=== PATIENT | female | born 1975 | race Caucasian/White ===

== ENCOUNTER 2023-01-18 21:41 | Outpatient (REF) | payer BC, SELFPAY ==
[2023-01-23 12:08] LABS: Age Gdln ACOG Testing Note (.); HPV Aptima Negative (Negative); IGP, Aptima HPV, rfx 16/18,45 Note (.)
== END 2023-01-18 21:42 | disposition home or self-care (01) ==
LOC: LAB 21:41
PROVIDERS: Visit Provider Physician Assistant
DX: Z01.419 Encounter for gynecological examination (general) (routine) without abnormal findings (principal)
CPT/HCPCS: 87624; G0145

== ENCOUNTER 2024-01-24 20:35 | Outpatient (REF) | payer BC, SELFPAY ==
[2024-01-28 17:10] LABS: Age Gdln ACOG Testing Note (.); HPV Aptima Negative (Negative); IGP, Aptima HPV, rfx 16/18,45 Note (.)
== END 2024-01-24 20:36 | disposition home or self-care (01) ==
LOC: LAB 20:35
PROVIDERS: Visit Provider Obstetrics & Gynecology
DX: Z01.419 Encounter for gynecological examination (general) (routine) without abnormal findings (principal)
CPT/HCPCS: 88175

== ENCOUNTER 2024-03-09 13:49 | Outpatient (OUT) | payer BC, SELFPAY ==
--- NOTE | 2024-03-09 13:58 | XR_ITS ---
The [address] [address] Patient Name: JAZMYNE MESSINA MRN: [id number] date: 1975 Sex: F Assigned Patient Location: [facility] Current Patient Location: Accession/Order Number: [id number] Exam Date: 03/09/2024 14:10 Report Date: 03/10/2024 06:22 At the request of: CHARLES TORRES Procedure: XR cervical spine 5V EXAMINATION: XR cervical spine 5V HISTORY: Cervical Radicular Pain ; left arm pain during extension of cervical spine COMPARISON: No relevant comparison available. FINDINGS: BONES: No significant spondylosis, scoliosis, fracture, or visible bony lesion. DISC SPACES: Mild narrowing C6-C7. PARASPINOUS: Negative. No paraspinous abnormality is seen. OTHER: Negative. XR/XR cervical spine 5V IMPRESSION: 1. Straightening of normal lordotic curvature; positioning versus muscle spasm. 2. C6 on 7 mild disc space narrowing. Otherwise no significant degenerative disc disease and facet arthropathy. Electronically authenticated by: DEBI ADDISON Date: 03/10/2024 06:22
--- OUTSIDE RECORDS SUMMARY | 2024-03-09 14:06 | XMS_ITS | CCD ---
Author Organization [facility] Inform ion Partnership [facility] Care Team Providers Care Webbing Inspector Name Role Phone JUSTUS BAILEY Attending Unavailable FADUMO SEO Referring Unavailable ANTONIA TORRES Referring Unavailable JUSTUS BAILEY Referring Unavailable ANTONIA TORRES Referring Unavailable DELORIS DEWITT ([facility]) Referring UnavailJUSTUS Hearn Attending Unavailable ANTONIA TORRES Referring Unavailable FADUMO SEO Admitting Unavailable FADUMO SEO Attending Unavailable FADUMO SEO Consulting Unavailable FADUMO SEO Attending Unavailable Allergies Allergy Classification Reported Allergen(s) Allergy Type Date of Onset Reaction(s) Facility (1 source) Morphine; Translations: [MORPHINE] Drug Allergy 05-10-2018 [facility] Repository Medications Current Medications Medication Drug Class(es) Dates Sig (Normalized) Sig (Original) estrogens, conjugated (retirement) 0.3 mg oral tablet (2 sources) Estrogen Start: 4 take 1 tablet by mouth once daily Conjugated Estrogens (Premarin) 0.3 mg tablet Active 0.3 MG PO Daily October 01, 2023 12:00am cyclically Methylprednisolone (2 sources) Corticosteroid Start: 4 Methylprednisolone Active 0 PO per package directions October 01, 2023 12:00am PO PER PKG DIR for 6 days triamcinolone acetonide 1 mg/ml topical cream (2 sources) Corticosteroid Start: 4 Triamcinolone Acetonide Active 1 APPLIC TOPICAL Daily October 01, 2023 12:00am Completed/Discontinued Medications Medication Drug Class(es) Dates Sig (Normalized) Sig (Original) baclofen 10 mg oral tablet (2 sources) gamma-Aminobutyric Acid-ergic Agonist Start: 10-01-2023 End: 10-01-2023 take 10 mg by mouth once daily Baclofen Discontinued 10 MG PO Daily October 01, 2023 12:00am October 01, 2023 10:43am fluticasone propionate 0.05 mg/actuat metered dose nasal spray (2 sources) Corticosteroid Start: 10-01-2023 End: 10-01-2023 take 1 spray(s) nasal route once daily Fluticasone Propionate Discontinued 1 SPRAY INTRANASAL Daily October 01, 2023 12:00am October 01, 2023 11:06am [employer] spray in each nostril Nasally Once a day; Note: Source Status: Start; Provider: Janice Muller gabapentin 100 mg oral capsule (2 sources) Anti-epileptic Agent Start: 10-01-2023 End: 10-01-2023 take 1 capsule by mouth twice daily in the morning, then take 2 capsules by mouth in the evening Gabapentin Discontinued 100 MG PO Twice daily October 01, 2023 12:00am October 01, 2023 11:06am FreeTextSig: TAKE 1 CAPSULE BY MOUTH IN THE MORNING AND 2 CAPSULES IN THE EVENING; Note: Source Status: Start; Refills: 3; Qty: 90 Capsule; Provider: Wilner Knight ( ) Problems Problem Classification Problem Date Documented Date Episodic/Chronic Allergic reactions (3 sources) Contact dermatitis; Translations: [Unspecified contact dermatitis, unspecified cause] 10-05-2023 Episodic Coagulation and hemorrhagic disorders (1 source) Thrombocytopenia, unspecified; Translations: [Thrombocytopenia, unspecified] Onset: 05-13-2018 Chronic Immunizations and screening for infectious disease (1 source) Encounter for screening for human papillomavirus (HPV); Translations: [ENC SCREENING HUMAN PAPILLOMAVIRUS] Onset: 03-27-2020 Episodic Other nutritional; endocrine; and metabolic disorders (1 source) Abnormal weight loss; Translations: [Abnormal weight loss] Onset: 05-13-2018 Episodic Other screening for suspected conditions (not mental disorders or infectious disease) (4 sources) Encounter for screening for malignant neoplasm of cervix; Translations: [ENC SCREENING MALIG NEOPLASM CERV] Onset: 03-25-2020 Episodic Residual codes; unclassified (1 source) Acquired absence of both cervix and uterus; Translations: [Acquired absence of both cervix and uterus] Onset: 05-13-2018 Episodic Residual codes; unclassified (1 source) Acquired absence of ovaries, bilateral; Translations: [Acquired absence of ovaries, bilateral] Onset: 05-13-2018 Episodic Residual codes; unclassified (1 source) Acquired absence of other genital organ(s); Translations: [Acquired absence of other genital organ(s)] Onset: 05-13-2018 Episodic Results Test Name Value Interpretation Reference Range Facil ity PAP ACOG PANEL 2: 30 to 65on 04-01-2020 Age Gdln ACOG Testing 30-65 Normal [facility] Comment on above: Performed By: #### [id number] #### [facility] [address] [place] [address] uEsebio Whittaker DIAGNOSIS: Comment Normal [facility] Comment on above: Result Comment: NEGA TIVE FOR INTRAEPITHELIAL LESION OR MALIGNANCY. THIS SPECIMEN WAS RESCREENED PART OF OUR CRANE MAN PROGRAM. Performed at: WB Performed By: #### [id number] #### [facility] [address] [place] [address] Eusebio Whittaker HPV Aptima Negative Normal Negative [facility] Comment on above: Result Comment: This test was developed and its performance characteristics determined by [employer]. It has not been cleared or approved by the Food and Drug Administration. This nucleic acid amplification test detects fourteen high-risk HPV types (16,18,31,33,35,39,45,51,52,56,58,59,66,68) without differentiation. Performed at: =G Performed By: #### [id number] #### [facility] [address] [place] [address] Eusebio Whittaker Methodology: Comment Normal [facility] Comment on above: Result Comment: This liquid based SurePath(R) pap test was screened with the assistance of an image guided system. Performed at: WB Performed By: #### [id number] #### [facility] [address] [place] [address] Eusebio Whittaker Note: Comment Normal [facility] Comment on above: Result Comment: The Pap smear is a screening test designed to aid in the detection of premalignant and malignant conditions of the uterine cervix. It is not a diagnostic procedure and should not be used as the sole means of detecting cervical cancer. Both false-positive and false-negative reports do occur. . Performed at: WB Performed By: #### [id number] #### [facility] [address] [address] Eusebio Whittaker Performed by: Comment Normal [facility] Comment on above: Result Comment: Juan Diego Bhagat, Shuttle Final Inspector (ASCP) Performed at: WB Performed By: #### [id number] #### [facility] [address] [address] Eusebio Whittaker QC reviewed by: Comment Normal [facility] Comment on above: Result Comment: Tiny Rutledge, Supervisory Shuttle Final Inspector (ASCP) Performed at: WB Performed By: #### [id number] #### [facility] [address] [address] Eusebio Whittaker Specimen adequacy: Comment Normal [facility] Comment on above: Result Comment: Sati sfactory for evaluation. No endocervical cells are present. This is consistent with a history of hysterectomy. Performed at: WB Performed By: #### [id number] #### [facility] [address] [address] Eusebio Remedios . . Normal [facility] Comment on above: Result Comment: Perf ormed at: WB Performed By: #### [id number] #### [facility] [address] [place] [address] Eusebio Whittaker CNOVSPon 06-10-2018 CNOVS Visit (SP) Office ([place]) SHANTAL MESSINA ([id number]) 1975 F Date Time Provider Department 06/10/18 10:45 AM JUSTUS BAILEY During your visit today, we recorded the following information about you: Temperature Pulse Respiration Blood pressure 98.5 degrees 84/minute 18/minute 128/78 Weight Height 71 kg 1.735 m Justus Bailey MD 06/10/2018 12:45 PM Signed HPI Shantal Messina is a 42 year old female who presents in follow up. Platelet aggregation panel was just barely abnormal. Her platelet count was 145. She did show me to bruises today on the back side of her left thigh. There are 2 bruises that are linear almost as if she was sitting on something. She denies trauma or sitting on anything abnormal. No other bruises or petechiae purpura that I can see. For now I will recommend observation. She has mild thrombocytopenia but I do not believe that its leading to any bruising or bleeding problem. She denies any type of mucosal bleeding. I do want to recheck her CBC and a von Willebrand panels well (her PTT was ok). She denies any hematuria, hematochezia, mucosal bleeding with brushing her teeth etc. Interestingly, her MCV is elevated. She denies significant alcohol intake, no hx of liver disease and her LFT's look ok. She presented 06/02/18 consultation with easy bruising and some mild thrombocytopenia. She has noticed easy bruising in her lower extremities but denies purpura, petechiae or any evidence of mucosal bleeding. She is on Premarin. Her platelet count was noted to be 117 in April 2018. She has no family history of bleeding or clotting etc. Shantal Messina ([id number]) Female [address] + CBC ? ? (FOR REMOTE [facility] USE) Order: [id number] Status: Final result ??Visible to patient: No (Not Released) Next appt: 01/12/2019 at 03:45 PM in [place] (Justus Bailey MD) Dx: Thrombocytopenia (HCC); Abnormal weig... Ref Range AND Units 2wk ago WBC 3.70 - 11.00 k/uL 3.89 RBC 3.90 - 5.20 m/uL 3.83 Hemoglobin 11.5 - 15.5 g/dL 13.6 Hematocrit 36.0 - 46.0 % 40.4 MCV 80.0 - 100.0 fL 105.5 MCH 26.0 - 34.0 pG 35.5 MCHC 30.5 - 36.0 g/dL 33.7 RDW-CV 11.5 - 15.0 % 13.4 Platelet Count 150 - 400 k/uL 145 MPV 9.0 - 12.7 fL 9.7 Absol Gran Count 1.45 - 7.50 k/uL 2.03 Absolute nRBC <0.01 k/uL <0.01 Resulting Agency CCM Specimen Collected: 05/23/18 10:56 AM Last Resulted: 05/23/18 ?2:56 PM Lab Flowsheet Order Details View Encounter Lab and Collection Details Routing Result History Other Results from 05/23/2018 PROTHROMBIN TIME/PT Order: [id number] Status: Final result ??Visible to patient: No (Not Released) Next appt: 01/12/2019 at 03:45 PM in [place] (Justus Bailey MD) Dx: Thrombocytopenia (HCC); Abnormal weig... Ref Range AND Units 2wk ago PT Sec 9.7 - 13.0 sec 9.3 PT INR 0.9 - 1.3 <0.9 Comment: Vitamin K Antagonist (VKA) Therapeutic Range: INR 2 to 3 (Target INR of 2.5) Note: For patients treated with VKA drugs, such as warfarin, the [place] [employer] 2012 Guideline recommends a therapeutic INR range of 2 to 3 (target INR of 2.5). This recommendation includes high-risk patients ?with antiphospholipid syndrome with previous arterial or venous thromboembolism, current-generation mechanical or bioprosthetic aortic heart valve replacement. Note: Patients with mechanical aortic valve replacement and additional risk factors for thromboembolic events (atrial fibrillation, previous thromboembolism, LV dysfunction, hypercoagulable conditions) or an older generation mechanical AVR (i.e., ball in-Cage) or any mechanical MVR should have a INR therapeutic range of 2.5 to 3.5 (target INR of 3). Chyna LIU, et al. Chest 2012, 141:7S-47S Gilberto RA, et al. [facility] 2017, 70: 252-289 Resulting Agency [facility] Specimen Collected: 05/23/18 10:55 AM Last Resulted: 05/23/18 11:36 AM Lab Flowsheet Order Details View Encounter Lab and Collection Details Routing Result History ACTIVATED PTT Order: [id number] Status: Final result ??Visible to patient: No (Not Released) Next appt: 01/12/2019 at 03:45 PM in [place] (Justus Bailey MD) Dx: Thrombocytopenia (HCC); Abnormal weig... Ref Range AND Units 2wk ago APTT 23.0 - 32.4 sec 26.7 Comment: Unfractionated Heparin Therapeutic Ranges: Standard Heparin Nomogram: 53 to 78 seconds (anti-Xa level of 0.3 to 0.7 U/ml) Low Dose/ACS Nomogram: 49 to 67 seconds (anti-Xa level of 0.2 to 0.5 U/ml) Stroke Treatment Nomogram: 49 to 67 seconds (anti-Xa level of 0.2 to 0.5 U/ml) Note: The APTT therapeutic range has been determined for the current lot of laboratory APTT reagent in use throughout the [facility]. Resulting Agency [facility] Specimen Collected: 05/23/18 10:55 AM Last Resulted: 05/23/18 11:36 AM Lab Flowsheet Order Details View Encounter Lab and Collection Details Routing Result History PLATELET AGGREGATION PANEL Order: [id number] Status: Final result ??Visible to patient: No (Not Released) Next appt: 01/12/2019 at 03:45 PM in [place] (Justus Bailey MD) Dx: Thrombocytopenia (HCC); Abnormal weig... Ref Range AND Units 2wk ago ADP Max Aggreg 70 - 100 % Max 86 ATP Rel by ADP 0.2 - 1.6 nM 0.3 ADP 20 Max Aggreg 70 - 100 % Max 76 ATP Rel by ADP 20 0.2 - 1.6 nM 0.5 Arach Max Aggreg 66 - 100 % Max 93 ATP Rel by Aracha 0 - 1.3 nM 0.7 Collagen Max Aggreg 70 - 100 % Max 79 ATP Rel by Collagen 0.4 - 1.9 nM 0.4 Epinephrine 67 - 95 % Max 16 ATP Rel by Epineph 0.3 - 1.7 nM 0.0 Epin 100 Max Aggreg 67 - 95 % Max 84 ATP Rel by Epi 100 0.3 - 1.7 nM 0.3 Risto 1500 Max Agg 75 - 100 % Max 86 Risto 1200 Max Agg 68 - 100 % Max 81 Risto 900 Max Agg 0 - 90 % Max 86 Risto 600 Max Agg 0 - 26 % Max 5 Interpretation (Platelet Aggregation) (NOTE) Comment: Performing Pathologist: Karina Carpenter Interpretation: Abnormal - see comment below. The platelet aggregation study is mildly abnormal. A laboratory study of platelet aggregation and stimulated granule release was performed. The whole blood platelet count is slightly decreased at 145 K/ul. ?The platelet aggregation study shows normal aggregation to all agonists, with the exception of 10 uM epinephrine (aggregation to 100uM epinephrine is normal). There is normal stimulated dense granule release to ADP, collagen, arachidonic acid and 100uM epinephrine, with a decreased reponse to 10uM epinephrine. The ristocetin induced platelet aggregation shows a normal dose response. SUMMARY: The aggregation study shows a limited abnormality to only epinephrine at one concentration (10uM), but is normal to all other agonists and to higher dose epinephrine (100uM). An isolated abnormality in only one concentration of one agonist is unlikely to represent an intrinsic platelet disorder or to be of clinical significance. Of note, an isolated defect in epinephrine aggregation may be seen in normal individuals. Resulting [facility] Specimen Collected: 05/23/18 10:55 AM Last Resulted: 05/24/18 ?5:40 PM Lab Flowsheet Order Details View Encounter Lab and Collection Details Routing Result History VITAMIN B12 BLOOD Order: [id number] Status: Final result ??Visible to patient: No (Not Released) Next appt: 01/12/2019 at 03:45 PM in [place] (Justus Bailey MD) Dx: Thrombocytopenia (HCC); Abnormal weig... Ref Range AND Units 2wk ago Vitamin B12 232 - 1,245 pg/mL 588 Resulting [facility] Specimen Collected: 05/23/18 10:55 AM Last Resulted: 05/23/18 ?8:40 PM Lab Flowsheet Order Details View Encounter Lab and Collection Details Routing Result History METHYLMALONIC ACID Order: [id number] Status: Final result ??Visible to patient: No (Not Released) Next appt: 01/12/2019 at 03:45 PM in [place] (Justus Bailey MD) Dx: Thrombocytopenia (HCC); Abnormal weig... Ref Range AND Units 2wk ago MMA 79 - 376 nmol/L 100 Comment: This test was developed and its performance characteristics determined by [facility] [place] ([facility]). It has not been cleared or approved by the FDA. [facility] is regulated under CLIA as qualified to perform high-complexity testing. This test is used for clinical purposes. It should not be regarded as investigational or for research. Resulting [facility] Specimen Collected: 05/23/18 10:55 AM Last Resulted: 05/25/18 ?8:47 AM Lab Flowsheet Order Details View Encounter Lab and Collection Details Routing Result History FOLATE SERUM Order: [id number] Status: Final result ??Visible to patient: No (Not Released) Next appt: 01/12/2019 at 03:45 PM in [place] (Justus Bailey MD) Dx: Thrombocytopenia (HCC); Abnormal weig... Ref Range AND Units 2wk ago Folate >4.7 ng/mL 13.5 Resulting Agency CCM Specimen Collected: 05/23/18 10:55 AM Last Resulted: 05/23/18 ?8:40 PM Lab Flowsheet Order Details View Encounter Lab and Collection Details Routing Result History TSH BLD Order: [id number] Status: Final result ??Visible to patient: No (Not Released) Next appt: 01/12/2019 at 03:45 PM in [place] (Justus Bailey MD) Dx: Thrombocytopenia (HCC); Abnormal weig... Ref Range AND Units 2wk ago TSH 0.400 - 5.500 uU/mL 2.160 Comment: If the patient is , TSH reference range varies by gestational period: First Trimester ? ?0.100-2.500 uU/mL Second Trimester ? 0.200-3.000 uU/mL Third Trimester ? ?0.300-3.000 uU/mL References: 1. Everett L, Angie M, Messi EK, et al. Management of Thyroid Dysfunction during and : An Endocrine Society Clinical Practice Guideline. J Clin Endocrinol Metab, 2012:97:1645-2978. 2. Patrick STONER. Overview of thyroid disease in . UpToDate. 2016. Accessed on ?November 22, 2015. Resulting Agency CCM Specimen Collected: 05/23/18 10:55 AM Last Resulted: 05/23/18 ?5:59 PM Lab Flowsheet Order Details View Encounter Lab and Collection Details Routing Result History HEPATIC FUNCTION PNL Order: [id number] Status: Final result ??Visible to patient: No (Not Released) Next appt: 01/12/2019 at 03:45 PM in [place] (Justus Bailey MD) Dx: Thrombocytopenia (HCC); Abnormal weig... Ref Range AND Units 2wk ago Albumin 3.9 - 4.9 g/dL 4.6 Bilirubin, Total 0.2 - 1.3 mg/dL 0.2 Bilirubin, Conjug <0.2 mg/dL <0.2 Alkaline Phosphatase 34 - 123 U/L 106 AST 13 - 35 U/L 16 ALT 7 - 38 U/L 15 Protein, Total 6.3 - 8.0 g/dL 7.5 Resulting Agency [facility] Specimen Collected: 05/23/18 10:55 AM Last Resulted: 05/23/18 11:41 AM Lab Flowsheet Order Details View Encounter Lab and Collection Details Routing Result History BASIC METABOLIC PNL Order: [id number] Status: Final result ??Visible to patient: No (Not Released) Next appt: 01/12/2019 at 03:45 PM in [place] (Justus Bailey MD) Dx: Thrombocytopenia (HCC); Abnormal weig... Ref Range AND Units 2wk ago Glucose 74 - 99 mg/dL 86 Comment: The [place] [employer] (ADA) provides guidance for cutoff values for fasting glucose and random glucose. The ADA defines fasting as no caloric intake for at least 8 hours. Fasting plasma glucose results between 100 to 125 ?mg/dL indicate increased risk for diabetes (prediabetes). Fasting plasma glucose results greater than or equal to 126 mg/dL meet the criteria for diagnosis of diabetes. In the absence of unequivocal hyperglycemia, results should be confirmed by repeat testing. In a patient with classic symptoms of hyperglycemia or hyperglycemic crisis, random plasma glucose results greater than or equal to 200 mg/dL meet the criteria for diagnosis of diabetes. Reference: Standards of Medical Care in Diabetes 2016, [place] [employer]. Diabetes Care. 2016.39(Suppl 1). BUN 7 - 21 mg/dL 12 Creatinine 0.58 - 0.96 mg/dL 0.70 Sodium 136 - 144 mmol/L 141 Potassium 3.7 - 5.1 mmol/L 4.3 Chloride 97 - 105 mmol/L 104 CO2 22 - 30 mmol/L 25 Anion Gap 9 - 18 mmol/L 12 Calcium 8.6 - 10.0 mg/dL 9.6 eGFR- >60 eGFR-All Other Races . >60 Comment: eGFR (Estimated GFR) Units of measure: mL/min/1.73 meters squared eGFR is derived from the reexpressed MDRD Study equation using the following parameters: serum creatinine, age, gender and race. The creatinine assay has been calibrated to be traceable to IDMS. An eGFR <60 mL/min/1.73m2 for >3 months is consistent with chronic kidney disease. Refer to KDOQI guidelines for clinical interpretation. In patients with unstable renal function, e.g. those with acute kidney injury, ?the eGFR may not accurately reflect actual GFR. Resulting Agency [facility] Specimen Collected: 05/23/18 10:55 AM Last Resulted: 05/23/18 11:41 AM Lab Flowsheet Order Details View Encounter Lab and Collection Details Routing Result History HIV 1,2 COMBO (AG/AB) Order: [id number] Status: Final result ??Visible to patient: No (Not Released) Next appt: 01/12/2019 at 03:45 PM in [place] (Justus Bailey MD) Dx: Thrombocytopenia (HCC); Abnormal weig... Ref Range AND Units 2wk ago HIV 12 Combo (Ag/Ab) Non Reactive Non Reactive Comment: (NOTE) HIV Information: ?[place] Rev. Code 3701.243(E): This information has been disclosed to you from confidential records protected from disclosure by state law. You shall make no further disclosure of this information without the specific, written, and informed release of the individual to whom it pertains, or as otherwise permitted by state law. A general authorization for the release of medical or other information is not sufficient for the purpose of the release of HIV test results or diagnoses. Resulting Agency CCM Specimen Collected: 05/23/18 10:55 AM Last Resulted: 05/23/18 ?7:23 PM Lab Flowsheet Order Details View Encounter Lab and Collection Details Routing Result History SED RATE WESTERGREN Order: [id number] Status: Final result ??Visible to patient: No (Not Released) Next appt: 01/12/2019 at 03:45 PM in [place] (Justus Bailey MD) Dx: Thrombocytopenia (HCC); Abnormal weig... Ref Range AND Units 2wk ago WSR 0 - 20 mm/hr 12 Resulting Agency CCM Specimen Collected: 05/23/18 10:55 AM Last Resulted: 05/23/18 ?5:47 PM Lab Flowsheet Order Details View Encounter Lab and Collection Details Routing Result History KAUSHIK BY IFA SCREEN Order: [id number] Status: Final result ??Visible to patient: No (Not Released) Next appt: 01/12/2019 at 03:45 PM in [place] (Justus Bailey MD) Dx: Thrombocytopenia (HCC); Abnormal weig... Ref Range AND Units 2wk ago KAUSHIK Negative Negative Comment: Normal range : negative at <1:80 serum dilution. Approximately 6% of patients with connective tissue diseases with low positive ?EIA values are negative by IFA. ?Recommend follow-up with specific antinuclear antibodies if clinically indicated. KAUSHIK Titer Negative Negative Comment: Normal range : negative at <1:80 serum dilution. KAUSHIK Pattern Not applicable for negative result. Resulting Agency CCM Specimen Collected: 05/23/18 10:55 AM Last Resulted: 05/24/18 ?1:28 PM Lab Flowsheet Order Details View Encounter Lab and Collection Details Routing Result History Collection Information WHOLE BLOOD Collected: 05/23/2018 10:56 AM Resulting Agency: [facility] Result Information Flag: Abnormal Status: Final result (Resulted: 05/23/2018 ?2:56 PM) Provider Status: Reviewed Patient Release Status: This result is not viewable by the patient. Routing History Priority Sent On From To Message Type 05/23/2018 11:37 AM , Lab [facility] Justus Bailey Results View Smartlink Info ABS GRAN CT + CBC ? ? (FOR REMOTE [facility] USE) (Order #[id number]) on 05/23/18 Order Report Order Details Current Outpatient Prescriptions: PREMARIN 0.9 mg tablet TAKE 1 TABLET BY MOUTH EVERYDAY AT BEDTIME No current facility-administered medications for this visit. ALLERGIES Allergen Reactions - Morphine Hives REVIEW OF SYSTEMS GENERAL: No weight loss, malaise or fevers., SEE HPI HEENT: Negative for frequent or significant headaches, No changes in hearing or vision, no nose bleeds or other nasal problems NECK: Negative for lumps, goiter, pain and significant neck swelling RESPIRATORY: Negative for cough, wheezing or shortness of breath. CARDIOVASCULAR: Negative for chest pain, leg swelling or palpitations. GI: Negative for abdominal discomfort, blood in stools or black stools or change in bowel habits MUSCULOSKELETAL: Negative for joint pain or swelling, back pain or muscle pain. SKIN: Negative for lesions, rash, and itching. PSYCH: Negative for sleep disturbance, mood disorder and recent psychosocial stressors. HEMATOLOGY/LYMPHOLOGY: Negative for prolonged bleeding, bruising easily or swollen nodes. NEURO: No history of headaches, syncope, paralysis, seizures or tremors All other reviewed and negative other than HPI. PHYSICAL EXAM: BP 128/78 Pulse 84 Temp 36.9 ?C (98.5 ?F) (Oral) Resp 18 Ht 173.5 cm (5' 8.31 ) Wt 71 kg (156 lb 9.6 oz) SpO2 100% BMI 23.60 kg/m? General Appearance: alert and oriented, appearing in no acute distress Skin: see above Head: normal. Eyes: Anicteric sclera. Pupils are equally round. Extraocular movements are intact. . Ears: external ears normal Neck: Supple, no adenopathy; thyroid symmetric, normal size, no bruits. Back:no pain with ambulation Lungs: good air exchange overall Heart: RRR Abdomen: No obvious evidence of rebound tenderness or guarding Extremities: Extremities normal. No deformities, edema, or skin discoloration. Good capillary refill.. Musculoskeletal: Spine range of motion normal. Muscular strength intact. Peripheral Pulses: Normal. Neurologic: Gait normal. No gross cerebellar defects Psychiatric: the patient has an appropriate affect Hemoglobin (g/dL) Date Value 05/23/2018 13.6 Hematocrit (%) Date Value 05/23/2018 40.4 WBC (k/uL) Date Value 05/23/2018 3.89 Platelet Count (k/uL) Date Value 05/23/2018 145 ASSESSMENT/PLAN: 1. Thrombocytopenia (HCC) - ICD9: 287.5, ICD10: D69.6 Low grade and very mild. DDX with chronic ITP, environmental effects, other. No evidence of liver disease, endocrinopathy, MDS at this point. I will recommend observation. I will want to check von Willebrand panel but understand the yield will likely be low. Her MCV is elevated. In this situations it is usually more of a skin phenomenon and aging. She has no mucosal bleeding that I can see. With this and her low grade thrombocytopenia, I will recommend observation for now. I will check CBC in 6 months. - VON WILLEBRAND DX PANEL - ABS GRAN CT + CBC (FOR REMOTE [facility] USE) Justus Bailey MD Referring Provider: ANTONIA TORRES [[id number]] Allergies As of Date: 06/10/2018 Noted Allergy Reaction MORPHINE 05/10/2018 4 - Hives Date Reviewed: 06/10/2018 Reviewed by: Mela Alfaro - Fully Assessed Reason for Visit: Thrombocytopenia [603] Cmt: 4 week follow up Primary Visit Diagnosis:Thrombocytop enia (HCC) [D69.6] Order(s):VON WILLEBRAND DX PANEL [SQVWFPN] Order #: [id number] FUTURE ABS GRAN CT + CBC (FOR REMOTE [facility] USE) [SQRAGCBC] Order #: [id number] FUTURE Disposition: Return in about 8 months (around 01/26/2019). Follow-up and Disposition History Recorded Prescriptions as of 06/10/2018 Sig: PREMARIN 0.9 MG TABLET TAKE 1 TABLET BY MOUTH EVERYD* Problem List As Of Date 06/10/2018 Noted Resolved Thrombocytopenia (HCC) [D69.6] INVALID FOR* S/P PHILLY-BSO [Z90.710, Z90.722, Z90.79] INVALID FOR* Abnormal weight loss [R63.4] INVALID FOR* Encounter Status:Closed by JUSTUS BAILEY MD on 06/10/18 Normal [facility] PROGRESSon 06-10-2018 Protein mass conc HNO ID: [id number] Author: Justus Bailey Service: (none) Author Type: Physician Type: Progress Notes Filed: 06/10/2018 12:45 PM Note Text: HPI Shantal Messina is a 42 year old female who presents in follow up. Platelet aggregation panel was just barely abnormal. Her platelet count was 145. She did show me to bruises today on the back side of her left thigh. There are 2 bruises that are linear almost as if she was sitting on something. She denies trauma or sitting on anything abnormal. No other bruises or petechiae purpura that I can see. For now I will recommend observation. She has mild thrombocytopenia but I do not believe that its leading to any bruising or bleeding problem. She denies any type of mucosal bleeding. I do want to recheck her CBC and a von Willebrand panels well (her PTT was ok). She denies any hematuria, hematochezia, mucosal bleeding with brushing her teeth etc. Interestingly, her MCV is elevated. She denies significant alcohol intake, no hx of liver disease and her LFT's look ok. She presented 06/02/18 consultation with easy bruising and some mild thrombocytopenia. She has noticed easy bruising in her lower extremities but denies purpura, petechiae or any evidence of mucosal bleeding. She is on Premarin. Her platelet count was noted to be 117 in April 2018. She has no family history of bleeding or clotting etc. Shantal Messina ([id number]) Female [address] + CBC ? ? (FOR REMOTE [facility] USE) Order: [id number] Status: Final result ??Visible to patient: No (Not Released) Next appt: 01/12/2019 at 03:45 PM in [place] (Justus Bailey MD) Dx: Thrombocytopenia (HCC); Abnormal weig... Ref Range AND Units 2wk ago WBC 3.70 - 11.00 k/uL 3.89 RBC 3.90 - 5.20 m/uL 3.83 Hemoglobin 11.5 - 15.5 g/dL 13.6 Hematocrit 36.0 - 46.0 % 40.4 MCV 80.0 - 100.0 fL 105.5 MCH 26.0 - 34.0 pG 35.5 MCHC 30.5 - 36.0 g/dL 33.7 RDW-CV 11.5 - 15.0 % 13.4 Platelet Count 150 - 400 k/uL 145 MPV 9.0 - 12.7 fL 9.7 Absol Gran Count 1.45 - 7.50 k/uL 2.03 Absolute nRBC <0.01 k/uL <0.01 Resulting Agency CCM Specimen Collected: 05/23/18 10:56 AM Last Resulted: 05/23/18 ?2:56 PM Lab Flowsheet Order Details View Encounter Lab and Collection Details Routing Result History Other Results from 05/23/2018 PROTHROMBIN TIME/PT Order: [id number] Status: Final result ??Visible to patient: No (Not Released) Next appt: 01/12/2019 at 03:45 PM in [place] (Justus Bailey MD) Dx: Thrombocytopenia (HCC); Abnormal weig... Ref Range AND Units 2wk ago PT Sec 9.7 - 13.0 sec 9.3 PT INR 0.9 - 1.3 <0.9 Comment: Vitamin K Antagonist (VKA) Therapeutic Range: INR 2 to 3 (Target INR of 2.5) Note: For patients treated with VKA drugs, such as warfarin, the [place] [employer] 2012 Guideline recommends a therapeutic INR range of 2 to 3 (target INR of 2.5). This recommendation includes high-risk patients ?with antiphospholipid syndrome with previous arterial or venous thromboembolism, current-generation mechanical or bioprosthetic aortic heart valve replacement. Note: Patients with mechanical aortic valve replacement and additional risk factors for thromboembolic events (atrial fibrillation, previous thromboembolism, LV dysfunction, hypercoagulable conditions) or an older generation mechanical AVR (i.e., ball in-Cage) or any mechanical MVR should have a INR therapeutic range of 2.5 to 3.5 (target INR of 3). Chyna GH, et al. Chest 2012, 141:7S-47S Gilberto RA, et al. [facility] 2017, 70: 252-289 Resulting Agency LABAVH Specimen Collected: 05/23/18 10:55 AM Last Resulted: 05/23/18 11:36 AM Lab Flowsheet Order Details View Encounter Lab and Collection Details Routing Result History ACTIVATED PTT Order: [id number] Status: Final result ??Visible to patient: No (Not Released) Next appt: 01/12/2019 at 03:45 PM in [place] (Justus Bailey MD) Dx: Thrombocytopenia (HCC); Abnormal weig... Ref Range AND Units 2wk ago APTT 23.0 - 32.4 sec 26.7 Comment: Unfractionated Heparin Therapeutic Ranges: Standard Heparin Nomogram: 53 to 78 seconds (anti-Xa level of 0.3 to 0.7 U/ml) Low Dose/ACS Nomogram: 49 to 67 seconds (anti-Xa level of 0.2 to 0.5 U/ml) Stroke Treatment Nomogram: 49 to 67 seconds (anti-Xa level of 0.2 to 0.5 U/ml) Note: The APTT therapeutic range has been determined for the current lot of laboratory APTT reagent in use throughout the [facility]. Resulting Agency LABAVH Specimen Collected: 05/23/18 10:55 AM Last Resulted: 05/23/18 11:36 AM Lab Flowsheet Order Details View Encounter Lab and Collection Details Routing Result History PLATELET AGGREGATION PANEL Order: [id number] Status: Final result ??Visible to patient: No (Not Released) Next appt: 01/12/2019 at 03:45 PM in [place] (Justus Bailey MD) Dx: Thrombocytopenia (HCC); Abnormal weig... Ref Range AND Units 2wk ago ADP Max Aggreg 70 - 100 % Max 86 ATP Rel by ADP 0.2 - 1.6 nM 0.3 ADP 20 Max Aggreg 70 - 100 % Max 76 ATP Rel by ADP 20 0.2 - 1.6 nM 0.5 Arach Max Aggreg 66 - 100 % Max 93 ATP Rel by Aracha 0 - 1.3 nM 0.7 Collagen Max Aggreg 70 - 100 % Max 79 ATP Rel by Collagen 0.4 - 1.9 nM 0.4 Epinephrine 67 - 95 % Max 16 ATP Rel by Epineph 0.3 - 1.7 nM 0.0 Epin 100 Max Aggreg 67 - 95 % Max 84 ATP Rel by Epi 100 0.3 - 1.7 nM 0.3 Risto 1500 Max Agg 75 - 100 % Max 86 Risto 1200 Max Agg 68 - 100 % Max 81 Risto 900 Max Agg 0 - 90 % Max 86 Risto 600 Max Agg 0 - 26 % Max 5 Interpretation (Platelet Aggregation) (NOTE) Comment: Performing Pathologist: Karina Carpenter Interpretation: Abnormal - see comment below. The platelet aggregation study is mildly abnormal. A laboratory study of platelet aggregation and stimulated granule release was performed. The whole blood platelet count is slightly decreased at 145 K/ul. ?The platelet aggregation study shows normal aggregation to all agonists, with the exception of 10 uM epinephrine (aggregation to 100uM epinephrine is normal). There is normal stimulated dense granule release to ADP, collagen, arachidonic acid and 100uM epinephrine, with a decreased reponse to 10uM epinephrine. The ristocetin induced platelet aggregation shows a normal dose response. SUMMARY: The aggregation study shows a limited abnormality to only epinephrine at one concentration (10uM), but is normal to all other agonists and to higher dose epinephrine (100uM). An isolated abnormality in only one concentration of one agonist is unlikely to represent an intrinsic platelet disorder or to be of clinical significance. Of note, an isolated defect in epinephrine aggregation may be seen in normal individuals. Resulting Agency CCM Specimen Collected: 05/23/18 10:55 AM Last Resulted: 05/24/18 ?5:40 PM Lab Flowsheet Order Details View Encounter Lab and Collection Details Routing Result History VITAMIN B12 BLOOD Order: [id number] Status: Final result ??Visible to patient: No (Not Released) Next appt: 01/12/2019 at 03:45 PM in [place] (Justus Bailey MD) Dx: Thrombocytopenia (HCC); Abnormal weig... Ref Range AND Units 2wk ago Vitamin B12 232 - 1,245 pg/mL 588 Resulting Agency CCM Specimen Collected: 05/23/18 10:55 AM Last Resulted: 05/23/18 ?8:40 PM Lab Flowsheet Order Details View Encounter Lab and Collection Details Routing Result History METHYLMALONIC ACID Order: [id number] Status: Final result ??Visible to patient: No (Not Released) Next appt: 01/12/2019 at 03:45 PM in [place] (Justus Bailey MD) Dx: Thrombocytopenia (HCC); Abnormal weig... Ref Range AND Units 2wk ago MMA 79 - 376 nmol/L 100 Comment: This test was developed and its performance characteristics determined by [facility] [place] ([facility]). It has not been cleared or approved by the FDA. -[facility] is regulated under CLIA as qualified to perform high-complexity testing. This test is used for clinical purposes. It should not be regarded as investigational or for research. Resulting Agency CCM Specimen Collected: 05/23/18 10:55 AM Last Resulted: 05/25/18 ?8:47 AM Lab Flowsheet Order Details View Encounter Lab and Collection Details Routing Result History FOLATE SERUM Order: [id number] Status: Final result ??Visible to patient: No (Not Released) Next appt: 01/12/2019 at 03:45 PM in [place] (Justus Bailey MD) Dx: Thrombocytopenia (HCC); Abnormal weig... Ref Range AND Units 2wk ago Folate >4.7 ng/mL 13.5 Resulting Agency CCM Specimen Collected: 05/23/18 10:55 AM Last Resulted: 05/23/18 ?8:40 PM Lab Flowsheet Order Details View Encounter Lab and Collection Details Routing Result History TSH BLD Order: [id number] Status: Final result ??Visible to patient: No (Not Released) Next appt: 01/12/2019 at 03:45 PM in [place] (Justus Bailey MD) Dx: Thrombocytopenia (HCC); Abnormal weig... Ref Range AND Units 2wk ago TSH 0.400 - 5.500 uU/mL 2.160 Comment: If the patient is , TSH reference range varies by gestational period: First Trimester ? ?0.100-2.500 uU/mL Second Trimester ? 0.200-3.000 uU/mL Third Trimester ? ?0.300-3.000 uU/mL References: 1. Everett L, Angie M, Messi EK, et al. Management of Thyroid Dysfunction during and : An Endocrine Society Clinical Practice Guideline. J Clin Endocrinol Metab, 2012:97:0937-8242. 2. Patrick DS. Overview of thyroid disease in . UpToDate. 2016. Accessed on ?November 22, 2015. Resulting Agency CCM Specimen Collected: 05/23/18 10:55 AM Last Resulted: 05/23/18 ?5:59 PM Lab Flowsheet Order Details View Encounter Lab and Collection Details Routing Result History HEPATIC FUNCTION PNL Order: [id number] Status: Final result ??Visible to patient: No (Not Released) Next appt: 01/12/2019 at 03:45 PM in [place] (Justus Bailey MD) Dx: Thrombocytopenia (HCC); Abnormal weig... Ref Range AND Units 2wk ago Albumin 3.9 - 4.9 g/dL 4.6 Bilirubin, Total 0.2 - 1.3 mg/dL 0.2 Bilirubin, Conjug <0.2 mg/dL <0.2 Alkaline Phosphatase 34 - 123 U/L 106 AST 13 - 35 U/L 16 ALT 7 - 38 U/L 15 Protein, Total 6.3 - 8.0 g/dL 7.5 Resulting Agency LABAV Specimen Collected: 05/23/18 10:55 AM Last Resulted: 05/23/18 11:41 AM Lab Flowsheet Order Details View Encounter Lab and Collection Details Routing Result History BASIC METABOLIC PNL Order: [id number] Status: Final result ??Visible to patient: No (Not Released) Next appt: 01/12/2019 at 03:45 PM in [place] (Justus Bailey MD) Dx: Thrombocytopenia (HCC); Abnormal weig... Ref Range AND Units 2wk ago Glucose 74 - 99 mg/dL 86 Comment: The [place] [employer] (ADA) provides guidance for cutoff values for fasting glucose and random glucose. The ADA defines fasting as no caloric intake for at least 8 hours. Fasting plasma glucose results between 100 to 125 ?mg/dL indicate increased risk for diabetes (prediabetes). Fasting plasma glucose results greater than or equal to 126 mg/dL meet the criteria for diagnosis of diabetes. In the absence of unequivocal hyperglycemia, results should be confirmed by repeat testing. In a patient with classic symptoms of hyperglycemia or hyperglycemic crisis, random plasma glucose results greater than or equal to 200 mg/dL meet the criteria for diagnosis of diabetes. Reference: Standards of Medical Care in Diabetes 2016, [place] [employer]. Diabetes Care. 2016.39(Suppl 1). BUN 7 - 21 mg/dL 12 Creatinine 0.58 - 0.96 mg/dL 0.70 Sodium 136 - 144 mmol/L 141 Potassium 3.7 - 5.1 mmol/L 4.3 Chloride 97 - 105 mmol/L 104 CO2 22 - 30 mmol/L 25 Anion Gap 9 - 18 mmol/L 12 Calcium 8.6 - 10.0 mg/dL 9.6 eGFR- >60 eGFR-All Other Races . >60 Comment: eGFR (Estimated GFR) Units of measure: mL/min/1.73 meters squared eGFR is derived from the reexpressed MDRD Study equation using the following parameters: serum creatinine, age, gender and race. The creatinine assay has been calibrated to be traceable to IDMS. An eGFR <60 mL/min/1.73m2 for >3 months is consistent with chronic kidney disease. Refer to KDOQI guidelines for clinical interpretation. In patients with unstable renal function, e.g. those with acute kidney injury, ?the eGFR may not accurately reflect actual GFR. Resulting Agency LABAV Specimen Collected: 05/23/18 10:55 AM Last Resulted: 05/23/18 11:41 AM Lab Flowsheet Order Details View Encounter Lab and Collection Details Routing Result History HIV 1,2 COMBO (AG/AB) Order: [id number] Status: Final result ??Visible to patient: No (Not Released) Next appt: 01/12/2019 at 03:45 PM in [place] (Justus Bailey MD) Dx: Thrombocytopenia (HCC); Abnormal weig... Ref Range AND Units 2wk ago HIV 12 Combo (Ag/Ab) Non Reactive Non Reactive Comment: (NOTE) HIV Information: ?[place] Rev. Code 3701.243(E): This information has been disclosed to you from confidential records protected from disclosure by state law. You shall make no further disclosure of this information without the specific, written, and informed release of the individual to whom it pertains, or as otherwise permitted by state law. A general authorization for the release of medical or other information is not sufficient for the purpose of the release of HIV test results or diagnoses. Resulting Agency CCM Specimen Collected: 05/23/18 10:55 AM Last Resulted: 05/23/18 ?7:23 PM Lab Flowsheet Order Details View Encounter Lab and Collection Details Routing Result History [facility] Order: [id number] Status: Final result ??Visible to patient: No (Not Released) Next appt: 01/12/2019 at 03:45 PM in [place] (Justus Bailey MD) Dx: Thrombocytopenia (HCC); Abnormal weig... Ref Range AND Units 2wk ago WSR 0 - 20 mm/hr 12 Resulting Agency CCM Specimen Collected: 05/23/18 10:55 AM Last Resulted: 05/23/18 ?5:47 PM Lab Flowsheet Order Details View Encounter Lab and Collection Details Routing Result History KAUSHIK BY IFA SCREEN Order: [id number] Status: Final result ??Visible to patient: No (Not Released) Next appt: 01/12/2019 at 03:45 PM in [place] (Justus Bailey MD) Dx: Thrombocytopenia (HCC); Abnormal weig... Ref Range AND Units 2wk ago KAUSHIK Negative Negative Comment: Normal range : negative at <1:80 serum dilution. Approximately 6% of patients with connective tissue diseases with low positive ?EIA values are negative by IFA. ?Recommend follow-up with specific antinuclear antibodies if clinically indicated. KAUSHIK Titer Negative Negative Comment: Normal range : negative at <1:80 serum dilution. KAUSHIK Pattern Not applicable for negative result. Resulting Agency CCM Specimen Collected: 05/23/18 10:55 AM Last Resulted: 05/24/18 ?1:28 PM Lab Flowsheet Order Details View Encounter Lab and Collection Details Routing Result History Collection Information WHOLE BLOOD Collected: 05/23/2018 10:56 AM Resulting Agency: [facility] Result Information Flag: Abnormal Status: Final result (Resulted: 05/23/2018 ?2:56 PM) Provider Status: Reviewed Patient Release Status: This result is not viewable by the patient. Routing History Priority Sent On From To Message Type 05/23/2018 11:37 AM , Lab Randall Stefanie In Justus Bailey Results View [employer] Info ABS GRAN CT + CBC ? ? (FOR REMOTE [facility] USE) (Order #[id number]) on 05/23/18 Order Report Order Details Current Outpatient Prescriptions: PREMARIN 0.9 mg tablet TAKE 1 TABLET BY MOUTH EVERYDAY AT BEDTIME No current facility-administered medications for this visit. ALLERGIES Allergen Reactions - Morphine Hives REVIEW OF SYSTEMS GENERAL: No weight loss, malaise or fevers., SEE HPI HEENT: Negative for frequent or significant headaches, No changes in hearing or vision, no nose bleeds or other nasal problems NECK: Negative for lumps, goiter, pain and significant neck swelling RESPIRATORY: Negative for cough, wheezing or shortness of breath. CARDIOVASCULAR: Negative for chest pain, leg swelling or palpitations. GI: Negative for abdominal discomfort, blood in stools or black stools or change in bowel habits MUSCULOSKELETAL: Negative for joint pain or swelling, back pain or muscle pain. SKIN: Negative for lesions, rash, and itching. PSYCH: Negative for sleep disturbance, mood disorder and recent psychosocial stressors. HEMATOLOGY/LYMPHOLOGY: Negative for prolonged bleeding, bruising easily or swollen nodes. NEURO: No history of headaches, syncope, paralysis, seizures or tremors All other reviewed and negative other than HPI. PHYSICAL EXAM: BP 128/78 Pulse 84 Temp 36.9 ?C (98.5 ?F) (Oral) Resp 18 Ht 173.5 cm (5' 8.31 ) Wt 71 kg (156 lb 9.6 oz) SpO2 100% BMI 23.60 kg/m? General Appearance: alert and oriented, appearing in no acute distress Skin: see above Head: normal. Eyes: Anicteric sclera. Pupils are equally round. Extraocular movements are intact. . Ears: external ears normal Neck: Supple, no adenopathy; thyroid symmetric, normal size, no bruits. Back:no pain with ambulation Lungs: good air exchange overall Heart: RRR Abdomen: No obvious evidence of rebound tenderness or guarding Extremities: Extremities normal. No deformities, edema, or skin discoloration. Good capillary refill.. Musculoskeletal: Spine range of motion normal. Muscular strength intact. Peripheral Pulses: Normal. Neurologic: Gait normal. No gross cerebellar defects Psychiatric: the patient has an appropriate affect Hemoglobin (g/dL) Date Value 05/23/2018 13.6 Hematocrit (%) Date Value 05/23/2018 40.4 WBC (k/uL) Date Value 05/23/2018 3.89 Platelet Count (k/uL) Date Value 05/23/2018 145 ASSESSMENT/PLAN: 1. Thrombocytopenia (HCC) - ICD9: 287.5, ICD10: D69.6 Low grade and very mild. DDX with chronic ITP, environmental effects, other. No evidence of liver disease, endocrinopathy, MDS at this point. I will recommend observation. I will want to check von Willebrand panel but understand the yield will likely be low. Her MCV is elevated. In this situations it is usually more of a skin phenomenon and aging. She has no mucosal bleeding that I can see. With this and her low grade thrombocytopenia, I will recommend observation for now. I will check CBC in 6 months. - VON WILLEBRAND DX PANEL - ABS GRAN CT + CBC (FOR REMOTE [facility] USE) Justus Bailey MD Normal [facility] KAUSHIK by IFAon 05-23-2018 KAUSHIK Pattern Negative Normal [facility] Comment on above: Performed By: #### W SR, TSH, HIV12C, B12, SERFOL, ANAIFS, MMA ####[facility], [place] [phone] KAUSHIK Titer Negative Normal Negative [facility] Comment on above: Result Comment: Norm al range : negative at <1:80 serum dilution. Performed By: #### W SR, TSH, HIV12C, B12, SERFOL, ANAIFS, MMA ####[facility], [place] [phone] Nuclear Ab IF titer (S) Negative Normal Negative [facility] Comment on above: Result Comment: Norm al range : negative at <1:80 serum dilution. Approximately 6% of patients with connective tissue diseases with low positive EIA values are negative by IFA. Recommend follow-up with specific antinuclear antibodies if clinically indicated. Performed By: #### W SR, TSH, HIV12C, B12, SERFOL, ANAIFS, MMA ####[facility], [place] [phone] APTTon 05-23-2018 aPTT Coag time (Bld) 26.7 s Normal 23.0-32.4 [facility] Comment on above: Result Comment: Unfr actionated Heparin Therapeutic Ranges: Standard Heparin Nomogram: 53 to 78 seconds (anti-Xa level of 0.3 to 0.7 U/ml) Low Dose/ACS Nomogram: 49 to 67 seconds (anti-Xa level of 0.2 to 0.5 U/ml) Stroke Treatment Nomogram: 49 to 67 seconds (anti-Xa level of 0.2 to 0.5 U/ml) Note: The APTT therapeutic range has been determined for the current lot of laboratory APTT reagent in use throughout the [facility]. Performed By: #### W SR, TSH, HIV12C, B12, SERFOL, ANAIFS, MMA #### [facility] [address] [address] Basic Metabolic Panlon 05-23 Anion gap molar conc 12 mmol/L Normal 9-18 [facility] Comment on above: Performed By: #### W SR, TSH, HIV12C, B12, SERFOL, ANAIFS, MMA #### [facility] [address] [place] [address] Calcium mass conc 9.6 mg/dL Normal 8.6-10.0 [facility] Comment on above: Performed By: #### W SR, TSH, HIV12C, B12, SERFOL, ANAIFS, MMA #### [facility] [address] [place] [phone] Chloride molar conc 104 mmol/L Normal 97-105 [facility] Comment on above: Performed By: #### W SR, TSH, HIV12C, B12, SERFOL, ANAIFS, MMA #### [facility] [address] [place] [phone] CO2 molar conc 25 mmol/L Normal 22-30 [facility] Comment on above: Performed By: #### W SR, TSH, HIV12C, B12, SERFOL, ANAIFS, MMA #### [facility] [address] [place] [address] Creatinine mass conc 0.70 mg/dL Normal 0.58-0.96 [facility] Comment on above: Performed By: #### W SR, TSH, HIV12C, B12, SERFOL, ANAIFS, MMA #### [facility] [address] [place] [phone] eGFR- Amer. >60 Normal [facility] Comment on above: Performed By: #### W SR, TSH, HIV12C, B12, SERFOL, ANAIFS, MMA #### [facility] [address] [place] [phone] GFR/1.73 sq M predicted among non-blacks MDRD vol rate/area (S/P/Bld) mL/min/{1.73_m2} Normal [facility] Comment on above: Result Comment: eGFR (Estimated GFR) Units of measure: mL/min/1.73 meters squared eGFR is derived from the reexpressed MDRD Study equation using the following parameters: serum creatinine, age, gender and race. The creatinine assay has been calibrated to be traceable to IDMS. An eGFR <60 mL/min/1.73m2 for >3 months is consistent with chronic kidney disease. Refer to KDOQI guidelines for clinical interpretation. In patients with unstable renal function, e.g. those with acute kidney injury, the eGFR may not accurately reflect actual GFR. Performed By: #### W SR, TSH, HIV12C, B12, SERFOL, ANAIFS, MMA #### [facility] [address] [place] [phone] Glucose mass conc 86 mg/dL Normal 74-99 [facility] Comment on above: Result Comment: The [place] Diabetes Association (ADA) provides guidance for cutoff values for fasting glucose and random glucose. The ADA defines fasting as no caloric intake for at least 8 hours. Fasting plasma glucose results between 100 to 125 mg/dL indicate increased risk for diabetes (prediabetes). Fasting plasma glucose results greater than or equal to 126 mg/dL meet the criteria for diagnosis of diabetes. In the absence of unequivocal hyperglycemia, results should be confirmed by repeat testing. In a patient with classic symptoms of hyperglycemia or hyperglycemic crisis, random plasma glucose results greater than or equal to 200 mg/dL meet the criteria for diagnosis of diabetes. Reference: Standards of Medical Care in Diabetes 2016, [place] [employer]. Diabetes Care. 2016.39(Suppl 1). Performed By: #### W SR, TSH, HIV12C, B12, SERFOL, ANAIFS, MMA #### [facility] [address] [place] [address] Potassium molar conc 4.3 mmol/L Normal 3.7-5.1 [facility] Comment on above: Performed By: #### W SR, TSH, HIV12C, B12, SERFOL, ANAIFS, MMA #### [facility] [address] [place] [address] Sodium molar conc 141 mmol/L Normal 136-144 [facility] Comment on above: Performed By: #### W SR, TSH, HIV12C, B12, SERFOL, ANAIFS, MMA #### [facility] [address] [place] [address] Urea nitrogen mass conc 12 mg/dL Normal 7-21 [facility] Comment on above: Performed By: #### W SR, TSH, HIV12C, B12, SERFOL, ANAIFS, MMA #### [facility] [address] [place] [address] Folate, Serumon 05-23-2018 Folate mass conc 13.5 ng/mL Normal >4.7 [facility] Comment on above: Performed By: #### W SR, TSH, HIV12C, B12, SERFOL, ANAIFS, MMA ####[facility] [place], [place] [phone] HIV 12 Combo (Ag/Ab)on 05-23 HIV 12 Ag/Ab Non Reactive Normal Non Reactive [facility] Comment on above: Result Comment: (NOT E) HIV Information: [place] Rev. Code 3701.243(E): This information has been disclosed to you from confidential records protected from disclosure by state law. You shall make no further disclosure of this information without the specific, written, and informed release of the individual to whom it pertains, or as otherwise permitted by state law. A general authorization for the release of medical or other information is not sufficient for the purpose of the release of HIV test results or diagnoses. Performed By: #### W SR, TSH, HIV12C, B12, SERFOL, ANAIFS, MMA #### [facility] [address] [place] [address] Hepatic Functn Panelon 05-23 Albumin mass conc 4.6 g/dL Normal 3.9-4.9 [facility] Comment on above: Performed By: #### W SR, TSH, HIV12C, B12, SERFOL, ANAIFS, MMA #### [facility] [address] [place] [address] ALP enzyme act/vol 106 U/L Normal 34-123 [facility] Comment on above: Performed By: #### W SR, TSH, HIV12C, B12, SERFOL, ANAIFS, MMA #### [facility] [address] [place] [phone] ALT enzyme act/vol 15 U/L Normal 7-38 [facility] Comment on above: Performed By: #### W SR, TSH, HIV12C, B12, SERFOL, ANAIFS, MMA #### [facility] [address] [place] [address] AST enzyme act/vol 16 U/L Normal 13-35 [facility] Comment on above: Performed By: #### W SR, TSH, HIV12C, B12, SERFOL, ANAIFS, MMA #### [facility] [address] [place] [address] Bilirubin mass conc 0.2 mg/dL Normal 0.2-1.3 [facility] Comment on above: Performed By: #### W SR, TSH, HIV12C, B12, SERFOL, ANAIFS, MMA #### [facility] [address] [place] [address] Bilirubin,Conjugate d <0.2 Normal <0.2 [facility] Comment on above: Performed By: #### W SR, TSH, HIV12C, B12, SERFOL, ANAIFS, MMA #### [facility] [address] [place] [address] Protein mass conc 7.5 g/dL Normal 6.3-8.0 [facility] Comment on above: Performed By: #### W SR, TSH, HIV12C, B12, SERFOL, ANAIFS, MMA #### [facility] [address] [place] [address] Methylmalonic Acidon 018 Methylmalonic Acid 100 nmol/L Normal 79-376 [facility] Comment on above: Result Comment: This test was developed and its performance characteristics determined by [facility]'s Roque Heron [facility] [place] ([facility]). It has not been cleared or approved by the FDA. -[facility] is regulated under CLIA as qualified to perform high-complexity testing. This test is used for clinical purposes. It should not be regarded as investigational or for research. Performed By: #### W SR, TSH, HIV12C, B12, SERFOL, ANAIFS, MMA ####[facility] [place], [place] [phone] Platelet Aggr. Panelon 05-23 ADP 20 Max Aggreg 76 % Max Normal 70-100 [facility] Comment on above: Performed By: #### A GGPLP ####[place] [address] [address] [place], [place] [phone] ADP Max Aggreg 86 % Max Normal 70-100 [facility] Comment on above: Performed By: #### A GGPLP ####[address] [place], [place] [phone] Arach Max Aggreg 93 % Max Normal 66-100 [facility] Comment on above: Performed By: #### A GGPLP ####[address] [place] [phone] ATP Rel by ADP 0.3 nM Normal 0.2-1.6 [facility] Comment on above: Performed By: #### A GGPLP ####[address] [phone] ATP Rel by ADP 20 0.5 nM Normal 0.2-1.6 [facility] Comment on above: Performed By: #### A GGPLP ####[place] [phone] ATP Rel by Aracha 0.7 nM Normal 0-1.3 [facility] Comment on above: Performed By: #### A GGPLP ####[address] [place] [phone] ATP Rel by Collagen 0.4 nM Normal 0.4-1.9 [facility] Comment on above: Performed By: #### A GGPLP ####[place] [phone] ATP Rel by EPI 100 0.3 nM Normal 0.3-1.7 [facility] Comment on above: Performed By: #### A GGPLP ####[address] [place], [place] [phone] ATP Rel by Epineph 0.0 nM Low 0.3-1.7 [facility] Comment on above: Performed By: #### A GGPLP ####[address] [phone] Collagen Max Aggreg 79 % Max Normal 70-100 [facility] Comment on above: Performed By: #### A GGPLP ####[address] [phone] Epin 100 Max Aggreg 84 % Max Normal 67-95 [facility] Comment on above: Performed By: #### A GGPLP ####[address] [phone] Epin Max Aggreg 16 % Max Low 67-95 [facility] Comment on above: Performed By: #### A GGPLP ####[address] [phone] Plt Aggreg Interp (NOTE) Normal [facility] Comment on above: Result Comment: Perf orming Pathologist: Karina Carpenter Interpretation: Abnormal - see comment below. The platelet aggregation study is mildly abnormal. A laboratory study of platelet aggregation and stimulated granule release was performed. The whole blood platelet count is slightly decreased at 145 K/ul. The platelet aggregation study shows normal aggregation to all agonists, with the exception of 10 uM epinephrine (aggregation to 100uM epinephrine is normal). There is normal stimulated dense granule release to ADP, collagen, arachidonic acid and 100uM epinephrine, with a decreased reponse to 10uM epinephrine. The ristocetin induced platelet aggregation shows a normal dose response. SUMMARY: The aggregation study shows a limited abnormality to only epinephrine at one concentration (10uM), but is normal to all other agonists and to higher dose epinephrine (100uM). An isolated abnormality in only one concentration of one agonist is unlikely to represent an intrinsic platelet disorder or to be of clinical significance. Of note, an isolated defect in epinephrine aggregation may be seen in normal individuals. Performed By: #### A GGPLP ####[address] [phone] Risto 1200 Max Agg 81 % Max Normal 68-100 [facility] Comment on above: Performed By: #### A GGPLP ####[facility] [place], [place] [phone] Risto 1500 Max Agg 86 % Max Normal 75-100 [facility] Comment on above: Performed By: #### A GGPLP ####[facility] [place], [place] [phone] Risto 600 Max Agg 5 % Max Normal 0-26 [facility] Comment on above: Performed By: #### A GGPLP ####[facility] [place] [address] [phone] Risto 900 Max Agg 86 % Max Normal 0-90 [facility] Comment on above: Performed By: #### A GGPLP ####[address] [phone] Protimeon 05-23-2018 Prothrombin time (PT) Coag time (PPP) 9.3 s Low 9.7-13.0 [facility] Comment on above: Performed By: #### W SR, TSH, HIV12C, B12, SERFOL, ANAIFS, MMA #### [facility] [address] [place] [phone] Prothrombin time (PT) Coag time (PPP) s Low 0.9-1.3 [facility] Comment on above: Result Comment: Adriana min K Antagonist (VKA) Therapeutic Range: INR 2 to 3 (Target INR of 2.5) Note: For patients treated with VKA drugs, such as warfarin, the [place] [employer] 2012 Guideline recommends a therapeutic INR range of 2 to 3 (target INR of 2.5). This recommendation includes high-risk patients with antiphospholipid syndrome with previous arterial or venous thromboembolism, current-generation mechanical or bioprosthetic aortic heart valve replacement. Note: Patients with mechanical aortic valve replacement and additional risk factors for thromboembolic events (atrial fibrillation, previous thromboembolism, LV dysfunction, hypercoagulable conditions) or an older generation mechanical AVR (i.e., ball in-Cage) or any mechanical MVR should have a INR therapeutic range of 2.5 to 3.5 (target INR of 3). Chyna LIU, et al. Chest 2012, 141:7S-47S Gilberto RA, et al. [facility] 2017, 70: 252-289 Performed By: #### W SR, TSH, HIV12C, B12, SERFOL, ANAIFS, MMA #### [facility] [address] [place], [place] [address] Remote Abs Gran + CBC (for [facility] use only)on 05-23-2018 Absol Gran Count 2.03 k/uL Normal 1.45-7.50 [facility] Comment on above: Performed By: #### R AGCBC ####[place] [id number] [place] [phone] Absolute nRBC <0.01 Normal <0.01 [facility] Comment on above: Performed By: #### R AGCBC ####[facility] [place] [phone] Erythrocyte distribution width Ratio (RBC) 13.4 % Normal 11.5-15.0 [facility] Comment on above: Performed By: #### R AGCBC ####[facility] [place] [phone] Hematocrit Volume Fraction (Bld) 40.4 % Normal 36.0-46.0 [facility] Comment on above: Performed By: #### R AGCBC ####[place] [address] [place], [place] [phone] Hemoglobin mass conc (Bld) 13.6 g/dL Normal 11.5-15.5 [facility] Comment on above: Performed By: #### R AGCBC ####[facility] [place] [phone] MCH Entitic mass (RBC) 35.5 pG High 26.0-34.0 [facility] Comment on above: Performed By: #### R AGCBC ####[place] [address] [place], [place] [phone] MCHC mass conc (RBC) 33.7 g/dL Normal 30.5-36.0 [facility] Comment on above: Performed By: #### R AGCBC ####[place] [address], [place] [phone] MCV Entitic volume (RBC) 105.5 fL High 80.0-100.0 [facility] Comment on above: Performed By: #### R AGCBC ####[place] [address] [place], [place] [phone] Platelet mean volume Entitic volume (Bld) 9.7 fL Normal 9.0-12.7 [facility] Comment on above: Performed By: #### R AGCBC ####[place] [address] [place], [place] [phone] Platelets #/vol (Bld) 145 10*3/uL Low 150-400 [facility] Comment on above: Performed By: #### R AGCBC ####[place] [address] [place], [place] [phone] RBC #/vol (Bld) 3.83 10*6/uL Low 3.90-5.20 [facility] Comment on above: Performed By: #### R AGCBC ####[place] [address], [place] [phone] WBC #/vol (Bld) 3.89 10*3/uL Normal 3.70-11.00 [facility] Comment on above: Performed By: #### R AGCBC ####[place] [address] [place], [place] [phone] Sed Rate Westergrenon 2017 Sed Rate Westergren 12 mm/hr Normal 0-20 [facility] Comment on above: Performed By: #### W SR, TSH, HIV12C, B12, SERFOL, ANAIFS, MMA #### [facility] [address] [place] [phone] TSHon 05-23-2018 Thyrotropin Qn 2.160 uU/mL Normal 0.400-5.500 [facility] Comment on above: Result Comment: If t he patient is , TSH reference range varies by gestational period: First Trimester 0.100-2.500 uU/mL Second Trimester 0.200-3.000 uU/mL Third Trimester 0.300-3.000 uU/mL References: 1. Everett L, Angie M, Messi AGUILAR, et al. Management of Thyroid Dysfunction during and : An Endocrine Society Clinical Practice Guideline. J Clin Endocrinol Metab, 2012:97:8392-0049. 2. Patrick STONER. Overview of thyroid disease in . UpToDate. 2016. Accessed on November 22, 2015. Performed By: #### W SR, TSH, HIV12C, B12, SERFOL, ANAIFS, MMA #### [facility] [address] [place] [phone] Vitamin B12on 05-23-2018 Cobalamin (Vitamin B12) mass conc 588 pg/mL Normal 232-1245 [facility] Comment on above: Performed By: #### W SR, TSH, HIV12C, B12, SERFOL, ANAIFS, MMA ####[facility] [address] [place], [place] [phone] CNCOon 05-13-2018 CNCO Letter Text Dear Shantal Messina: How to activate your [facility] [employer] Account 1. Visit the [employer] Signup page at [email or web address] 2. Identify yourself using your one-time use activation code: [email or web address] 3. Follow the on-screen prompts to choose your own secure username and password The following information will be necessary to access your account for the first time: Information needed for sign-up: Your custom activation code used one-time only for the initial account set-up. Your date of The last 4 digits of your social security number What to do next: Fill in the requested information on the Identify Yourself Form at [email or web address] , click Next. Create your login and password, choose a [employer] ID and password that will be easy for you to use, but impossible for anyone else to guess. Pick a security question that will assist you in the event you forget your password the next time you log-on. If you have difficulty activating your account, please call our [employer] helpline at [phone] or toll free at . We hope you enjoy using [employer]! Kindest Regards, [facility] [employer] Team Normal [facility] CNOVSPon 05-13-2018 CNOVSP Visit (SP) Office ([place]) SIDDHARTHSHANTAL Renzo ([id number]) 1975 F Date Time Provider Department 05/13/18 8:30 AM JUSTSU BAILEY During your visit today, we recorded the following information about you: Temperature Pulse Respiration Blood pressure 98.7 degrees 76/minute 18/minute 128/89 Weight Height 70.2 kg 1.735 m Justus Bailey MD 05/13/2018 3:13 PM Signed HPI Shantal Renzo Messina is a 42 year old female who presents in consultation with easy bruising and some mild thrombocytopenia. She has noticed easy bruising in her lower extremities but denies purpura, petechiae or any evidence of mucosal bleeding. She is on Premarin. Her platelet count was noted to be 117 in April 2018. She has no family history of bleeding or clotting etc. PAST MEDICAL HISTORY Diagnosis Date - Thrombocytopenia (HCC) PAST SURGICAL HISTORY Procedure Laterality Date - HYSTERECTOMY HX Social History Substance Use Topics - Smoking status: Current Every Day Smoker Packs/day: 0.50 Types: Cigarettes - Smokeless tobacco: Never Used - Alcohol use Yes Comment: occ. FAMILY HISTORY Problem Relation Age of Onset - Hyperlipidemia Father - Hypertension Father - Alcohol/Drug Maternal Grandmother - Alcohol/Drug Paternal Grandmother - Bipolar disorder Paternal Grandmother - Diabetes Paternal Grandfather Current Outpatient Prescriptions: PREMARIN 0.9 mg tablet TAKE 1 TABLET BY MOUTH EVERYDAY AT BEDTIME No current facility-administered medications for this visit. ALLERGIES Allergen Reactions - Morphine Hives REVIEW OF SYSTEMS GENERAL: No weight loss, malaise or fevers., SEE HPI HEENT: Negative for frequent or significant headaches, No changes in hearing or vision, no nose bleeds or other nasal problems NECK: Negative for lumps, goiter, pain and significant neck swelling RESPIRATORY: Negative for cough, wheezing or shortness of breath. CARDIOVASCULAR: Negative for chest pain, leg swelling or palpitations. GI: Negative for abdominal discomfort, blood in stools or black stools or change in bowel habits MUSCULOSKELETAL: Negative for joint pain or swelling, back pain or muscle pain. SKIN: Negative for lesions, rash, and itching. PSYCH: Negative for sleep disturbance, mood disorder and recent psychosocial stressors. HEMATOLOGY/LYMPHOLOGY: Negative for prolonged bleeding, bruising easily or swollen nodes. NEURO: No history of headaches, syncope, paralysis, seizures or tremors All other reviewed and negative other than HPI. PHYSICAL EXAM: BP 128/89 Pulse 76 Temp 37.1 ?C (98.7 ?F) (Oral) Resp 18 Ht 173.5 cm (5' 8.31 ) Wt 70.2 kg (154 lb 12.8 oz) SpO2 97% BMI 23.33 kg/m? General Appearance: alert and oriented, appearing in no acute distress Skin: skin color, texture, turgor normal, no suspicious rashes or lesions. Head: normal. Eyes: Anicteric sclera. Pupils are equally round. Extraocular movements are intact. . Ears: external ears normal Neck: no nodes. Back:no pain with ambulation Lungs: good air exchange overall Heart: RRR Abdomen: No splenomegaly Extremities: Extremities normal. No deformities, edema, or skin discoloration. Good capillary refill.. Musculoskeletal: Spine range of motion normal. Muscular strength intact. Peripheral Pulses: Normal. Neurologic: Gait normal. No gross cerebellar defects Psychiatric: the patient has an appropriate affect No results found for: HB, HCT, WBC, PLT ASSESSMENT/PLAN: 1. Thrombocytopenia (HCC) - ICD9: 287.5, ICD10: D69.6 (primary diagnosis) I reviewed at length the differential diagnosis and options including chronic low-grade ITP, platelet clumping/fictitious thrombocytopenia, medication effect, and others. She does not have any mucosal bleeding, petechiae or purpura. In many women this ends up being a more vascular phenomenon than anything. I will check some coags, as well as a platelet aggregation panel and other assays. I've given her reassurance that there is likely nothing wrong with her but I would like to see her back to review her results. - PREMARIN 0.9 MG TABLET - ABS GRAN CT + CBC (FOR REMOTE [facility] USE) - PROTHROMBIN TIME/PT - ACTIVATED PTT - PLATELET AGGREGATION PANEL - VITAMIN B12 BLOOD - METHYLMALONIC ACID - FOLATE SERUM - TSH BLD - HEPATIC FUNCTION PNL - BASIC METABOLIC PNL - HIV 1,2 COMBO (AG/AB) - SED RATE WESTERGREN - KAUSHIK BY IFA SCREEN 2. S/P PHILLY-BSO - ICD9: V88.01, V45.77, ICD10: Z90.710, Z90.722, Z90.79 See above - PREMARIN 0.9 MG TABLET - ABS GRAN CT + CBC (FOR REMOTE [facility] USE) - PROTHROMBIN TIME/PT - ACTIVATED PTT - PLATELET AGGREGATION PANEL - VITAMIN B12 BLOOD - METHYLMALONIC ACID - FOLATE SERUM - TSH BLD - HEPATIC FUNCTION PNL - BASIC METABOLIC PNL - HIV 1,2 COMBO (AG/AB) - SED RATE WESTERGREN - KAUSHIK BY IFA SCREEN 3. Abnormal weight loss - ICD9: 783.21, ICD10: R63.4 See above - PREMARIN 0.9 MG TABLET - ABS GRAN CT + CBC (FOR REMOTE [facility] USE) - PROTHROMBIN TIME/PT - ACTIVATED PTT - PLATELET AGGREGATION PANEL - VITAMIN B12 BLOOD - METHYLMALONIC ACID - FOLATE SERUM - TSH BLD - HEPATIC FUNCTION PNL - BASIC METABOLIC PNL - HIV 1,2 COMBO (AG/AB) - SED RATE WESTERGREN - KAUSHIK BY IFA SCREEN Justus Bailey MD Referring Provider: FADUMO SEO [[id number]] Allergies As of Date: 05/13/2018 Noted Allergy Reaction MORPHINE 05/10/2018 4 - Hives Date Reviewed: 05/13/2018 Reviewed by: Mela Alfaro - Fully Assessed Reason for Visit: Thrombocytopenia [603] Cmt: New patient consultation Primary Visit Diagnosis:Thrombocytop enia (HCC) [D69.6] Other Visit Diagnoses:S/P PHILLY-BSO [Z90.710, Z90.722, Z90.79] Abnormal weight loss [R63.4] Order(s):ABS GRAN CT + CBC (FOR REMOTE [facility] USE) [SQRAGCBC] Order #: [id number] FUTURE PROTHROMBIN TIME/PT [SQPT] Order #: [id number] FUTURE ACTIVATED PTT [SQPTT] Order #: [id number] FUTURE PLATELET AGGREGATION PANEL [SQAGGPLP] Order #: [id number] FUTURE VITAMIN B12 BLOOD [SQB12] Order #: [id number] FUTURE METHYLMALONIC ACID [SQMMA] Order #: [id number] FUTURE FOLATE SERUM [SQSERFOL] Order #: [id number] FUTURE TSH BLD [SQTSH] Order #: [id number] FUTURE HEPATIC FUNCTION PNL [SQHFP] Order #: [id number] FUTURE BASIC METABOLIC PNL [SQBMP] Order #: [id number] FUTURE HIV 1,2 COMBO (AG/AB) [SQHIV12] Order #: [id number] FUTURE SED RATE WESTERGREN [SQWSR] Order #: [id number] FUTURE KAUSHIK BY IFA SCREEN [SQANAIFS] Order #: [id number] FUTURE Disposition: Return in about 4 weeks (around 06/10/2018). Follow-up and Disposition History Recorded Prescriptions as of 05/13/2018 Sig: PREMARIN 0.9 MG TABLET TAKE 1 TABLET BY MOUTH EVERYD* Problem List As Of Date 05/13/2018 Noted Resolved Thrombocytopenia (HCC) [D69.6] INVALID FOR* S/P PHILLY-BSO [Z90.710, Z90.722, Z90.79] INVALID FOR* Abnormal weight loss [R63.4] INVALID FOR* Encounter Status:Closed by JUSTUS BAILEY MD on 05/13/18 Normal [facility] PROGRESSon 05-13-2018 Protein mass conc HNO ID: [id number] Author: Justus Bailey Service: (none) Author Type: Physician Type: Progress Notes Filed: 05/13/2018 3:13 PM Note Text: HPI Shantal Messina is a 42 year old female who presents in consultation with easy bruising and some mild thrombocytopenia. She has noticed easy bruising in her lower extremities but denies purpura, petechiae or any evidence of mucosal bleeding. She is on Premarin. Her platelet count was noted to be 117 in April 2018. She has no family history of bleeding or clotting etc. PAST MEDICAL HISTORY Diagnosis Date - Thrombocytopenia (HCC) PAST SURGICAL HISTORY Procedure Laterality Date - HYSTERECTOMY HX Social History Substance Use Topics - Smoking status: Current Every Day Smoker Packs/day: 0.50 Types: Cigarettes - Smokeless tobacco: Never Used - Alcohol use Yes Comment: occ. FAMILY HISTORY Problem Relation Age of Onset - Hyperlipidemia Father - Hypertension Father - Alcohol/Drug Maternal Grandmother - Alcohol/Drug Paternal Grandmother - Bipolar disorder Paternal Grandmother - Diabetes Paternal Grandfather Current Outpatient Prescriptions: PREMARIN 0.9 mg tablet TAKE 1 TABLET BY MOUTH EVERYDAY AT BEDTIME No current facility-administered medications for this visit. ALLERGIES Allergen Reactions - Morphine Hives REVIEW OF SYSTEMS GENERAL: No weight loss, malaise or fevers., SEE HPI HEENT: Negative for frequent or significant headaches, No changes in hearing or vision, no nose bleeds or other nasal problems NECK: Negative for lumps, goiter, pain and significant neck swelling RESPIRATORY: Negative for cough, wheezing or shortness of breath. CARDIOVASCULAR: Negative for chest pain, leg swelling or palpitations. GI: Negative for abdominal discomfort, blood in stools or black stools or change in bowel habits MUSCULOSKELETAL: Negative for joint pain or swelling, back pain or muscle pain. SKIN: Negative for lesions, rash, and itching. PSYCH: Negative for sleep disturbance, mood disorder and recent psychosocial stressors. HEMATOLOGY/LYMPHOLOGY: Negative for prolonged bleeding, bruising easily or swollen nodes. NEURO: No history of headaches, syncope, paralysis, seizures or tremors All other reviewed and negative other than HPI. PHYSICAL EXAM: BP 128/89 Pulse 76 Temp 37.1 ?C (98.7 ?F) (Oral) Resp 18 Ht 173.5 cm (5' 8.31 ) Wt 70.2 kg (154 lb 12.8 oz) SpO2 97% BMI 23.33 kg/m? General Appearance: alert and oriented, appearing in no acute distress Skin: skin color, texture, turgor normal, no suspicious rashes or lesions. Head: normal. Eyes: Anicteric sclera. Pupils are equally round. Extraocular movements are intact. . Ears: external ears normal Neck: no nodes. Back:no pain with ambulation Lungs: good air exchange overall Heart: RRR Abdomen: No splenomegaly Extremities: Extremities normal. No deformities, edema, or skin discoloration. Good capillary refill.. Musculoskeletal: Spine range of motion normal. Muscular strength intact. Peripheral Pulses: Normal. Neurologic: Gait normal. No gross cerebellar defects Psychiatric: the patient has an appropriate affect No results found for: HB, HCT, WBC, PLT ASSESSMENT/PLAN: 1. Thrombocytopenia (HCC) - ICD9: 287.5, ICD10: D69.6 (primary diagnosis) I reviewed at length the differential diagnosis and options including chronic low-grade ITP, platelet clumping/fictitious thrombocytopenia, medication effect, and others. She does not have any mucosal bleeding, petechiae or purpura. In many women this ends up being a more vascular phenomenon than anything. I will check some coags, as well as a platelet aggregation panel and other assays. I've given her reassurance that there is likely nothing wrong with her but I would like to see her back to review her results. - PREMARIN 0.9 MG TABLET - ABS GRAN CT + CBC (FOR REMOTE [facility] USE) - PROTHROMBIN TIME/PT - ACTIVATED PTT - PLATELET AGGREGATION PANEL - VITAMIN B12 BLOOD - METHYLMALONIC ACID - FOLATE SERUM - TSH BLD - HEPATIC FUNCTION PNL - BASIC METABOLIC PNL - HIV 1,2 COMBO (AG/AB) - SED RATE WESTERGREN - KAUSHIK BY IFA SCREEN 2. S/P PHILLY-BSO - ICD9: V88.01, V45.77, ICD10: Z90.710, Z90.722, Z90.79 See above - PREMARIN 0.9 MG TABLET - ABS GRAN CT + CBC (FOR REMOTE [facility] USE) - PROTHROMBIN TIME/PT - ACTIVATED PTT - PLATELET AGGREGATION PANEL - VITAMIN B12 BLOOD - METHYLMALONIC ACID - FOLATE SERUM - TSH BLD - HEPATIC FUNCTION PNL - BASIC METABOLIC PNL - HIV 1,2 COMBO (AG/AB) - SED RATE WESTERGREN - KAUSHIK BY IFA SCREEN 3. Abnormal weight loss - ICD9: 783.21, ICD10: R63.4 See above - PREMARIN 0.9 MG TABLET - ABS GRAN CT + CBC (FOR REMOTE [facility] USE) - PROTHROMBIN TIME/PT - ACTIVATED PTT - PLATELET AGGREGATION PANEL - VITAMIN B12 BLOOD - METHYLMALONIC ACID - FOLATE SERUM - TSH BLD - HEPATIC FUNCTION PNL - BASIC METABOLIC PNL - HIV 1,2 COMBO (AG/AB) - SED RATE WESTERGREN - KAUSHIK BY IFA SCREEN Justus Bailey MD Normal [facility] Vital Signs Date Time Vital Sign Value Performing Clinician Faci lity 10-14-2023 13:45-0400 Body height 172.72 cm [facility] 10-14-2023 13:45-0400 Body mass index (BMI) [Ratio] 20.5 kg/m2 [facility] 10-14-2023 13:45-0400 Body weight 61.23 kg [facility] 10-14-2023 13:45-0400 Diastolic blood pressure 85 mm[Hg] [facility] 10-14-2023 13:45-0400 Heart rate 83 /min [facility] 10-14-2023 13:45-0400 Systolic blood pressure 133 mm[Hg] [facility] 10-01-2023 10:40-0400 Body height 172.72 cm [facility] 10-01-2023 10:40-0400 Body mass index (BMI) [Ratio] 22 kg/m2 [facility] 10-01-2023 10:40-0400 Body weight 65.77 kg [facility] 10-01-2023 10:40-0400 Diastolic blood pressure 87 mm[Hg] [facility] 10-01-2023 10:40-0400 Heart rate 81 /min [facility] 10-01-2023 10:40-0400 Systolic blood pressure 135 mm[Hg] [facility] Encounters Encounter Date Encounter Type Care Provider Facility Start: 01-24-2024 End: 01-24-2024 ambulatory [facility] Not Available Start: 10-14-2023 End: 10-14-[address] [facility] Work Phone: Start: 10-14-2023 End: 10-14-2023 Patient encounter procedure [facility] Physician [facility] Work Phone: Start: 10-01-2023 End: 10-01-[address] [facility] Work Phone: Start: 10-01-2023 End: 10-01-2023 Patient encounter procedure [facility] Physician [facility] Work Phone: Start: 03-25-2020 End: 03-25-2020 Patient encounter procedure [facility] Facility: Start: 06-10-2018 End: 08-02-2018 [facility] Start: 05-23-2018 End: 05-24-2018 Patient encounter procedure JUSTUS BAILEY [facility] Start: 05-13-2018 End: 05-16-2018 Patient encounter procedure JUST[facility] Heriberto [facility] Payers Date Payer Category Payer Unknown [id number] 1975 Unknown [id number] 1957 Unknown [id number] Social History Date Type Detail Facility Start: 09-30-2023 Tobacco smoking stat [facility] Smoker (finding) [facility] Start: 1975 Sex Assigned At Female F [facility] Evaluation note Note Date & Type Note Facility Evaluation note No assessment information availa [facility] Work Phone: Evaluation note Note Date & Type Note Facility Evaluation note Diagnosis Onset Date Contact dermatitis acute Contact dermatitis acute [facility] Work Phone: Summary Purpose Family History No Family History Records Found Relationship Condition Age at Onset Recorded Date/T alessandra father Prediabetes Unknown Not Specified Asthma Unknown Advance Directives No Advanced Directives Records Found Advance Directive Response Recorded Date/ Time Advance Directives No September 29, 024 2:38pm Chief Complaint and Reason for Visit Chief Complaint reaction to paint Chief Complaint reaction to paint Rash Reason for Visit Contact dermatitis Contact dermatitis Additional Source Comments INFORMATION SOURCE (unrecogn ized section and content) DATE CREATED AUTHOR 08/02/2018 [facility] DATE CREATED AUTHOR AUTHOR'S ORGANIZ ATION [facility] DATE CREATED AUTHOR AUTHOR'S ORGANIZ ATION 01/25/2024 [facility] [employer] Care Teams (unrecognized sec tion and content) Team Status: Active Member Role Status Dates Antonia Torres MD Primary Care Provider Active Team Status: Inactive Member Role Status Dates Antonia Torres MD Primary Care Provide r, Attending Provider Active Start: October 01, 2023 End: October 01, 2023 Team Status: Inactive Member Role Status Dates Antonia Torres MD Primary Care Provide r, Attending Provider Active Start: October 14, 2023 End: October 14, 2023 Goals (unrecognized section and content) Goals may be documented in a n alternate sectionGoals may be documented in an alternate section FOR RECORDS PERTAINING TO PATIENTS WHO ARE OR HAVE BEEN ENROLLED IN A CHEMICAL DEPENDENCY/SUBSTANCEABUSE PROGRAM, SOME INFORMATION MAY BE OMITTED. This clinical summary was aggregated from multiple sources. Caution should be exercised in using it in the provision of clinical care. This summary normalizes information from multiple sources, and as a consequence, information in this document may materially change the coding, format and clinical context of patient data. In addition, data may be omitted in some cases. CLINICAL DECISIONS SHOULD BE BASED ON THE PRIMARY CLINICAL RECORDS. [facility] [employer]. provides no warranty or guarantee of the accuracy or completeness of information in this document.
== END 2024-03-09 13:50 | disposition home or self-care (01) ==
LOC: RAD 13:53
PROVIDERS: PCP Family Medicine; Visit Provider Family Medicine
DX: M54.12 Radiculopathy, cervical region (principal)
CPT/HCPCS: 72050

== ENCOUNTER 2025-01-29 20:20 | Outpatient (REF) | payer BC, SELFPAY ==
--- OUTSIDE RECORDS SUMMARY | 2025-01-29 20:23 | XMS_ITS | CCD ---
Author Organization [facility] Care Team Providers Care Pediatric Care Coordinator Name Role Phone JUSTUS BAILEY Attending Unavailable FADUMO FULLER Referring Unavailable ANTONIA TORRES Referring Unavailable JUSTUS BAILEY Referring Unavailable ANTONIA TORRES Referring Unavailable DELORIS DEWITT ([facility]) Referring UnavailJUSTUS Hearn Attending Unavailable ANTONIA TORRES Referring Unavailable FADUMO FULLER Admitting Unavailable FADUMO FULLER Attending Unavailable FADUMO FULLER Consulting Unavailable FADUMO FULLER Attending Unavailable Wilner ARRIETA, Antonia Primary Care Provider Antonia Torres MD Primary Care Provider [phone] Allergies Allergy Classification Reported Allergen(s) Allergy Type Date of Onset Reaction(s) Facility (6 sources) Morphine; Translations: [MORPHINE] Drug Allergy 05-10-2018 Jax Medrano [facility] Repository Medications Current Medications Medication Drug Class(es) Dates Sig (Normalized) Sig (Original) estrogens, conjugated (senior care) 0.9 mg oral tablet (8 sources) Estrogen Start: 08-21-2024 take 1 tablet by mouth once daily at bedtime Premarin 0.9 MG tablet Indications: Postmenopausal HRT (hormone replacement therapy) TAKE 1 TABLET BY MOUTH EVERYDAY AT BEDTIME 30 tablet 5 08/21/2024 Active Start: 10-01-2023 take 1 tablet by roshni th once daily Conjugated Estrogens (Premarin) 0.3 mg tablet Active 0.3 MG PO Daily October 01, 2023 12:00am cyclically Start: 07-13-2023 take 1 tablet by roshni th at bedtime estrogens, conjugated, (Premarin) 0.9 MG tablet Indications: Postmenopausal HRT (hormone replacement therapy) Take 1 tablet (0.9 mg) by mouth at bedtime 30 tablet 5 07/13/2023 Active Methylprednisolone (4 sources) Corticosteroid Start: 03-09-2024 Methylpredniso lone Active 0 PO per package directions March 09, 2024 1:35pm PO PER PKG DIR for 6 days Start: 10-01-2023 End: 03-09-2024 Methylprednisolone Discontin ued 0 PO per package directions October 01, 2023 12:00am March 09, 2024 1:18pm PO PER PKG DIR for 6 days Start: 10-01-2023 Methylpredniso lone Active 0 PO per package directions October 01, 2023 12:00am PO PER PKG DIR for 6 days Completed/Discontinued Medications Medication Drug Class(es) Dates Sig (Normalized) Sig (Original) baclofen 10 mg oral tablet (3 sources) gamma-Aminobutyric Acid-ergic Agonist Start: 10-01-2023 End: 10-01-2023 take 10 mg by mouth once daily Baclofen Discontinued 10 MG PO Daily October 01, 2023 12:00am October 01, 2023 10:43am fluticasone propionate 0.05 mg/actuat metered dose nasal spray (3 sources) Corticosteroid Start: 10-01-2023 End: 10-01-2023 take 1 spray(s) nasal route once daily Fluticasone Propionate Discontinued 1 SPRAY INTRANASAL Daily October 01, 2023 12:00am October 01, 2023 11:06am [employer] spray in each nostril Nasally Once a day; Note: Source Status: Start; Provider: Janice Muller gabapentin 100 mg oral capsule (6 sources) Anti-epileptic Agent Start: 12-16-2022 End: 01-24-2024 take 1 capsule by mouth twice daily in the morning, then take 2 capsules by mouth in the evening Gabapentin Discontinued 100 MG PO Twice daily October 01, 2023 12:00am October 01, 2023 11:06am FreeText[employer]: TAKE 1 CAPSULE BY MOUTH IN THE MORNING AND 2 CAPSULES IN THE EVENING; Note: Source Status: Start; Refills: 3; Qty: 90 Capsule; Provider: Wilner Knight ( ) triamcinolone acetonide 1 mg/ml topical cream (3 sources) Corticosteroid Start: 10-01-2023 End: 03-09-2024 Triamcinolone Acetonide Discontinued 1 APPLIC TOPICAL Daily October 01, 2023 12:00am March 09, 2024 1:18pm Problems Active Problems Problem Classification Problem Date Documented Date Episodic/Chronic Allergic reactions (4 sources) Contact dermatitis; Translations: [Unspecified contact dermatitis, [...] Translations: [Abnormal weight loss] Onset: 05-13-2018 Episodic Residual codes; unclassified (1 [...] of other genital organ(s)] Onset: 05-13-2018 Episodic Spondylosis; intervertebral disc disorders; other back problems (2 sources) Cervical nerve root pain; Translations: [Radiculopathy, cervical region] 03-09-2024 Episodic Past or Other Problems Problem Classification Problem Date Documented Da te Episodic/Chronic Other ear and sense organ disorders (5 sources) Bilateral tinnitus; Translations: [Tinnitus, bilateral] Onset: 01-12-2023 01-12-2023 Episodic Other screening for suspected conditions (not mental disorders or infectious disease) (8 sources) Encounter for screening for malignant neoplasm of cervix; Translations: [Patient encounter status] Onset: 03-25-2020 01-24-2024 Episodic Results Test Name Value Interpretation Reference Range Facility IGP,APTIMA HPV,AGE GDLNon AGE GDLN ACOG TESTING Note . [facility] Comment on above: TESTS RESULT FLAG UN ITS REF RANGE LAB Clinician Provided Cytology Information Source.............Vagina No. of containers..01 ThinPrep Vial Age Latoya BENITO Ria... 32 FLAG LEGEND: L-Low Normal,H-High Normal,LL-Alert Low,HH-Alert High <-Panic Low,>-Panic High,A-Abnormal,AA-Critical Abnormal Performed at: 01 =[address] [address] Sheron Solares MD, HPV APTIMA Negative Negative [facility] Comment on above: This nucleic acid am plification test detects fourteen high- risk HPV types (16,18,31,33,35,39,45,51,52,56,58,59,66,68) without differentiation. Performed at: =[address] [id number] Escalator Mechanic: Sherno Solares MD, Phone: [phone] Performed at: - [address] [id number] Escalator Mechanic: Sheron Solares MD, Phone: [phone] IGP, APTIMA HPV, RFX 16/18,45 Note . [facility] Comment on above: TESTS RESULT FLAG UN ITS REF RANGE LAB DIAGNOSIS: 02 NEGATIVE FOR INTRAEPITHELIAL LESION OR MALIGNANCY. Specimen adequacy: 02 Satisfactory for evaluation. No endocervical cells are present. This is consistent with a history of hysterectomy. Performed by: 02 Felice Crow, Loss Control Engineer ([facility]) . 02 Note: Note 02 The Pap smear is a screening test designed to aid in the detection of premalignant and malignant conditions of the uterine cervix. It is not a diagnostic procedure and should not be used as the sole means of detecting cervical cancer. Both false-positive and false-negative reports do occur. Test Methodology: Note 02 This liquid based ThinPrep(R) pap test was screened with the use of an image guided system. HPV Genotype Reflex Note 02 Criteria not met, HPV Genotype not performed. FLAG LEGEND: L-Low Normal,H-High Normal,LL-Alert Low,HH-Alert High <-Panic Low,>-Panic High,A-Abnormal,AA-Critical Abnormal Performed at: 02 WB [facility] [address] [address] Sherno Solares MD, SPATULA-ALONE VAGINA [facility] PAP ACOG PANEL 2: 30 to 65on 04-01-2020 Age Gdln ACOG Testing 30-65 Normal [facility] Comment on above: Performed By: #### 4 [id number] #### [facility] [address], [place] [address] Eusebio Whittaker DIAGNOSIS: Comment Normal [facility] Comment on above: Result Comment: NEGA TIVE FOR INTRAEPITHELIAL LESION OR MALIGNANCY. THIS SPECIMEN WAS RESCREENED PART OF OUR CLINICAL DATA ASSOCIATE PROGRAM. Performed at: WB Performed By: #### 4 [id number] #### [facility] [address] [place] [address] Eusebio Whittaker HPV Aptima Negative Normal Negative [facility] Comment on above: Result Comment: This test was developed and its performance characteristics determined by [facility]. It has not been cleared or approved by the Food and Drug Administration. This nucleic acid amplification test detects fourteen high-risk HPV types (16,18,31,33,35,39,45,51,52,56,58,59,66,68) without differentiation. Performed at: =G Performed By: #### 4 [id number] #### [facility] [address] [place] [address] Eusebio Whittaker Methodology: Comment Normal [facility] Comment on above: Result Comment: This liquid based SurePath(R) pap test was screened with the assistance of an image guided system. Performed at: WB Performed By: #### 4 [id number] #### [facility] [address] [place] [address] Eusebio Whittaker Note: Comment Normal [facility] Comment on above: Result Comment: The Pap smear is a screening test designed to aid in the detection of premalignant and malignant conditions of the uterine cervix. It is not a diagnostic procedure and should not be used as the sole means of detecting cervical cancer. Both false-positive and false-negative reports do occur. . Performed at: WB Performed By: #### 4 [id number] #### [facility] [address] [place] [address] Eusebio Whittaker Performed by: Comment Normal [facility] Comment on above: Result Comment: Juan Diego Bhagat, Loss Control Engineer (ASCP) Performed at: WB Performed By: #### 4 [id number] #### [facility] [address] [place] [address] Eusebio Whittaker QC reviewed by: Comment Normal [facility] Comment on above: Result Comment: Tiny Rutledge, Supervisory Loss Control Engineer (ASCP) Performed at: WB Performed By: #### 4 [id number] #### [facility] [address] [place] [address] Eusebio Whittaker Specimen adequacy: Comment Normal [facility] Comment on above: Result Comment: Sati sfactory for evaluation. No endocervical cells are present. This is consistent with a history of hysterectomy. Performed at: WB Performed By: #### 4 [id number] #### [facility] [address] [place], [place] [address] Eusebio Whittaker . . Normal [facility] Comment on above: Result Comment: Perf ormed at: WB Performed By: #### 4 [id number] #### [facility] [address] [place] [id number] Eusebio Whittaker CNOVSPon 06-10-2018 CNOVSP Visit (SP) Office ([place]) SHANTAL MESSINA ([id number]) 1975 F Date Time Provider Department 06/10/18 10:45 AM JUSTUS BAILEY During your visit today, we recorded the following information about you: Temperature Pulse Respiration Blood pressure 98.5 degrees 84/minute 18/minute 128/78 Weight Height 71 kg 1.735 m Justus Bailey MD 06/10/2018 12:45 PM Signed HPI Shantal Renzo Messina is [...] of bleeding or clotting etc. Shantal Messina ([id number]) Female [address] + CBC ? ? (FOR [facility]) Order: [id number] Status: Final result ??Visible to patient: No [...] Other Results from 05/23/2018 PROTHROMBIN TIME/PT Order: [id number] Status: Final result ??Visible to patient: No [...] with VKA drugs, such as warfarin, the [place] [employer] 2012 Guideline recommends [...] Chest 2012, 141:7S-47S Gilberto RA, et al. [facility] 2017, 70: 252-289 Resulting Agency [facility] Specimen Collected: 05/23/18 10:55 AM Last Resulted: 05/23/18 11:36 AM Lab Flowsheet Order Details View Encounter Lab and Collection Details Routing Result History ACTIVATED PTT Order: [id number] Status: Final result ??Visible to patient: No [...] laboratory APTT reagent in use throughout the [facility]. Resulting Agency [facility] Specimen Collected: 05/23/18 10:55 AM Last Resulted: 05/23/18 11:36 AM Lab Flowsheet Order Details View Encounter Lab and Collection Details Routing Result History PLATELET AGGREGATION PANEL Order: [id number] Status: Final result ??Visible to patient: No [...] Routing Result History VITAMIN B12 BLOOD Order: [id number] Status: Final result ??Visible to patient: No [...] Details Routing Result History METHYLMALONIC ACID Order: [id number] Status: Final result ??Visible to patient: No (Not Released) Next appt: 01/12/2019 at 03:45 PM in Hem (Justus Bailey MD) Dx: Thrombocytopenia (HCC); Abnormal weig... Ref Range AND Units 2wk ago MMA 79 - 376 nmol/L 100 Comment: This test was developed and its performance characteristics determined by [facility]'s [facility]iatric Pathology [facility] [place] ([facility] It has not been cleared or approved by the FDA. [facility] is regulated under CLIA as qualified to perform high-complexity testing. This test is used for clinical purposes. It should not be regarded as investigational or for research. Resulting Agency [facility] Specimen Collected: 05/23/18 10:55 AM Last Resulted: 05/25/18 ?8:47 AM Lab Flowsheet Order Details View Encounter Lab and Collection Details Routing Result History FOLATE SERUM Order: [id number] Status: Final result ??Visible to patient: No [...] Details Routing Result History TSH BLD Order: [id number] Status: Final result ??Visible to patient: No [...] Clinical Practice Guideline. J Clin Endocrinol Metab, 2012:97:3082-3711. 2. Patrick STONER. Overview of thyroid disease in . UpToDate. 2016. Accessed on ?November 22, 2015. Resulting Agency [facility] Specimen Collected: 05/23/18 10:55 AM Last Resulted: 05/23/18 ?5:59 PM Lab Flowsheet Order Details View Encounter Lab and Collection Details Routing Result History HEPATIC FUNCTION PNL Order: [id number] Status: Final result ??Visible to patient: No [...] Routing Result History BASIC METABOLIC PNL Order: [id number] Status: Final result ??Visible to patient: No (Not Released) Next appt: 01/12/2019 at 03:45 PM in [facility] (Justus Bailey MD) Dx: Thrombocytopenia (HCC); Abnormal weig... Ref Range AND Units 2wk ago Glucose 74 - 99 mg/dL 86 Comment: The [place] [employer] (ADA) provides guidance for cutoff [...] Standards of Medical Care in Diabetes 2016, [place] [employer]. Diabetes Care. 2016.39(Suppl 1). BUN [...] Result History HIV 1,2 COMBO (AG/AB) Order: [id number] Status: Final result ??Visible to patient: No (Not Released) Next appt: 01/12/2019 at 03:45 PM in [facility] (Justus Bailey MD) Dx: Thrombocytopenia (HCC); Abnormal weig... Ref Range AND Units 2wk ago HIV 12 Combo (Ag/Ab) Non Reactive Non Reactive Comment: (NOTE) HIV Information: ?[place] Rev. Code 3701.243(E): This information has been [...] Routing Result History SED RATE WESTERGREN Order: [id number] Status: Final result ??Visible to patient: No [...] Result History KAUSHIK BY IFA SCREEN Order: [id number] Status: Final result ??Visible to patient: No [...] BLOOD Collected: 05/23/2018 10:56 AM Resulting Agency: [facility] Result Information Flag: Abnormal Status: Final result (Resulted: 05/23/2018 ?2:56 PM) Provider Status: Reviewed Patient Release Status: This result is not viewable by the patient. Routing History Priority Sent On From To Message Type 05/23/2018 11:37 AM , Lab Randall Garettangeli In Justus Bailey Results View [email or web address] Info ABS GRAN CT + CBC ? ? (FOR [facility] USE) (Order #[id number]) on 05/23/18 Order Report Order Details Current [...] ABS GRAN CT + CBC ([facility] USE) Justus Bailey MD Referring Provider: ANTONIA TORRES [[id number]] Allergies As of Date: 06/10/2018 Noted Allergy Reaction MORPHINE 05/10/2018 4 - Hives Date Reviewed: 06/10/2018 Reviewed by: Mela Alfaro - Fully Assessed Reason for Visit: Thrombocytopenia [603] Cmt: 4 week follow up Primary Visit Diagnosis:Thrombocytop enia (HCC) [D69.6] Order(s):VON WILLEBRAND DX PANEL [SQVWFPN] Order #: [id number] FUTURE ABS GRAN CT + CBC (FOR [facility] USE) [SQRAGCBC] Order #: [id number] FUTURE Disposition: Return in about 8 months [...] by JUSTUS BAILEY MD on 06/10/18 Normal [facility] PROGRESSon 06-10-2018 Protein mass conc HNO ID: [id number] Author: Justus Bailey Service: (none) Author Type: [...] of bleeding or clotting etc. Shantal Messina ([id number]) Female [address] + CBC ? ? ([facility]) Order: [id number] Status: Final result ??Visible to patient: No [...] Other Results from 05/23/2018 PROTHROMBIN TIME/PT Order: [id number] Status: Final result ??Visible to patient: No [...] with VKA drugs, such as warfarin, the [place] [employer] 2012 Guideline recommends [...] Chest 2012, 141:7S-47S Gilberto RA, et al. [facility] 2017, 70: 252-289 Resulting Agency [facility] Specimen Collected: 05/23/18 10:55 AM Last Resulted: 05/23/18 11:36 AM Lab Flowsheet Order Details View Encounter Lab and Collection Details Routing Result History ACTIVATED PTT Order: [id number] Status: Final result ??Visible to patient: No [...] laboratory APTT reagent in use throughout the [facility]. Resulting Agency [facility] Specimen Collected: 05/23/18 10:55 AM Last Resulted: 05/23/18 11:36 AM Lab Flowsheet Order Details View Encounter Lab and Collection Details Routing Result History PLATELET AGGREGATION PANEL Order: [id number] Status: Final result ??Visible to patient: No [...] be seen in normal individuals. Resulting Agency [facility] Specimen Collected: 05/23/18 10:55 AM Last Resulted: 05/24/18 ?5:40 PM Lab Flowsheet Order Details View Encounter Lab and Collection Details Routing Result History VITAMIN B12 BLOOD Order: [id number] Status: Final result ??Visible to patient: No (Not Released) Next appt: 01/12/2019 at 03:45 PM in Hem (Justus Bailey MD) Dx: Thrombocytopenia (HCC); Abnormal weig... Ref Range AND Units 2wk ago Vitamin B12 232 - 1,245 pg/mL 588 Resulting Agency [facility] Specimen Collected: 05/23/18 10:55 AM Last Resulted: 05/23/18 ?8:40 PM Lab Flowsheet Order Details View Encounter Lab and Collection Details Routing Result History METHYLMALONIC ACID Order: [id number] Status: Final result ??Visible to patient: No (Not Released) Next appt: 01/12/2019 at 03:45 PM in Hem (Justus Bailey MD) Dx: Thrombocytopenia (HCC); Abnormal weig... Ref Range AND Units 2wk ago MMA 79 - 376 nmol/L 100 Comment: This test was developed and its performance characteristics determined by [facility]'s [facility] Pathology and [facility] [place] ([facility]). It has not been cleared or approved by the FDA. [facility] is regulated under CLIA as qualified to perform high-complexity testing. This test is used for clinical purposes. It should not be regarded as investigational or for research. Resulting Agency [facility] Specimen Collected: 05/23/18 10:55 AM Last Resulted: 05/25/18 ?8:47 AM Lab Flowsheet Order Details View Encounter Lab and Collection Details Routing Result History FOLATE SERUM Order: [id number] Status: Final result ??Visible to patient: No [...] Details Routing Result History TSH BLD Order: [id number] Status: Final result ??Visible to patient: No [...] Third Trimester ? ?0.300-3.000 uU/mL References: 1. De Ira L, Angie M, Messi EK, et al. Management of Thyroid Dysfunction during and : An Endocrine Society Clinical Practice Guideline. J Clin Endocrinol Metab, 2012:97:2060-0053. 2. Patrick STONER. Overview of thyroid disease in . UpToDate. 2016. Accessed on ?November 22, 2015. Resulting Agency [facility] Specimen Collected: 05/23/18 10:55 AM Last Resulted: 05/23/18 ?5:59 PM Lab Flowsheet Order Details View Encounter Lab and Collection Details Routing Result History HEPATIC FUNCTION PNL Order: [id number] Status: Final result ??Visible to patient: No [...] 6.3 - 8.0 g/dL 7.5 Resulting Agency [facility] Specimen Collected: 05/23/18 10:55 AM Last Resulted: 05/23/18 11:41 AM Lab Flowsheet Order Details View Encounter Lab and Collection Details Routing Result History BASIC METABOLIC PNL Order: [id number] Status: Final result ??Visible to patient: No (Not Released) Next appt: 01/12/2019 at 03:45 PM in [facility] (Justus Bailey MD) Dx: Thrombocytopenia (HCC); Abnormal weig... Ref Range AND Units 2wk ago Glucose 74 - 99 mg/dL 86 Comment: The [place] [employer] (ADA) provides guidance for cutoff [...] Standards of Medical Care in Diabetes 2016, [place] [employer]. Diabetes Care. 2016.39(Suppl 1). BUN [...] Result History HIV 1,2 COMBO (AG/AB) Order: [id number] Status: Final result ??Visible to patient: No (Not Released) Next appt: 01/12/2019 at 03:45 PM in [facility] (Justus Bailey MD) Dx: Thrombocytopenia (HCC); Abnormal weig... Ref Range AND Units 2wk ago HIV 12 Combo (Ag/Ab) Non Reactive Non Reactive Comment: (NOTE) HIV Information: ?[place] Rev. Code 3701.243(E): This information has been [...] Routing Result History SED RATE WESTERGREN Order: [id number] Status: Final result ??Visible to patient: No [...] Result History KAUSHIK BY IFA SCREEN Order: [id number] Status: Final result ??Visible to patient: No [...] BLOOD Collected: 05/23/2018 10:56 AM Resulting Agency: [facility] Result Information Flag: Abnormal Status: Final result (Resulted: 05/23/2018 ?2:56 PM) Provider Status: Reviewed Patient Release Status: This result is not viewable by the patient. Routing History Priority Sent On From To Message Type 05/23/2018 11:37 AM , Lab [facility] [place] In Justus Bailey Results View [employer] Info ABS GRAN CT + CBC ? ? (FOR [facility]) (Order #[id number]) on 05/23/18 Order Report Order Details Current [...] ABS GRAN CT + CBC ([facility]) Justus Bailey MD Normal [facility] KAUSHIK by IFAon 05-23-2018 KAUSHIK Pattern Negative Normal [facility] Comment on above: Performed By: #### W SR, TSH, HIV12C, B12, SERFOL, ANAIFS, MMA ####[facility] [place], [place] [phone] KAUSHIK Titer Negative Normal Negative [facility] Comment on above: Result Comment: Norm al range : negative at <1:80 serum dilution. Performed By: #### W SR, TSH, HIV12C, B12, SERFOL, ANAIFS, MMA ####[facility], [place] [phone] Nuclear Ab IF titer (S) Negative Normal Negative [facility] Comment on above: Result Comment: Norm al range : negative at <1:80 serum dilution. Approximately 6% of patients with connective tissue diseases with low positive EIA values are negative by IFA. Recommend follow-up with specific antinuclear antibodies if clinically indicated. Performed By: #### W SR, TSH, HIV12C, B12, SERFOL, ANAIFS, MMA ####[facility], [place] [phone] APTTon 05-23-2018 aPTT Coag time (Bld) 26.7 s Normal 23.0-32.4 [facility] Comment on above: Result Comment: Unfr actionated [...] laboratory APTT reagent in use throughout the [facility]. Performed By: #### W SR, TSH, HIV12C, B12, SERFOL, ANAIFS, MMA #### [facility] [address] [address] Basic Metabolic Panlon 05-23 Anion gap molar conc 12 mmol/L Normal 9-18 [facility] Comment on above: Performed By: #### W SR, TSH, HIV12C, B12, SERFOL, ANAIFS, MMA #### [place] [address] [place] [phone] Calcium mass conc 9.6 mg/dL Normal 8.6-10.0 [facility] Comment on above: Performed By: #### W SR, TSH, HIV12C, B12, SERFOL, ANAIFS, MMA #### [place] [address] [place] [phone] Chloride molar conc 104 mmol/L Normal 97-105 [facility] Comment on above: Performed By: #### W SR, TSH, HIV12C, B12, SERFOL, ANAIFS, MMA #### [place] [address] [place] [phone] CO2 molar conc 25 mmol/L Normal 22-30 [facility] Comment on above: Performed By: #### W SR, TSH, HIV12C, B12, SERFOL, ANAIFS, MMA #### [place] [address] [place] [phone] Creatinine mass conc 0.70 mg/dL Normal 0.58-0.96 [facility] Comment on above: Performed By: #### W SR, TSH, HIV12C, B12, SERFOL, ANAIFS, MMA #### [place] [address] [place] [phone] eGFR- Amer. >60 Normal [facility] Comment on above: Performed By: #### W SR, TSH, HIV12C, B12, SERFOL, ANAIFS, MMA #### [facility] [address] [place], [place] [address] GFR/1.73 sq M predicted among non-blacks MDRD vol rate/area (S/P/Bld) mL/min/{1.73_m2} Normal [facility] Comment on above: Result Comment: eGFR (Estimated [...] TSH, HIV12C, B12, SERFOL, ANAIFS, MMA #### [facility] [address] [place], [place] [address] Glucose mass conc 86 mg/dL Normal 74-99 [facility] Comment on above: Result Comment: The [place] [employer] (ADA) provides guidance for cutoff [...] Standards of Medical Care in Diabetes 2016, [place] [employer]. Diabetes Care. 2016.39(Suppl 1). Performed By: #### W SR, TSH, HIV12C, B12, SERFOL, ANAIFS, MMA #### [facility] [address] [place], [place] [address] Potassium molar conc 4.3 mmol/L Normal 3.7-5.1 [facility] Comment on above: Performed By: #### W SR, TSH, HIV12C, B12, SERFOL, ANAIFS, MMA #### [facility] [address] [place] [address] Sodium molar conc 141 mmol/L Normal 136-144 [facility] Comment on above: Performed By: #### W SR, TSH, HIV12C, B12, SERFOL, ANAIFS, MMA #### [facility] [address] [place] [address] Urea nitrogen mass conc 12 mg/dL Normal 7-21 [facility] Comment on above: Performed By: #### W SR, TSH, HIV12C, B12, SERFOL, ANAIFS, MMA #### [facility] [address] [place] [address] Folate, Serumon 05-23-2018 Folate mass conc 13.5 ng/mL Normal >4.7 [facility] Comment on above: Performed By: #### W SR, TSH, HIV12C, B12, SERFOL, ANAIFS, MMA ####[facility] [place], [place] [address]d [place] [phone] HIV 12 Combo (Ag/Ab)on 05-23 HIV 12 Ag/Ab Non Reactive Normal Non Reactive [facility] Comment on above: Result Comment: (NOT E) HIV Information: [place] Rev. Code 3701.243(E): This information has been [...] TSH, HIV12C, B12, SERFOL, ANAIFS, MMA #### [facility] [address] [place] [address] Hepatic Functn Panelon 05-23 Albumin mass conc 4.6 g/dL Normal 3.9-4.9 [facility] Comment on above: Performed By: #### W SR, TSH, HIV12C, B12, SERFOL, ANAIFS, MMA #### [facility] [address] [place] [address] ALP enzyme act/vol 106 U/L Normal 34-123 [facility] Comment on above: Performed By: #### W SR, TSH, HIV12C, B12, SERFOL, ANAIFS, MMA #### [place] [address] [place] [phone] ALT enzyme act/vol 15 U/L Normal 7-38 [facility] Comment on above: Performed By: #### W SR, TSH, HIV12C, B12, SERFOL, ANAIFS, MMA #### [place] [address] [place] [phone] AST enzyme act/vol 16 U/L Normal 13-35 [facility] Comment on above: Performed By: #### W SR, TSH, HIV12C, B12, SERFOL, ANAIFS, MMA #### [place] [address] [place] [address] Bilirubin mass conc 0.2 mg/dL Normal 0.2-1.3 [facility] Comment on above: Performed By: #### W SR, TSH, HIV12C, B12, SERFOL, ANAIFS, MMA #### [facility] [address] [place] [address] Bilirubin,Conjugate d <0.2 Normal <0.2 [facility] Comment on above: Performed By: #### W SR, TSH, HIV12C, B12, SERFOL, ANAIFS, MMA #### [place] [address] [place] [address] Protein mass conc 7.5 g/dL Normal 6.3-8.0 [facility] Comment on above: Performed By: #### W SR, TSH, HIV12C, B12, SERFOL, ANAIFS, MMA #### [facility] [address] [place] [phone] Methylmalonic Acidon 018 Methylmalonic Acid 100 nmol/L Normal 79-376 [facility] Comment on above: Result Comment: This test was developed and its performance characteristics determined by [facility]'s Psychiatric Pathology and Laboratory Medicine [place] [facility] It has not been cleared or approved by the FDA. -[facility] is regulated under CLIA as qualified to perform high-complexity testing. This test is used for clinical purposes. It should not be regarded as investigational or for research. Performed By: #### W SR, TSH, HIV12C, B12, SERFOL, ANAIFS, MMA ####[place] [address] [place], [place] [phone] Platelet Aggr. Panelon 05-23 ADP 20 Max Aggreg 76 % Max Normal 70-100 [facility] Comment on above: Performed By: #### A GGPLP ####[address] [phone] ADP Max Aggreg 86 % Max Normal 70-100 [facility] Comment on above: Performed By: #### A GGPLP ####[facility] [place], [place] [phone] Arach Max Aggreg 93 % Max Normal 66-100 [facility] Comment on above: Performed By: #### A GGPLP ####[address] [phone] ATP Rel by ADP 0.3 nM Normal 0.2-1.6 [facility] Comment on above: Performed By: #### A GGPLP ####[place] [phone] ATP Rel by ADP 20 0.5 nM Normal 0.2-1.6 [facility] Comment on above: Performed By: #### A GGPLP ####[place] [phone] ATP Rel by Aracha 0.7 nM Normal 0-1.3 [facility] Comment on above: Performed By: #### A GGPLP ####[place] [phone] ATP Rel by Collagen 0.4 nM Normal 0.4-1.9 [facility] Comment on above: Performed By: #### A GGPLP ####[place] [phone] ATP Rel by EPI 100 0.3 nM Normal 0.3-1.7 [facility] Comment on above: Performed By: #### A GGPLP ####[place] [phone] ATP Rel by Epineph 0.0 nM Low 0.3-1.7 [facility] Comment on above: Performed By: #### A GGPLP ####[place] [phone] Collagen Max Aggreg 79 % Max Normal 70-100 [facility] Comment on above: Performed By: #### A GGPLP ####[place] [phone] Epin 100 Max Aggreg 84 % Max Normal 67-95 [facility] Comment on above: Performed By: #### A GGPLP ####[place] [phone] Epin Max Aggreg 16 % Max Low 67-95 [facility] Comment on above: Performed By: #### A GGPLP ####[address] [phone] Plt Aggreg Interp (NOTE) Normal [facility] Comment on above: Result Comment: Perf orming [...] normal individuals. Performed By: #### A GGPLP ####[place] [phone] Risto 1200 Max Agg 81 % Max Normal 68-100 [facility] Comment on above: Performed By: #### A GGPLP ####[address] [phone] Risto 1500 Max Agg 86 % Max Normal 75-100 [facility] Comment on above: Performed By: #### A GGPLP ####[address] [phone] Risto 600 Max Agg 5 % Max Normal 0-26 [facility] Comment on above: Performed By: #### A GGPLP ####[address] [phone] Risto 900 Max Agg 86 % Max Normal 0-90 [facility] Comment on above: Performed By: #### A GGPLP ####[facility] [place], [place] [phone] Protimeon 05-23-2018 Prothrombin time (PT) Coag time (PPP) 9.3 s Low 9.7-13.0 [facility] Comment on above: Performed By: #### W SR, TSH, HIV12C, B12, SERFOL, ANAIFS, MMA #### [facility] [address] [place], [place] [address] Prothrombin time (PT) Coag time (PPP) s Low 0.9-1.3 [facility] Comment on above: Result Comment: Adriana min K Antagonist (VKA) Therapeutic Range: INR 2 to 3 (Target INR of 2.5) Note: For patients treated with VKA drugs, such as warfarin, the [place] [employer] 2012 Guideline recommends [...] Chest 2012, 141:7S-47S Gilberto RA, et al. [facility] 2017, 70: 252-289 Performed By: #### W SR, TSH, HIV12C, B12, SERFOL, ANAIFS, MMA #### [facility] [address] [place], [place] [address] Remote Abs Gran + CBC (for [facility] use only)on 05-23-2018 Absol Gran Count 2.03 k/uL Normal 1.45-7.50 [facility] Comment on above: Performed By: #### R AGCBC ####[place] [address] [phone] Absolute nRBC <0.01 Normal <0.01 [facility] Comment on above: Performed By: #### R AGCBC ####[place] [address] [phone] Erythrocyte distribution width Ratio (RBC) 13.4 % Normal 11.5-15.0 [facility] Comment on above: Performed By: #### R AGCBC ####[place] [address] [place] [phone] Hematocrit Volume Fraction (Bld) 40.4 % Normal 36.0-46.0 [facility] Comment on above: Performed By: #### R AGCBC ####[place] [phone] Hemoglobin mass conc (Bld) 13.6 g/dL Normal 11.5-15.5 [facility] Comment on above: Performed By: #### R AGCBC ####[place] [address] [place] [phone] MCH Entitic mass (RBC) 35.5 pG High 26.0-34.0 [facility] Comment on above: Performed By: #### R AGCBC ####[place] [address] [phone] MCHC mass conc (RBC) 33.7 g/dL Normal 30.5-36.0 [facility] Comment on above: Performed By: #### R AGCBC ####[place] [address] [phone] MCV Entitic volume (RBC) 105.5 fL High 80.0-100.0 [facility] Comment on above: Performed By: #### R AGCBC ####[place] [address] [phone] Platelet mean volume Entitic volume (Bld) 9.7 fL Normal 9.0-12.7 [facility] Comment on above: Performed By: #### R AGCBC ####[facility] [place], [place] [phone] Platelets #/vol (Bld) 145 10*3/uL Low 150-400 [facility] Comment on above: Performed By: #### R AGCBC ####[place] [phone] RBC #/vol (Bld) 3.83 10*6/uL Low 3.90-5.20 [facility] Comment on above: Performed By: #### R AGCBC ####[place] [phone] WBC #/vol (Bld) 3.89 10*3/uL Normal 3.70-11.00 [facility] Comment on above: Performed By: #### R AGCBC ####[facility] [place], [place] [phone] Sed Rate Westergrenon 2017 Sed Rate Westergren 12 mm/hr Normal 0-20 [facility] Comment on above: Performed By: #### W SR, TSH, HIV12C, B12, SERFOL, ANAIFS, MMA #### [facility] [address] [place] [phone] TSHon 05-23-2018 Thyrotropin Qn 2.160 uU/mL Normal 0.400-5.500 [facility] Comment on above: Result Comment: If t he patient is , TSH reference range varies by gestational period: First Trimester 0.100-2.500 uU/mL Second Trimester 0.200-3.000 uU/mL Third Trimester 0.300-3.000 uU/mL References: 1. Everett L, Angie M, Messi EK, et al. Management of Thyroid Dysfunction during and : An Endocrine Society Clinical Practice Guideline. J Clin Endocrinol Metab, 2012:97:5332-7956. 2. Patrick STONER. Overview of thyroid disease in . UpToDate. 2016. Accessed on November 22, 2015. Performed By: #### W SR, TSH, HIV12C, B12, SERFOL, ANAIFS, MMA #### [facility] [address] [place], [place] [address] Vitamin B12on 05-23-2018 Cobalamin (Vitamin B12) mass conc 588 pg/mL Normal 232-1245 [facility] Comment on above: Performed By: #### W SR, TSH, HIV12C, B12, SERFOL, ANAIFS, MMA ####[facility] [address] [place], [place] [phone] CNCOon 05-13-2018 CNCO Letter Text Dear Shantal Messina: How to activate your [facility] [employer] Account 1. Visit the [employer] Signup page at [email or web address] 2. Identify yourself using your one-time use activation code: [email or web address] 3. Follow the on-screen prompts to choose [...] information on the Identify Yourself Form at [email or web address] , click Next. Create your login and password, choose a [employer] ID and password that will be easy for you to use, but impossible for anyone else to guess. Pick a security question that will assist you in the event you forget your password the next time you log-on. If you have difficulty activating your account, please call our [employer] helpline at [phone] or toll free at . We hope you enjoy using [employer]! Kindest Regards, [facility] [employer] Team Normal [facility] CNOVSPon 05-13-2018 CNOVS Visit (SP) Office ([place]) SHANTAL MESSINA ([id number]) 1975 F Date Time Provider Department 05/13/18 8:30 AM JUSTUS BAILEY During your visit today, we recorded the following information about you: Temperature Pulse Respiration Blood pressure 98.7 degrees 76/minute 18/minute 128/89 Weight Height 70.2 kg 1.735 m Justus Bailey MD 05/13/2018 3:13 PM Signed HPI Shantal Messina is a [...] ABS GRAN CT + CBC (FOR [facility]) - PROTHROMBIN TIME/PT - ACTIVATED PTT [...] SCREEN Justus Bailey MD Referring Provider: FADUMO FULLER [[id number]] Allergies As of Date: 05/13/2018 Noted Allergy Reaction MORPHINE 05/10/2018 4 - Hives Date Reviewed: 05/13/2018 Reviewed by: Mela Alfaro - Fully Assessed Reason for Visit: Thrombocytopenia [603] Cmt: New patient consultation Primary Visit Diagnosis:Thrombocytop enia (HCC) [D69.6] Other Visit Diagnoses:S/P PHILLY-BSO [Z90.710, Z90.722, Z90.79] Abnormal weight loss [R63.4] Order(s):ABS GRAN CT + CBC (FOR REMOTE [facility] USE) [SQRAGCBC] Order #: [id number] FUTURE PROTHROMBIN TIME/PT [SQPT] Order #: [id number] FUTURE ACTIVATED PTT [SQPTT] Order #: [id number] FUTURE PLATELET AGGREGATION PANEL [SQAGGPLP] Order #: [id number] FUTURE VITAMIN B12 BLOOD [SQB12] Order #: [id number] FUTURE METHYLMALONIC ACID [SQMMA] Order #: [id number] FUTURE FOLATE SERUM [SQSERFOL] Order #: [id number] FUTURE TSH BLD [SQTSH] Order #: [id number] FUTURE HEPATIC FUNCTION PNL [SQHFP] Order #: [id number] FUTURE BASIC METABOLIC PNL [SQBMP] Order #: [id number] FUTURE HIV 1,2 COMBO (AG/AB) [SQHIV12] Order #: [id number] FUTURE SED RATE WESTERGREN [SQWSR] Order #: [id number] FUTURE KAUSHIK BY IFA SCREEN [SQANAIFS] Order #: [id number] FUTURE Disposition: Return in about 4 weeks [...] by JUSTUS BAILEY MD on 05/13/18 Normal [facility] PROGRESSon 05-13-2018 Protein mass conc HNO ID: [id number] Author: Justus Bailey Service: (none) Author Type: [...] BY IFA SCREEN Justus Bailey MD Normal [facility] Vital Signs Date Time Vital Sign Value Performing Clinician Facility 03-09-2024 13: Body height 172.[address] [facility] 03-09-2024 13:040 Body mass index (BMI) [Ratio] 20.9 kg/m2 [facility] 03-09-2024 13: Body weight 62.[address] [facility] 03-09-2024 13:19-0400 Diastolic blood pressure 82 mm[Hg] [facility] 03-09-2024 13:19-0400 Heart rate 93 /min [facility] 03-09-2024 13:19-0400 Respiratory rate 16 /min [facility] 03-09-2024 13:19-0400 SaO2% (BldA) [Mass fraction] 98 % [facility] 03-09-2024 13:19-0400 Systolic blood pressure 118 mm[Hg] [facility] 01-24-2024 15:06-0400 Body mass index (BMI) [Ratio] 20.44 kg/m2 [facility] Work Phone: [facility] 01-24-2024 15:06-0400 Body weight 60.96 kg [facility] Work Phone: [facility] 01-24-2024 15:06-0400 Diastolic blood pressure 70 mm[Hg] [facility] Work Phone: [facility] 01-24-2024 15:06-0400 Systolic blood pressure 120 mm[Hg] [facility] Work Phone: [facility] 10-14-2023 13:45-0400 Body height 172.[address] [facility] 10-14-2023 13:45-0400 Body mass index (BMI) [Ratio] 20.5 kg/m2 [facility] 10-14-2023 13:45-0400 Body weight 61.[address] [facility] 10-14-2023 13:45-0400 Diastolic blood pressure 85 mm[Hg] [facility] 10-14-2023 13:45-0400 Heart rate 83 /min [facility] 10-14-2023 13:45-0400 Systolic blood pressure 133 mm[Hg] [facility] 10-01-2023 10:40-0400 Body height 172.[address] [facility] 10-01-2023 10:40-0400 Body mass index (BMI) [Ratio] 22 kg/m2 [facility] 10-01-2023 10:40-0400 Body weight 65.[address] [facility] 10-01-2023 10:40-0400 Diastolic blood pressure 87 mm[Hg] [facility] 10-01-2023 10:40-0400 Heart rate 81 /min [facility] 10-01-2023 10:40-0400 Systolic blood pressure 135 mm[Hg] [facility] Encounters Encounter Date Encounter Type Care Provider Facility Start: 01-29-2025 End: 01-29-2025 Bamboo flowsheet Fadumo Jonny DO Work Phone: [facility] Start: 01-29-2025 End: 01-29-2025 Bamboo flowsheet Fadumo Jonny DO Work Phone: [facility] Start: 03-09-2024 End: 03-09-2024 ambulatory [facility] Work Phone: Start: 03-09-2024 End: 03-09-2024 [facility] Start: 01-24-2024 End: 01-24-2024 Patient encounter procedure Fadumo Jonny DO Work Phone: [facility] Work Phone: Start: 01-24-2024 End: 01-24-2024 Periodic preventive med est patient 40-64yrs Fadumo Jonny DO Work Phone: [facility] Comment on above: Well woman exam with routine gynecological exam; Breast cancer screening by mammogram Start: 01-24-2024 End: 01-24-2024 ambulatory FADUMO JONNY Not Available Start: 01-24-2024 End: 01-24-2024 Bamboo flowsheet Fadumo Jonny DO Work Phone: [facility] Start: 01-24-2024 End: 01-28-2024 Bamboo flowsheet Fadumo Jonny DO Work Phone: [facility] Start: 01-24-2024 End: 01-28-2024 Clinisync Result Encounter Fadumo Jonny DO Work Phone: [facility] Unsolicited Start: 10-14-2023 End: 10-14-2023 ambulatory [facility] Work Phone: Start: 10-14-2023 End: 10-14-2023 Patient [facility] procedure [facility] Work Phone: Start: 10-01-2023 End: 10-01-2023 ambulatory [facility] Work Phone: Start: 10-01-2023 End: 10-01-2023 Patient encounter procedure [facility] Work Phone: Start: 03-25-2020 End: 03-25-2020 Patient encounter procedure FADUMO FULLER Facility: Start: 06-10-2018 End: 08-02-2018 [facility] Start: 05-23-2018 End: 05-24-2018 [facility] Start: 05-13-2018 End: 05-16-2018 Patient [facility] procedure [facility] Procedures Date Procedure Procedure Detail Performing Clinician Start: 01-24-2024 IGP,APTIMA HPV,AGE GDLN Fadumorohan Robertso DO Work Phone: Plan of Treatment Date Care Activity Detail Author Start: 01-29-2025 End: 01-29-2025 Patient encounter procedure [facility] Comment on above: Arrived Start: 01-24-2024 End: 01-24-2024 Patient encounter procedure 01/24/2024 3:00 PM EDT Office Visit [facility] [address] [place] [address] Fdaumo Fuller, DO [address] [place] [address] Arrived [facility] Comment on above: Arrived Start: 01-24-2024 End: 03-25-2025 MG Breast - bilateral Screening Bilateral screening mammogram Imaging Routine Breast cancer screening by mammogram Expected: 01/24/2024 (Approximate), Expires: 03/25/2025 [facility] Work Phone: Comment on above: Expected: 01/24/2024 (Approximate), Expires: 03/25/2025 THIN PREP TIS PAP AN D HR HPV DNA THIN PREP TIS PAP AND HR HPV DNA Pathology and Cytology Routine Well woman exam with routine gynecological exam Ordered: 01/24/2024 [facility] Comment on above: Ordered: 01/24/2024 XR Cervical spine 5 Views [facility] Payers Date Payer Category Payer [facility] [employer] [id number] 2018 Unknown BCBS BCBS [id number] 2018-Present [phone] [address] [place] [address] [id number] 1975 Unknown [id number] 1975 Unknown [id number] 1957 Unknown [id number] Social History Date Type Detail Facility Start: 09-30-2023 Tobacco smoking stat us NHIS Smoker (finding) [facility] Start: 1975 Sex Assigned At Female F [facility] Start: 01-15-2023 Tobacco smoking stat [facility] Smokes tobacco daily [facility] History of tobacco use Cigarette Smoker [facility] Start: 01-18-2023 End: 01-24-2024 Alcoholic beverage intake Current drinker of alcohol (finding) [facility] Start: 01-15-2023 End: 01-24-2024 History of Social function [facility] Start: 01-15-2023 End: 01-24-2024 Tobacco use panel [facility] Start: 01-15-2023 Alcohol Comment 1-2 drinks 2-4 x a month in the past year, Caffeine intake: 3-4 cups per day [facility] Start: 1975 Sex assigned at Not on file [facility] History of Present illness Narrative 01-24-2024 Chelsy Dhaliwal LPN - 01/24/2024 3:00 PM EDT Note Date & Type Note Facility 01-24-2024 History of Presen t illness Narrative Reason for Appointment: Patient ID: Shantal Messina is a 48 y.o. female who presents for Well Women Visit Patient presents today for Annual Exam. MEDICATIONS Current Outpatient Medications Medication Instructions estrogens (conjugated) (PREMARIN) 0.9 mg, Oral, Nightly ALLERGIES Allergies Allergen Reactions Morphine Hives and Rash PROBLEMS Active Ambulatory Problems Diagnosis Date Noted Bilateral tinnitus 01/12/2023 Resolved Ambulatory Problems Diagnosis Date Noted No Resolved Ambulatory Problems Past Medical History: Diagnosis Date Allergies Lumbar disc disease HISTORY PAST MEDICAL HISTORY SOCIAL HISTORY Past Medical History: Diagnosis Date Allergies Lumbar disc disease Social History Tobacco Use Smoking status: Every Day Types: Cigarettes Smokeless tobacco: Not on file Substance Use Topics Alcohol use: Yes Comment: 1-2 drinks 2-4x a month in the past year, Caffeine intake: 3-4 cups per day Drug use: Not on file FAMILY HISTORY Family History Problem Relation Name Age of Onset Hypertension Father SURGICAL HISTORY Past Surgical History: Procedure Laterality Date ANGIOPLASTY 2008 HYSTERECTOMY LUMBAR SPINE SURGERY 2007 L5-S1 ruptured REVIEW OF SYSTEMS Review of Systems: Review of Systems All other systems reviewed and are negative. OBJECTIVE Objective: Physical Exam Constitutional: Appearance: Normal appearance. She is well-developed. Genitourinary: Vulva normal. Vaginal cuff intact. Cervix is not absent. Uterus is not absent. Breasts: Breasts are soft. Right: Normal. Left: Normal. Cardiovascular: Rate and Rhythm: Normal rate and regular rhythm. Pulmonary: Effort: Pulmonary effort is normal. Breath sounds: Normal breath sounds. Abdominal: General: Bowel sounds are normal. There is no distension. Palpations: Abdomen is soft. Tenderness: There is no abdominal tenderness. There is no guarding or rebound. Musculoskeletal: General: No swelling. Normal range of motion. Right lower leg: No edema. Left lower leg: No edema. Neurological: Mental Status: She is alert and oriented to person, place, and time. Skin: General: Skin is warm and dry. Psychiatric: Mood and Affect: Mood normal. Behavior: Behavior normal. Vitals and nursing note reviewed. Exam conducted with a printed circuit board pcb designer present. Vitals: Estimated body mass index is 20.44 kg/m as calculated from the following: Height as of 01/18/23: 5' 8 . Weight as of this encounter: 134 lb 6.4 oz. BP: 120/70 No LMP recorded (lmp unknown). Patient has had a hysterectomy. ASSESSMENT & PLAN ICD-10-CM 1. Well woman exam with routine gynecological exam Z01.419 THIN PREP TIS PAP AND HR HPV DNA 2. 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 Advised patient to take Biotin 10,00 units. Also, could obtain Nioxin shampoo and conditioner. Annual: Patient presents today for an annual exam. Patient states she is doing well with above complaints. Pap was obtained without difficulty and patient given mammogram order to have scheduled/obtained. Orders Placed This Encounter Procedures Bilateral screening mammogram Discussed with patient that the new age recommendations for colonoscopy is 45. Follow Up: Patient is to return in one year for annual unless needed otherwise. Documented by Chelsy Dhaliwal LPN on behalf of: Fadumo Fuller DO documented in this encounter [facility] Evaluation note Note Date & Type Note Facility Evaluation note No assessment [facility]: Evaluation note Note Date & Type Note Facility Evaluation note Diagnosis Onset Date Contact dermatitis acute Contact dermatitis acute [facility] Work Phone: Evaluation note Note Date & Type Note Facility Evaluation note Diagnosis Onset Date Cervical radicular pain acut e [facility] Work Phone: Evaluation note Note Date & Type Note Facility Evaluation note Diagnosis Well woman exam with routine gynecological exam Routine gynecological examination Breast cancer screening by mammogram documented in this encounter [facility] Summary Purpose Family History Relationship Condition Age at Onset Recorded Date/T alessandra father Prediabetes Unknown Not Specified Asthma Unknown Relationship Condition Age at Onset Recorded Date/T alessandra father Prediabetes Unknown mother Asthma Unknown Advance Directives Advance Directive Response Recorded Date/ Time Advance Directives No September 29, 024 2:38pm Chief Complaint and Reason for Visit Chief Complaint reaction to paint Chief Complaint reaction to paint Rash Reason for Visit Contact dermatitis Contact dermatitis Chief Complaint Neck/Shoulder Pain Reason for Visit Cervical radicular p ain Additional Source Comments INFORMATION SOURCE (unrecogn ized section and content) DATE CREATED AUTHOR 08/02/2018 [facility] DATE CREATED AUTHOR AUTHOR'S ORGANIZ ATION 04/01/2020 [facility] DATE CREATED AUTHOR AUTHOR'S ORGANIZ ATION 01/25/2024 [facility] EPIC Care Teams (unrecognized [...] October 14, 2023 End: October 14, 2023 Team Status: Inactive Member Role Status Dates Antonia Torres MD Primary Care Provide r, Attending Provider Active Start: March 09, 2024 End: March 09, 2024 Pediatric Care Coordinator Relationship Specialty Start Date End Date Antonia Torres MD [address] [place] [id number] PCP - General Family Medicine 01/18/23 Pediatric Care Coordinator Relationship Specialty Start Date End Date Antonia Torres MD [address] [place] [id number] PCP - General Family Medicine 01/18/23 Pediatric Care Coordinator Relationship Specialty Start Date End Date Antonia Torres MD [address] [place] [id number] PCP - General Family Medicine 01/18/23 Goals (unrecognized section and content) Goals may be documented in a n alternate sectionGoals may be documented in an alternate sectionGoals may be documented in an alternate section Reason for Visit (unrecogniz ed section and content) Reason Comments Well Women Visit FOR RECORDS PERTAINING TO PATIENTS WHO ARE [...] BE BASED ON THE PRIMARY CLINICAL RECORDS. [employer] provides no warranty or guarantee of the accuracy or completeness of information in this document.
[2025-02-01 18:10] LABS: Age Gdln ACOG Testing Note (.); IGP, Aptima HPV, rfx 16/18,45 Note (.)
== END 2025-01-29 20:21 | disposition home or self-care (01) ==
LOC: LAB 20:20
PROVIDERS: PCP Family Medicine; Visit Provider Obstetrics & Gynecology
DX: Z01.419 Encounter for gynecological examination (general) (routine) without abnormal findings (principal); Z90.710 Acquired absence of both cervix and uterus
CPT/HCPCS: 87624; 88175

== ENCOUNTER 2025-03-16 14:57 | Outpatient (OUT) | payer BC, SELFPAY ==
--- OUTSIDE RECORDS SUMMARY | 2025-03-16 15:00 | XMS_ITS | CCD ---
Author Organization [facility] Care Team Providers Care Flooring Professional Name Role Phone JUSTUS BAILEY Attending Unavailable FADUMO FULLER Referring Unavailable ANTONIA TORRES Referring Unavailable JUSTUS BAILEY Referring Unavailable ANTONIA TORRES Referring Unavailable DELORIS DEWITT ([facility]) Referring UnavailJUSTUS Hearn Attending Unavailable ANTONIA TORRES Referring Unavailable FADUMO FULLER Admitting Unavailable FADUMO FULLER Attending Unavailable FADUMO FULLER Consulting Unavailable Antonia Torres MD Primary Care Provider [phone] Antonia Torres MD Primary Care Provider FADUMO FULLER Attending Unavailable Antonia Torres MD Primary Care Provider Fadumo Fuller DO Attending Provider [phone] Antonia Torres MD Attending Provider ANTONIA TORRES Primary Care Physician Fadumo FULLER R Referring Unavailable Alirio BRANNON Attending Unavailable Allergies Allergy Classification Reported Allergen(s) Allergy Type Date of Onset Reaction(s) Facility (11 sources) Morphine; Translations: [MORPHINE] Drug Allergy 8 Hives, Rash, Weal (disorder) [facility] Repository Medications Current Medications Medication Drug Class(es) Dates Sig (Normalized) Sig (Original) diphenhydrAMINE hydrochloride 25 mg oral tablet (1 source) Histamine-1 Receptor Antagonist Start: 02-20-2025 take 1 tablet by mouth once daily Benadryl 25 mg Tab = 1 tab(s), Oral, Daily, Refills(s) 0 Start Date: 02/20/25 Status: Ordered Repeat number: 1 estrogens, conjugated (mcfp) 0.9 mg oral tablet (12 sources) Estrogen Start: 02-07-2025 take 1 tablet by mouth once daily Premarin 0.9 mg Tab 0.9 mg = 1 tab(s), Oral, Daily, Refills(s) 0 Start Date: 02/07/25 Status: Ordered Repeat number: 1 Start: 08-21-2024 take 1 tablet by roshni th once daily at bedtime Premarin 0.9 MG tablet Indications: Postmenopausal HRT (hormone replacement therapy) TAKE 1 TABLET BY MOUTH EVERYDAY AT BEDTIME 30 tablet 5 08/21/2024 Active Start: 10-01-2023 take 1 tablet by roshni th once daily Conjugated Estrogens (Premarin) 0.3 mg tablet Active 0.3 MG PO Daily October 01, 2023 12:00am cyclically Complies with drug therapy Start: 07-13-2023 take 1 tablet by roshni th at bedtime estrogens, conjugated, (Premarin) 0.9 MG tablet Indications: Postmenopausal HRT (hormone replacement therapy) Take 1 tablet (0.9 mg) by mouth at bedtime 30 tablet 5 07/13/2023 Active valACYclovir 1000 mg oral tablet (1 source) Herpesvirus Nucleoside Analog DNA Polymerase Inhibitor, Herpes Simplex Virus Nucleoside Analog DNA Polymerase Inhibitor, Herpes Zoster Virus Nucleoside Analog DNA Polymerase Inhibitor Start: 02-20-2025 Valacyclovir (Valtr ex) 1 gram tablet Active 1000 MG PO Three times daily February 20, 2025 12:00am Complies with drug therapy Completed/Discontinued Medications Medication Drug Class(es) Dates Sig (Normalized) Sig (Original) baclofen 10 mg oral tablet (4 sources) gamma-Aminobutyric Acid-ergic Agonist Start: 4 End: 4 take 1 tablet by mouth once daily Baclofen 10 mg tablet Discontinued 10 MG PO Daily October 01, 2023 12:00am October 01, 2023 10:43am fluticasone propionate 0.05 mg/actuat metered dose nasal spray (4 sources) Corticosteroid Start: 4 End: 4 take 1 spray(s) nasal route once daily Fluticasone Propionate 50 mcg/actuation spray,suspension Discontinued 1 SPRAY INTRANASAL Daily October 01, 2023 12:00am October 01, 2023 11:06am FreeTextSi spray in each nostril Nasally Once a day; Note: Source Status: Start; Provider: Janice Muller gabapentin 100 mg oral capsule (7 sources) Anti-epileptic Agent Start: 3 End: 4 take 1 capsule by mouth twice daily in the morning, then take 2 capsules by mouth in the evening Gabapentin 100 mg capsule Discontinued 100 MG PO Twice daily October 01, 2023 12:00am October 01, 2023 11:06am FreeTextSig: TAKE 1 CAPSULE BY MOUTH IN THE MORNING AND 2 CAPSULES IN THE EVENING; Note: Source Status: Start; Refills: 3; Qty: 90 Capsule; Provider: Melissa Knight ( ) methylPREDNISolone 4 mg oral tablet (6 sources) Corticosteroid Start: Methylprednisolone Active 0 PO per package directions March 09, 2024 1:35pm PO PER PKG DIR for 6 days Start: 10-01-2023 End: 02-20-2025 Methylprednisolone 4 mg tabl ets,dose pack Discontinued 0 PO per package directions March 09, 2024 1:35pm February 20, 2025 1:44pm PO PER PKG DIR for 6 days Start: 10-01-2023 End: 03-09-2024 Methylprednisolone Discontin ued 0 PO per package directions October 01, 2023 12:00am March 09, 2024 1:18pm PO PER PKG DIR for 6 days Start: 10-01-2023 Methylpredniso lone Active 0 PO per package directions October 01, 2023 12:00am PO PER PKG DIR for 6 days triamcinolone acetonide 1 mg/ml topical cream (4 sources) Corticosteroid Start: 10-01-2023 End: 03-09-2024 Triamcinolone Acetonide 0.1 % cream Discontinued 1 APPLIC TOPICAL Daily October 01, 2023 12:00am March 09, 2024 1:18pm Problems Active Problems Problem Classification Problem Date Documented Date Episodic/Chronic Allergic reactions (5 sources) Contact dermatitis; Translations: [Unspecified contact dermatitis, [...] conditions (not mental disorders or infectious disease) (14 sources) Encounter for screening for malignant neoplasm of cervix; Translations: [Patient encounter status] Onset: 03-25-2020 01-24-2024 Episodic Other upper respiratory disease (1 source) Allergic rhinitis 02-07-2025 Chronic Residual codes; unclassified (1 source) Acquired absence of both cervix and uterus; Translations: [Acquired absence of both cervix and uterus] Onset: 05-13-2018 Episodic Residual codes; unclassified (1 source) Acquired absence of ovaries, bilateral; Translations: [Acquired absence of ovaries, bilateral] Onset: 05-13-2018 Episodic Residual codes; unclassified (1 source) Acquired absence of other genital organ(s); Translations: [Acquired absence of other genital organ(s)] Onset: 05-13-2018 Episodic Residual codes; unclassified (1 source) Tobacco user 02-20-2025 Episodic Spondylosis; intervertebral disc disorders; other back problems (1 source) 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 Chronic Spondylosis; intervertebral disc disorders; other back problems (3 sources) Cervical nerve root pain; Translations: [Radiculopathy, cervical region] 03-09-2024 Episodic Unclassified (1 source) Patient encounter status 02-20-2025 Past or Other Problems Problem Classification Problem Date Documented Da te Episodic/Chronic Other ear and sense organ disorders (8 sources) Bilateral tinnitus; Translations: [Tinnitus, bilateral] Onset: 01-12-2023 01-12-2023 Episodic Results Test Name Value Interpretation Reference Range Facility Ambulatory Visit Summaryon 0 02-20-2025 Ambulatory Visit Summary Ambulatory Visit Summary SHANTAL MESSINA :1975 Visit Date:02/20/2025 Ambulatory Visit Instructions Your Diagnosis Screening for malignant neoplasm of colon Your Care Team Attending Physician - RITESH ARRIETA, Alirio Cardoso Primary Care Physician - MELISSA ARRIETA, ANTONIA Referring Physician - Fadumo FULLER DO This Is Your Medications List Contact prescribing physician if questions or concerns conjugated estrogens (Premarin 0.9 mg Tab) diphenhydrAMINE (Benadryl 25 mg Tab) Procedures Performed Angioplasty (2007), EGD - esophagogastroduoden oscopy, Lumbar discectomy, PHILLY BSO - Total abdominal hysterectomy and bilateral salpingo-oophorectom y. Discharge Vitals Heart Rate (Peripheral) 72 Respiratory Rate 16 Blood Pressure 149/86 Height 172.72 cm Height 68 in Weight 60.2 kg Weight 132.718 lb BMI 20.18 Medications What How Much When Instructions Unchanged conjugated estrogens (Premarin 0.9 mg Tab) 1 Tablets By Mouth Every day Contact prescribing physician if questions or concerns Unchanged diphenhydrAMINE (Benadryl 25 mg Tab) 1 Tablets By Mouth Every day Contact prescribing physician if questions or concerns Allergies morphine (Hives) Problems Ongoing - Any problem that you are currently receiving treatment for. Allergic rhinitis Lumbar disc disease Screening for malignant neoplasm of colon Patient Survey You may receive a survey via text or e-mail asking about your office visit. Please share your experience with us by completing your survey. We appreciate your feedback and thank you for choosing us for your care. Patient Portal You may access all of your results and other medical record information on our secure patient portal. If you are not signed up for this yet, please contact [employer] at [phone] to get signed up today. Language Information Language assistance services are available as needed. Normal [facility] IGP,APTIMA HPV,AGE GDLNon AGE GDLN ACOG TESTING Note . [facility] Comment on above: TESTS RESULT FLAG U NITS REF RANGE LAB Clinician Provided Cytology Information Source.............Vagina No. of containers..01 ThinPrep Vial Age Algo ACOG Ria... FLAG LEGEND: L-Low Normal,H-High Normal,LL-Alert Low,HH-Alert High <-Panic Low,>-Panic High,A-Abnormal,AA-Critical Abnormal Performed at: 01 =[address] [address] Sheron Solares MD, HPV APTIMA Negative Negative [facility] Comment on above: This nucleic acid am plification test detects fourteen high- risk HPV types (16,18,31,33,35,39,45,51,52,56,58,59,66,68) without differentiation. Performed at: =[address] [id number] Electrical Engineer Mep: Sheron Solares MD, Phone: [phone] Performed at: [address] [id number] Electrical Engineer Mep: Sheron Solares MD, Phone: [phone] IGP, APTIMA HPV, RFX 16/18,45 Note . [facility] Comment on above: TESTS RESULT FLAG UN ITS REF RANGE LAB DIAGNOSIS: 02 NEGATIVE FOR INTRAEPITHELIAL LESION OR MALIGNANCY. Specimen adequacy: 02 Satisfactory for evaluation. Performed by: 02 Izabella Bhat, Java User Interface Developer (ASCP) . 02 Note: Note 02 The Pap [...] <-Panic Low,>-Panic High,A-Abnormal,AA-Critical Abnormal Performed at: [address] [address] Sheron Solares MD, SPATULA-ALONE VAGINA CL[facility] Human papilloma virus 16+18+ 31+33+35+39+45+51+52+56+58+59+66+68 DNA [Presence] in CerOrdered By: Fadumo Fuller on 01-29-2025 HPV 16+18+31+33+35+39+45+51 +52+56+58+59+66+68 DNA Probe+sig amp Ql (Cvx) Negative Negative [facility] Comment on above: This nucleic acid am plification test detects fourteen high-risk HPV types (16,18,31,33,35,39,45,51,52,56,58,59,66,68)without differentiation.Performed at: = - [address] [id number] Director: Sheron Solares MD, Phone: [phone] at: [address] [id number] Director: Sheron Solares MD, Phone: [phone] No Panel InformationOrdered By: Fadumo Fuller on 01-29-2025 HPV High Risk Other Comment Note . [facility] Comment on above: TESTS RESULT FLAG UN ITS REF RANGE LAB -DIAGNOSIS: 02 NEGATIVE FOR INTRAEPITHELIAL LESION OR MALIGNANCY.Specimen adequacy: 02 Satisfactory for evaluation.Performed by: 02 Izabella Bhat, Java User Interface Developer ([facility]). 02Note: Note 02 The Pap smear is a screening test designed to aid in the detection of premalignant and malignant conditions of the uterine cervix. It is not a diagnostic procedure and should not be used as the sole means of detecting cervical cancer. Both false-positive and false-negative reports do occur.Test Methodology: Note 02 This liquid based ThinPrep(R) pap test was screened with the use of an image guided system.HPV Genotype Reflex Note 02 Criteria not met, HPV Genotype not performed. -------- FLAG LEGEND: L-Low Normal,H-High Normal,LL-Alert Low,HH-Alert High <-Panic Low,>-Panic High,A-Abnormal,AA-Critical Abnormal ------Performed at:[address] [place] [address] Sheron Solares MD, Reference Lab Test Patient Age Note . [facility] Comment on above: TESTS RESULT FLAG UN ITS REF RANGE LAB - Clinician Provided Cytology Information Source.............Vagina No. of containers..01 ThinPrep VialAge Nighato ACOG Ria... FLAG LEGEND: L-Low Normal,H-High Normal,LL-Alert Low,HH-Alert High <-Panic Low,>-Panic High,A-Abnormal,AA-Critical Abnormal ------Performed at:01 =G [facility] [place] [address] Sheron Solares MD, IGP,APTIMA HPV,AGE GDLNon AGE GDLN ACOG TESTING Note . [facility] Comment on above: TESTS RESULT FLAG UN ITS REF RANGE LAB Clinician Provided Cytology Information Source.............Vagina No. of containers..01 ThinPrep Vial Age Nighato ACOG Ria... FLAG LEGEND: L-Low Normal,H-High Normal,LL-Alert Low,HH-Alert High <-Panic Low,>-Panic High,A-Abnormal,AA-Critical Abnormal Performed at: 01 =[address] [place] [address] Sheron Solares MD, HPV APTIMA Negative Negative [facility] Comment on above: This nucleic acid am plification test detects fourteen high- risk HPV types (16,18,31,33,35,39,45,51,52,56,58,59,66,68) without differentiation. Performed at: =[address] [id number] Electrical Engineer Mep: Sheron Solares MD, Phone: [phone] Performed at: [address], [place] [id number] Electrical Engineer Mep: Sheron Solares MD, Phone: [phone] IGP, APTIMA HPV, RFX 16/18,45 Note . [facility] Comment on above: TESTS RESULT FLAG UN ITS REF RANGE LAB DIAGNOSIS: 02 NEGATIVE FOR INTRAEPITHELIAL LESION OR MALIGNANCY. Specimen adequacy: 02 Satisfactory for evaluation. No endocervical cells are present. This is consistent with a history of hysterectomy. Performed by: 02 Felcie Crow, Briar Cutter ([facility]) . 02 Note: Note 02 The Pap [...] Low,>-Panic High,A-Abnormal,AA-Critical Abnormal Performed at: [address] [address] Sheron Solares MD, [facility]UL[facility]ology Cervical or vaginal smear or scraping studyOrdered By: Abby Akbar on 01-24-2024 [facility] PAP ACOG PANEL 2: 30 to 65on 04-01-2020 Age Gdln ACOG Testing -67 Normal [facility] Comment on above: Performed By: #### [id number] #### [facility] [address] [address] Eusebio Whittaker DIAGNOSIS: Comment Normal [facility] Comment on above: Result Comment: NEGA TIVE FOR INTRAEPITHELIAL LESION OR MALIGNANCY. THIS SPECIMEN WAS RESCREENED PART OF OUR TRADE RECRUITER PROGRAM. Performed at: WB Performed By: #### 4 [id number] #### [facility] [address] [id number] Eusebio Whittaker HPV Aptima Negative Normal Negative [facility] Comment on above: Result Comment: This test was developed and its performance characteristics determined by [facility]. It has not been cleared or approved by the Food and Drug Administration. This nucleic acid amplification test detects fourteen high-risk HPV types (16,18,31,33,35,39,45,51,52,56,58,59,66,68) without differentiation. Performed at: =G Performed By: #### 4 [id number] #### [facility] [address] [id number] Eusebio Whittaker Methodology: Comment Normal [facility] Comment on above: Result Comment: This liquid based SurePath(R) pap test was screened with the assistance of an image guided system. Performed at: WB Performed By: #### [id number] #### [facility] [address] [place] [address] Eusebio Whittaker Note: Comment Normal [facility] Comment on above: Result Comment: The Pap smear is a screening test designed to aid in the detection of premalignant and malignant conditions of the uterine cervix. It is not a diagnostic procedure and should not be used as the sole means of detecting cervical cancer. Both false-positive and false-negative reports do occur. . Performed at: WB Performed By: #### 4 [id number] #### [facility] [address] [place] [address] Eusebio Handleyen Performed by: Comment Normal [facility] Comment on above: Result Comment: Juan Diego Bhagat, Briar Cutter (ASCP) Performed at: WB Performed By: #### 4 [id number] #### [facility] [address] [place] [address] Eusebio Remedios QC reviewed by: Comment Normal [facility] Comment on above: Result Comment: Tiny Rutledge, Supervisory Briar Cutter (ASCP) Performed at: WB Performed By: #### 4 [id number] #### [facility] [address] [place] [address] [facility] Spec[facility] adequacy: Comment Normal [facility] Comment on above: Result Comment: Sati sfactory for evaluation. No endocervical cells are present. This is consistent with a history of hysterectomy. Performed at: WB Performed By: #### 4 [id number] #### [facility] [address] [place] [address] Eusebio Remedios . . Normal [facility] Comment on above: Result Comment: Perf ormed at: WB Performed By: #### 4 [id number] #### [facility] [address] [place] [address] Eusebio Remedios CNOVSPon 06-10-2018 CNOVSP [facility]SP[facility] SHANTAL MESSINA ([id number]) 1975 F Date Time Provider Department 06/10/18 [...] of bleeding or clotting etc. Shantal Messina ([id number]) Female [address] + CBC ? ? (FOR REMOTE [facility] USE) Order: [id number] Status: Final result ??Visible to patient: No [...] Other Results from 05/23/2018 PROTHROMBIN TIME/PT Order: [id number] Status: Final result ??Visible to patient: No [...] with VKA drugs, such as warfarin, the [place] [employer] 2012 Guideline recommends [...] 2.5 to 3.5 (target INR of 3). Guyatt GH, et al. Chest 2012, 141:7S-47S Gilberto RA, et al. [facility] 2017, 70: 252-289 Resulting Agency [facility] Specimen Collected: 05/23/18 10:55 AM Last Resulted: 05/23/18 11:36 AM Lab Flowsheet Order Details View Encounter Lab and Collection Details Routing Result History ACTIVATED PTT Order: [id number] Status: Final result ??Visible to patient: No [...] laboratory APTT reagent in use throughout the [facility]. Resulting Agency [facility] Specimen Collected: 05/23/18 10:55 AM Last Resulted: 05/23/18 11:36 AM Lab Flowsheet Order Details View Encounter Lab and Collection Details Routing Result History PLATELET AGGREGATION PANEL Order: [id number] Status: Final result ??Visible to patient: No [...] be seen in normal individuals. Resulting Agency [facility] Specimen Collected: 05/23/18 10:55 AM Last Resulted: 05/24/18 ?5:40 PM Lab Flowsheet Order Details View Encounter Lab and Collection Details Routing Result History VITAMIN B12 BLOOD Order: [id number] Status: Final result ??Visible to patient: No (Not Released) Next appt: 01/12/2019 at 03:45 PM in [facility] (Justus Bailey MD) Dx: Thrombocytopenia (HCC); Abnormal weig... Ref Range AND Units 2wk ago Vitamin B12 232 - 1,245 pg/mL 588 Resulting Agency [facility] Specimen Collected: 05/23/18 10:55 AM Last Resulted: 05/23/18 ?8:40 PM Lab Flowsheet Order Details View Encounter Lab and Collection Details Routing Result History METHYLMALONIC ACID Order: [id number] Status: Final result ??Visible to patient: No (Not Released) Next appt: 01/12/2019 at 03:45 PM in [facility] (Justus Bailey MD) Dx: Thrombocytopenia (HCC); Abnormal weig... Ref Range AND Units 2wk ago MMA 79 - 376 nmol/L 100 Comment: This test was developed and its performance characteristics determined by [facility]'s [facility]ology [facility] Laboratory Medicine [employer] ([facility]). It has not been cleared or approved by the FDA. [facility] is regulated under CLIA as qualified to perform high-complexity testing. This test is used for clinical purposes. It should not be regarded as investigational or for research. Resulting Agency [facility] Specimen Collected: 05/23/18 10:55 AM Last Resulted: 05/25/18 ?8:47 AM Lab Flowsheet Order Details View Encounter Lab and Collection Details Routing Result History FOLATE SERUM Order: [id number] Status: Final result ??Visible to patient: No (Not Released) Next appt: 01/12/2019 at 03:45 PM in [facility] (Justus Bailey MD) Dx: Thrombocytopenia (HCC); Abnormal weig... Ref Range AND Units 2wk ago Folate >4.7 ng/mL 13.5 Resulting Agency [facility] Specimen Collected: 05/23/18 10:55 AM Last Resulted: 05/23/18 ?8:40 PM Lab Flowsheet Order Details View Encounter Lab and Collection Details Routing Result History TSH BLD Order: [id number] Status: Final result ??Visible to patient: No (Not Released) Next appt: 01/12/2019 at 03:45 PM in [facility] (Justus Bailey MD) Dx: Thrombocytopenia (HCC); Abnormal weig... Ref Range AND Units 2wk ago TSH 0.400 - 5.500 uU/mL 2.160 Comment: If the patient is , TSH reference range varies by gestational period: First Trimester ? ?0.100-2.500 uU/mL Second Trimester ? 0.200-3.000 uU/mL Third Trimester ? ?0.300-3.000 uU/mL References: 1. Garcia, Angie M, Messi AGUILAR, et al. Management of Thyroid Dysfunction during and : An Endocrine Society Clinical Practice Guideline. J Clin Endocrinol Metab, 2012:97:3180-8310. 2. Patrick STONER. Overview of thyroid disease in . UpToDate. 2016. Accessed on ?November 22, 2015. Resulting Agency [facility] Specimen Collected: 05/23/18 10:55 AM Last Resulted: 05/23/18 ?5:59 PM Lab Flowsheet Order Details View Encounter Lab and Collection Details Routing Result History HEPATIC FUNCTION PNL Order: [id number] Status: Final result ??Visible to patient: No [...] Routing Result History BASIC METABOLIC PNL Order: [id number] Status: Final result ??Visible to patient: No (Not Released) Next appt: 01/12/2019 at 03:45 PM in [facility] (Justus Bailey MD) Dx: Thrombocytopenia (HCC); Abnormal weig... Ref Range AND Units 2wk ago Glucose 74 - 99 mg/dL 86 Comment: The [place] Diabetes [employer] (ADA) provides guidance for cutoff [...] Standards of Medical Care in Diabetes 2016, [place] [employer]. Diabetes Care. 2016.39(Suppl 1). BUN [...] Result History HIV 1,2 COMBO (AG/AB) Order: [id number] Status: Final result ??Visible to patient: No (Not Released) Next appt: 01/12/2019 at 03:45 PM in [facility] (Justus Bailey MD) Dx: Thrombocytopenia (HCC); Abnormal weig... Ref Range AND Units 2wk ago HIV 12 Combo (Ag/Ab) Non Reactive Non Reactive Comment: (NOTE) HIV Information: ?[place] Rev. Code 3701.243(E): This information has been [...] Collection Details Routing Result History SED RATE LINUSERGREN Order: [id number] Status: Final result ??Visible to patient: No [...] Result History KAUSHIK BY IFA SCREEN Order: [id number] Status: Final result ??Visible to patient: No [...] BLOOD Collected: 05/23/2018 10:56 AM Resulting Agency: [facility] Result Information Flag: Abnormal Status: Final result (Resulted: 05/23/2018 ?2:56 PM) Provider Status: Reviewed Patient Release Status: This result is not viewable by the patient. Routing History Priority Sent On From To Message Type 05/23/2018 11:37 AM , Lab [facility] Justus Bailey Results View Smartlink Info ABS GRAN CT + CBC ? ? (FOR REMOTE [facility] USE) (Order #[id number]) on 05/23/18 Order Report Order Details Current Outpatient Prescriptions: PREMARIN 0.9 mg tablet TAKE 1 TABLET BY MOUTH EVERYDAY AT BEDTIME No current facility-administere d medications for this visit. ALLERGIES Allergen Reactions [...] disturbance, mood disorder and recent psychosocial stressors. HEMATOLOGY/LYMPHOLOG Y: Negative for prolonged bleeding, bruising easily or [...] ABS GRAN CT + CBC (FOR REMOTE [facility] USE) Justus Bailey MD Referring Provider: ANTONIA TORRES [[id number]] Allergies As of Date: 06/10/2018 Noted Allergy Reaction MORPHINE 05/10/2018 4 - Hives Date Reviewed: 06/10/2018 Reviewed by: Mela Alfaro - Fully Assessed Reason for Visit: Thrombocytopenia [603] Cmt: 4 week follow up Primary Visit Diagnosis:Thrombocyt openia (HCC) [D69.6] Order(s):[facility] DX PANEL [SQVWFPN] Order #: [id number] FUTURE ABS GRAN CT + CBC (FOR REMOTE [facility] USE) [SQRAGCBC] Order #: [id number] FUTURE Disposition: Return in about 8 months [...] by JUSTUS BAILEY MD on 06/10/18 Normal [facility] PROGRESSon 06-10-2018 Protein mass conc HNO ID: [id number] Author: Justus Bailey Service: (none) Author Type: Physician Type: Progress Notes Filed: 06/10/2018 12:45 PM Note Text: KAREN Shantal Messina is a 42 year old [...] family history of bleeding or clotting etc. EusebioShantal bhandari ([id number]) Female [address] + CBC ? ? (FOR REMOTE [facility] USE) Order: [id number] Status: Final result ??Visible to patient: No [...] Other Results from 05/23/2018 PROTHROMBIN TIME/PT Order: [id number] Status: Final result ??Visible to patient: No [...] with VKA drugs, such as warfarin, the [place] [employer] 2012 Guideline recommends [...] Chest 2012, 141:7S-47S Gilberto RA, et al. [facility] 2017, 70: 252-289 Resulting Agency [facility] Specimen Collected: 05/23/18 10:55 AM Last Resulted: 05/23/18 11:36 AM Lab Flowsheet Order Details View Encounter Lab and Collection Details Routing Result History ACTIVATED PTT Order: [id number] Status: Final result ??Visible to patient: No [...] laboratory APTT reagent in use throughout the [facility]. Resulting Agency [facility] Specimen Collected: 05/23/18 10:55 AM Last Resulted: 05/23/18 11:36 AM Lab Flowsheet Order Details View Encounter Lab and Collection Details Routing Result History PLATELET AGGREGATION PANEL Order: [id number] Status: Final result ??Visible to patient: No [...] be seen in normal individuals. Resulting Agency [facility] Specimen Collected: 05/23/18 10:55 AM Last Resulted: 05/24/18 ?5:40 PM Lab Flowsheet Order Details View Encounter Lab and Collection Details Routing Result History VITAMIN B12 BLOOD Order: [id number] Status: Final result ??Visible to patient: No (Not Released) Next appt: 01/12/2019 at 03:45 PM in [place] (Justus Bailey MD) Dx: Thrombocytopenia (HCC); Abnormal weig... Ref Range AND Units 2wk ago Vitamin B12 232 - 1,245 pg/mL 588 Resulting Agency [facility] Specimen Collected: 05/23/18 10:55 AM Last Resulted: 05/23/18 ?8:40 PM Lab Flowsheet Order Details View Encounter Lab and Collection Details Routing Result History METHYLMALONIC ACID Order: [id number] Status: Final result ??Visible to patient: No (Not Released) Next appt: 01/12/2019 at 03:45 PM in [place] (Justus Bailey MD) Dx: Thrombocytopenia (HCC); Abnormal weig... Ref Range AND Units 2wk ago MMA 79 - 376 nmol/L 100 Comment: This test was developed and its performance characteristics determined by [facility]'s [facility] Pathology and Laboratory Medicine [facility] (-PLMI). It has not been cleared or approved by the FDA. -[facility] is regulated under CLIA as qualified to perform high-complexity testing. This test is used for clinical purposes. It should not be regarded as investigational or for research. Resulting Agency [facility] Specimen Collected: 05/23/18 10:55 AM Last Resulted: 05/25/18 ?8:47 AM Lab Flowsheet Order Details View Encounter Lab and Collection Details Routing Result History FOLATE SERUM Order: [id number] Status: Final result ??Visible to patient: No [...] Details Routing Result History TSH BLD Order: [id number] Status: Final result ??Visible to patient: No [...] Clinical Practice Guideline. J Clin Endocrinol Metab, 2012:97:0783-5687. 2. Patrick DS. Overview of thyroid disease in . UpToDate. 2016. Accessed on ?November 22, 2015. Resulting Agency [facility] Specimen Collected: 05/23/18 10:55 AM Last Resulted: 05/23/18 ?5:59 PM Lab Flowsheet Order Details View Encounter Lab and Collection Details Routing Result History HEPATIC FUNCTION PNL Order: [id number] Status: Final result ??Visible to patient: No [...] 6.3 - 8.0 g/dL 7.5 Resulting Agency [facility] Specimen Collected: 05/23/18 10:55 AM Last Resulted: 05/23/18 11:41 AM Lab Flowsheet Order Details View Encounter Lab and Collection Details Routing Result History BASIC METABOLIC PNL Order: [id number] Status: Final result ??Visible to patient: No (Not Released) Next appt: 01/12/2019 at 03:45 PM in [place] (Justus Bailey MD) Dx: Thrombocytopenia (HCC); Abnormal weig... Ref Range AND Units 2wk ago Glucose 74 - 99 mg/dL 86 Comment: The [place] Diabetes Association (ADA) provides guidance for cutoff [...] Standards of Medical Care in Diabetes 2016, [place] [employer]. Diabetes Care. 2016.39(Suppl 1). BUN [...] may not accurately reflect actual GFR. Resulting [place] [facility] Specimen Collected: 05/23/18 10:55 AM Last Resulted: 05/23/18 11:41 AM Lab Flowsheet Order Details View Encounter Lab and Collection Details Routing Result History HIV 1,2 COMBO (AG/AB) Order: [id number] Status: Final result ??Visible to patient: No (Not Released) Next appt: 01/12/2019 at 03:45 PM in [place] (Justus Bailey MD) Dx: Thrombocytopenia (HCC); Abnormal weig... Ref Range AND Units 2wk ago HIV 12 Combo (Ag/Ab) Non Reactive Non Reactive Comment: (NOTE) HIV Information: ?[place] Rev. Code 3701.243(E): This information has been [...] HIV test results or diagnoses. Resulting Agency [facility] Specimen Collected: 05/23/18 10:55 AM Last Resulted: 05/23/18 ?7:23 PM Lab Flowsheet Order Details View Encounter Lab and Collection Details Routing Result History SED RATE WESTERGREN Order: [id number] Status: Final result ??Visible to patient: No (Not Released) Next appt: 01/12/2019 at 03:45 PM in [place] (Justus Bailey MD) Dx: Thrombocytopenia (HCC); Abnormal weig... Ref Range AND Units 2wk ago WSR 0 - 20 mm/hr 12 Resulting Agency [facility] Specimen Collected: 05/23/18 10:55 AM Last Resulted: 05/23/18 ?5:47 PM Lab Flowsheet Order Details View Encounter Lab and Collection Details Routing Result History KAUSHIK BY IFA SCREEN Order: [id number] Status: Final result ??Visible to patient: No [...] BLOOD Collected: 05/23/2018 10:56 AM Resulting Agency: [facility] Result Information Flag: Abnormal Status: Final result (Resulted: 05/23/2018 ?2:56 PM) Provider Status: Reviewed Patient Release Status: This result is not viewable by the patient. Routing History Priority Sent On From To Message Type 05/23/2018 11:37 AM , Lab Randall Oru In Justus Bailey Results View [facility] Info ABS GRAN CT + CBC ? ? (FOR REMOTE [facility] USE) (Order #[id number]) on 05/23/18 Order Report Order Details Current Outpatient Prescriptions: PREMARIN 0.9 mg tablet TAKE 1 TABLET BY MOUTH EVERYDAY AT BEDTIME No current facility-administere d medications for this visit. ALLERGIES Allergen Reactions [...] disturbance, mood disorder and recent psychosocial stressors. HEMATOLOGY/LYMPHOLOG Y: Negative for prolonged bleeding, bruising easily or [...] ABS GRAN CT + CBC (FOR REMOTE [facility] USE) Justus Bailey MD Normal [facility] KAUSHIK by Maxime 05-23-2018 KAUSHIK Pattern Negative Normal [facility] Comment on above: Performed By: #### W SR, TSH, HIV12C, B12, SERFOL, ANAIFS, MMA ####[facility], [place] [phone] KAUSHIK Titer Negative Normal Negative [facility] Comment on above: Result Comment: Norm al range : negative at <1:80 serum dilution. Performed By: #### W SR, TSH, HIV12C, B12, SERFOL, ANAIFS, MMA ####[facility] [place], [place] [phone] Nuclear Ab IF titer (S) Negative Normal Negative [facility] Comment on above: Result Comment: Norm al range : negative at <1:80 serum dilution. Approximately 6% of patients with connective tissue diseases with low positive EIA values are negative by IFA. Recommend follow-up with specific antinuclear antibodies if clinically indicated. Performed By: #### W SR, TSH, HIV12C, B12, SERFOL, ANAIFS, MMA ####[facility] [place], [place] [phone] APTTon 05-23-2018 aPTT Coag time (Bld) 26.7 s Normal 23.0-32.4 [facility] Comment on above: Result Comment: Unfr [...] laboratory APTT reagent in use throughout the [facility]. Performed By: #### W SR, TSH, HIV12C, B12, SERFOL, ANAIFS, MMA #### [facility] [address] [place], [place] [address] Basic Metabolic Panlon 05-23 Anion gap molar conc 12 mmol/L Normal -18 [facility] Comment on above: Performed By: #### W SR, TSH, HIV12C, B12, SERFOL, ANAIFS, MMA #### [facility] [address], [place] [address] Calcium mass conc 9.6 mg/dL Normal 8.6-10.0 [facility] Comment on above: Performed By: #### W SR, TSH, HIV12C, B12, SERFOL, ANAIFS, MMA #### [facility] [address] [place] [address] Chloride molar conc 104 mmol/L Normal 97-105 [facility] Comment on above: Performed By: #### W SR, TSH, HIV12C, B12, SERFOL, ANAIFS, MMA #### [facility] [address] [place] [phone] CO2 molar conc 25 mmol/L Normal 22-30 [facility] Comment on above: Performed By: #### W SR, TSH, HIV12C, B12, SERFOL, ANAIFS, MMA #### [facility] [address] [place] [phone] Creatinine mass conc 0.70 mg/dL Normal 0.58-0.96 [facility] Comment on above: Performed By: #### W SR, TSH, HIV12C, B12, SERFOL, ANAIFS, MMA #### [facility] [address] [place] [phone] eGFR- Amer. >60 Normal [facility] Comment on above: Performed By: #### W SR, TSH, HIV12C, B12, SERFOL, ANAIFS, MMA #### [facility] [address] [place] [phone] GFR/1.73 sq M predicted among non-blacks MDRD vol rate/area (S/P/Bld) mL/min/{1.73_m2} Normal [facility] Comment on above: Result Comment: eGFR (Estimated [...] TSH, HIV12C, B12, SERFOL, ANAIFS, MMA #### [facility] [address] [place] [address] Glucose mass conc 86 mg/dL Normal 74-99 [facility] Comment on above: Result Comment: The [place] Diabetes Association (ADA) provides guidance for cutoff [...] Standards of Medical Care in Diabetes 2016, [place] [employer]. Diabetes Care. 2016.39(Suppl 1). Performed By: #### W SR, TSH, HIV12C, B12, SERFOL, ANAIFS, MMA #### [facility] [address] [place] [address] Potassium molar conc 4.3 mmol/L Normal 3.7-5.1 [facility] Comment on above: Performed By: #### W SR, TSH, HIV12C, B12, SERFOL, ANAIFS, MMA #### [facility] [address] [place] [address] Sodium molar conc 141 mmol/L Normal 136-144 [facility] Comment on above: Performed By: #### W SR, TSH, HIV12C, B12, SERFOL, ANAIFS, MMA #### [facility] [address] [place] [address] Urea nitrogen mass conc 12 mg/dL Normal 7-21 [facility] Comment on above: Performed By: #### W SR, TSH, HIV12C, B12, SERFOL, ANAIFS, MMA #### [facility] [address] [place] [address] Folate, Serumon 05-23-2018 Folate mass conc 13.5 ng/mL Normal >4.7 [facility] Comment on above: Performed By: #### W SR, TSH, HIV12C, B12, SERFOL, ANAIFS, MMA ####[facility] [place], [place] [phone] HIV 12 Combo (Ag/Ab)on 05-23 HIV 12 Ag/Ab Non Reactive Normal Non Reactive [facility] Comment on above: Result Comment: (NOT E) HIV Information: [place] Rev. Code 3701.243(E): This information has been [...] TSH, HIV12C, B12, SERFOL, ANAIFS, MMA #### [place] [address] [place] [address] Hepatic Functn Panelon 05-23 Albumin mass conc 4.6 g/dL Normal 3.9-4.9 [facility] Comment on above: Performed By: #### W SR, TSH, HIV12C, B12, SERFOL, ANAIFS, MMA #### [place] [address] [place] [address] ALP enzyme act/vol 106 U/L Normal 34-123 [facility] Comment on above: Performed By: #### W SR, TSH, HIV12C, B12, SERFOL, ANAIFS, MMA #### [facility] [address] [place] [address] ALT enzyme act/vol 15 U/L Normal 7-38 [facility] Comment on above: Performed By: #### W SR, TSH, HIV12C, B12, SERFOL, ANAIFS, MMA #### [facility] [address] [place] [address] AST enzyme act/vol 16 U/L Normal 13-35 [facility] Comment on above: Performed By: #### W SR, TSH, HIV12C, B12, SERFOL, ANAIFS, MMA #### [place] [address] Bilirubin mass conc 0.2 mg/dL Normal 0.2-1.3 [facility] Comment on above: Performed By: #### W SR, TSH, HIV12C, B12, SERFOL, ANAIFS, MMA #### [place] [address] [place] [address] Bilirubin,Conjugated <0.2 Normal <0.2 [facility] Comment on above: Performed By: #### W SR, TSH, HIV12C, B12, SERFOL, ANAIFS, MMA #### [place] [address] Protein mass conc 7.5 g/dL Normal 6.3-8.0 [facility] Comment on above: Performed By: #### W SR, TSH, HIV12C, B12, SERFOL, ANAIFS, MMA #### [place] [address] [place] [address] Methylmalonic Acidon 12-17-2 018 Methylmalonic Acid 100 nmol/L Normal 79-376 [facility] Comment on above: Result Comment: This test was developed and its performance characteristics determined by [facility]'s [facility] (RT-PLMI). It has not been cleared or approved by the FDA. -[facility] is regulated under CLIA as qualified to perform high-complexity testing. This test is used for clinical purposes. It should not be regarded as investigational or for research. Performed By: #### W SR, TSH, HIV12C, B12, SERFOL, ANAIFS, MMA ####[address] [phone] Platelet Aggr. Panelon 05-23 ADP 20 Max Aggreg 76 % Max Normal 70-100 [facility] Comment on above: Performed By: #### A GGPLP ####[address] [phone] ADP Max Aggreg 86 % Max Normal 70-100 [facility] Comment on above: Performed By: #### A GGPLP ####[address] [phone] Arach Max Aggreg 93 % Max Normal 66-100 [facility] Comment on above: Performed By: #### A GGPLP ####[address] [phone] ATP Rel by ADP 0.3 nM Normal 0.2-1.6 [facility] Comment on above: Performed By: #### A GGPLP ####[address] [phone] ATP Rel by ADP 20 0.5 nM Normal 0.2-1.6 [facility] Comment on above: Performed By: #### A GGPLP ####[address] [phone] ATP Rel by Aracha 0.7 nM Normal 0-1.3 [facility] Comment on above: Performed By: #### A GGPLP ####[address] [phone] ATP Rel by Collagen 0.4 nM Normal 0.4-1.9 [facility] Comment on above: Performed By: #### A GGPLP ####[place] [phone] ATP Rel by EPI 100 0.3 nM Normal 0.3-1.7 [facility] Comment on above: Performed By: #### A GGPLP ####[place] [phone] ATP Rel by Epineph 0.0 nM Low 0.3-1.7 [facility] Comment on above: Performed By: #### A GGPLP ####[place] [phone] Collagen Max Aggreg 79 % Max Normal 70-100 [facility] Comment on above: Performed By: #### A GGPLP ####[place] [phone] Epin 100 Max Aggreg 84 % Max Normal 67-95 [facility] Comment on above: Performed By: #### A GGPLP ####[place] [phone] Epin Max Aggreg 16 % Max Low 67-95 [facility] Comment on above: Performed By: #### A GGPLP ####[place] [phone] Plt Aggreg Interp (NOTE) Normal [facility] Comment on above: Result Comment: Perf orming [...] normal individuals. Performed By: #### A GGPLP ####[place] [phone] Risto 1200 Max Agg 81 % Max Normal 68-100 [facility] Comment on above: Performed By: #### A GGPLP ####[place] [phone] Risto 1500 Max Agg 86 % Max Normal 75-100 [facility] Comment on above: Performed By: #### A GGPLP ####[place] [phone] Risto 600 Max Agg 5 % Max Normal 0-26 [facility] Comment on above: Performed By: #### A GGPLP ####[place] [phone] Risto 900 Max Agg 86 % Max Normal 0-90 [facility] Comment on above: Performed By: #### A GGPLP ####[place] [phone] Protimeon 05-23-2018 Prothrombin time (PT) Coag time (PPP) 9.3 s Low 9.7-13.0 [facility] Comment on above: Performed By: #### W SR, TSH, HIV12C, B12, SERFOL, ANAIFS, MMA #### [facility] [address] [place] [phone] Prothrombin time (PT) Coag time (PPP) s Low 0.9-1.3 [facility] Comment on above: Result Comment: Adriana min K Antagonist (VKA) Therapeutic Range: INR 2 to 3 (Target INR of 2.5) Note: For patients treated with VKA drugs, such as warfarin, the [place] [employer]icians 2012 Guideline recommends [...] Chest 2012, 141:7S-47S Gilberto RA, et al. [facility] 2017, 70: 252-289 Performed By: #### W SR, TSH, HIV12C, B12, SERFOL, ANAIFS, MMA #### [facility] [address] [place] [phone] Remote Abs Gran + CBC (for [facility] use only)on 05-23-2018 Absol Gran Count 2.03 k/uL Normal 1.45-7.50 [facility] Comment on above: Performed By: #### R AGCBC ####[facility] [address] [place], [place] [phone] Absolute nRBC <0.01 Normal <0.01 [facility] Comment on above: Performed By: #### R AGCBC ####[facility] [address] [place], [place] [phone] Erythrocyte distribution width Ratio (RBC) 13.4 % Normal 11.5-15.0 [facility] Comment on above: Performed By: #### R AGCBC ####[place] [address] [place], [place] [phone] Hematocrit Volume Fraction (Bld) 40.4 % Normal 36.0-46.0 [facility] Comment on above: Performed By: #### R AGCBC ####[address] [phone] Hemoglobin mass conc (Bld) 13.6 g/dL Normal 11.5-15.5 [facility] Comment on above: Performed By: #### R AGCBC ####[address] [phone] MCH Entitic mass (RBC) 35.5 pG High 26.0-34.0 [facility] Comment on above: Performed By: #### R AGCBC ####[address] [phone] MCHC mass conc (RBC) 33.7 g/dL Normal 30.5-36.0 [facility] Comment on above: Performed By: #### R AGCBC ####[address] [phone] MCV Entitic volume (RBC) 105.5 fL High 80.0-100.0 [facility] Comment on above: Performed By: #### R AGCBC ####[address] [phone] Platelet mean volume Entitic volume (Bld) 9.7 fL Normal 9.0-12.7 [facility] Comment on above: Performed By: #### R AGCBC ####[address] [phone] Platelets #/vol (Bld) 145 10*3/uL Low 150-400 [facility] Comment on above: Performed By: #### R AGCBC ####[address] [phone] RBC #/vol (Bld) 3.83 10*6/uL Low 3.90-5.20 [facility] Comment on above: Performed By: #### R AGCBC ####[facility] [place], [place] [phone] WBC #/vol (Bld) 3.89 10*3/uL Normal 3.70-11.00 [facility] Comment on above: Performed By: #### R AGCBC ####[facility] [place], [place] [phone] Sed Rate Westergrenon 2017 Sed Rate Westergren 12 mm/hr Normal 0-20 [facility] Comment on above: Performed By: #### W SR, TSH, HIV12C, B12, SERFOL, ANAIFS, MMA #### [facility] [address] [place], [place] [address] TSHon 05-23-2018 Thyrotropin Qn 2.160 uU/mL Normal 0.400-5.500 [facility] Comment on above: Result Comment: If t he patient is , TSH reference range varies by gestational period: First Trimester 0.100-2.500 uU/mL Second Trimester 0.200-3.000 uU/mL Third Trimester 0.300-3.000 uU/mL References: 1. Everett L, Angie M, Messi EK, et al. Management of Thyroid Dysfunction during and : An Endocrine Society Clinical Practice Guideline. J Clin Endocrinol Metab, 2012:97:4034-4930. 2. Patrick STONER. Overview of thyroid disease in . UpToDate. 2016. Accessed on November 22, 2015. Performed By: #### W SR, TSH, HIV12C, B12, SERFOL, ANAIFS, MMA #### [facility] [address] [place], [place] [address] Vitamin B12on 05-23-2018 Cobalamin (Vitamin B12) mass conc 588 pg/mL Normal 232-1245 [facility] Comment on above: Performed By: #### W SR, TSH, HIV12C, B12, SERFOL, ANAIFS, MMA ####[facility] [address] [place], [place] [phone] CNCOon 05-13-2018 CNCO Letter Text Dear Shantal Messina: How to activate your [facility] Button Account 1. Visit the Button Signup page at [email or web address] 2. Identify yourself using your one-time use activation code: [email or web address] 3. Follow the on-screen prompts to choose [...] information on the Identify Yourself Form at [email or web address] , click Next. Create your login and password, choose a Button ID and password that will be easy for you to use, but impossible for anyone else to guess. Pick a security question that will assist you in the event you forget your password the next time you log-on. If you have difficulty activating your account, please call our Button helpline at [phone] or toll free at . We hope you enjoy using Button! Kindest Regards, [facility] Button Team Normal [facility] CNOVSPon 05-13-2018 CNOVSP Visit (SP) Office ([place]) SHANTAL MESSINA ([id number]) 1975 F Date Time Provider Department 05/13/18 [...] BY MOUTH EVERYDAY AT BEDTIME No current facility-administere d medications for this visit. ALLERGIES Allergen Reactions [...] disturbance, mood disorder and recent psychosocial stressors. HEMATOLOGY/LYMPHOLOG Y: Negative for prolonged bleeding, bruising easily or [...] Justus Bailey MD Referring Provider: FADUMO FULLER [[id number]] Allergies As of Date: 05/13/2018 Noted Allergy Reaction MORPHINE 05/10/2018 4 - Hives Date Reviewed: 05/13/2018 Reviewed by: Mela Alfaro - Fully Assessed Reason for Visit: Thrombocytopenia [603] Cmt: New patient consultation Primary Visit Diagnosis:Thrombocyt openia (HCC) [D69.6] Other Visit Diagnoses:S/P PHILLY-BSO [Z90.710, Z90.722, Z90.79] Abnormal weight loss [R63.4] Order(s):ABS GRAN CT + CBC (FOR REMOTE [facility] USE) [SQRAGCBC] Order #: [id number] FUTURE PROTHROMBIN TIME/PT [SQPT] Order #: [id number] FUTURE ACTIVATED PTT [SQPTT] Order #: [id number] FUTURE PLATELET AGGREGATION PANEL [SQAGGPLP] Order #: [id number] FUTURE VITAMIN B12 BLOOD [SQB12] Order #: [id number] FUTURE METHYLMALONIC ACID [SQMMA] Order #: [id number] FUTURE FOLATE SERUM [SQSERFOL] Order #: [id number] FUTURE TSH BLD [SQTSH] Order #: [id number] FUTURE HEPATIC FUNCTION PNL [SQHFP] Order #: [id number] FUTURE BASIC METABOLIC PNL [SQBMP] Order #: [id number] FUTURE HIV 1,2 COMBO (AG/AB) [SQHIV12] Order #: [id number] FUTURE SED RATE WESTERGREN [SQWSR] Order #: [id number] FUTURE KAUSHIK BY IFA SCREEN [SQANAIFS] Order #: [id number] FUTURE Disposition: Return in about 4 weeks [...] by JUSTUS BAILEY MD on 05/13/18 Normal [facility] PROGRESSon 05-13-2018 Protein mass conc HNO ID: [id number] Author: Justus Bailey Service: (none) Author Type: [...] BY MOUTH EVERYDAY AT BEDTIME No current facility-administere d medications for this visit. ALLERGIES Allergen Reactions [...] disturbance, mood disorder and recent psychosocial stressors. HEMATOLOGY/LYMPHOLOG Y: Negative for prolonged bleeding, bruising easily or [...] ABS GRAN CT + CBC (FOR REMOTE [facility] USE) - PROTHROMBIN TIME/PT - ACTIVATED PTT [...] BY IFA SCREEN Justus Bailey MD Normal [facility] Vital Signs Date Time Vital Sign Value Performing Clinician Facility 02-20-2025 13:41-0400 Body height 172.72 cm Antonia Torres MD Work Phone: [facility] 02-20-2025 13:41-0400 Body mass index (BMI) [Ratio] 19.9 kg/m2 Antonia Torres MD Work Phone: [facility] 02-20-2025 13:41-0400 Body weight 59.42 kg Antonia Torres MD Work Phone: [facility] 02-20-2025 13:41-0400 Diastolic blood pressure 82 mm[Hg] Antonia Torres MD Work Phone: [facility] 02-20-2025 13:41-0400 Heart rate 86 /min Antonia Torres MD Work Phone: [facility] 02-20-2025 13:41-0400 Systolic blood pressure 140 mm[Hg] Antonia Torres MD Work Phone: [facility] 01-29-2025 15:30-0400 Body height 172.7 cm Fadumo Jonny DO Work Phone: [facility] 01-29-2025 15:30-0400 Body mass index (BMI) [Ratio] 19.92 kg/m2 Fadumo Jonny DO Work Phone: [facility] 01-29-2025 15:30-0400 Body weight 59.42 kg Fadumo Jonny DO Work Phone: [facility] 01-29-2025 15:30-0400 Diastolic blood pressure 72 mm[Hg] Fadumo Jonny DO Work Phone: [facility] 01-29-2025 15:30-0400 Systolic blood pressure 120 mm[Hg] Fadumo Jonny DO Work Phone: [facility] 03-09-2024 13:19-0400 Body height 172.72 cm [facility] 03-09-2024 13:19-0400 Body mass index (BMI) [Ratio] 20.9 kg/m2 [facility] 03-09-2024 13:19-0400 Body weight 62.59 kg [facility] 03-09-2024 13:19-0400 Diastolic blood pressure 82 mm[Hg] [facility] 03-09-2024 13:19-0400 Heart rate 93 /min [facility] 03-09-2024 13:19-0400 Respiratory rate 16 /min [facility] 03-09-2024 13:19-0400 SaO2% (BldA) [Mass fraction] 98 % [facility] 03-09-2024 13:19-0400 Systolic blood pressure 118 mm[Hg] [facility] 01-24-2024 15:06-0400 Body mass index (BMI) [Ratio] 20.44 kg/m2 Fadumo Jonny DO Work Phone: [facility] 01-24-2024 15:06-0400 Body weight 60.96 kg Fadumo Jonny DO Work Phone: [facility] 01-24-2024 15:06-0400 Diastolic blood pressure 70 mm[Hg] Fadumo Jonny DO Work Phone: [facility] 01-24-2024 15:06-0400 Systolic blood pressure 120 mm[Hg] Fadumo Jonny DO Work Phone: [facility] 10-14-2023 13:45-0400 Body height 172.72 cm [facility] 10-14-2023 13:45-0400 Body mass index (BMI) [Ratio] 20.5 kg/m2 [facility] 10-14-2023 13:45-0400 Body weight 61.23 kg [facility] 10-14-2023 13:45-0400 Diastolic blood pressure 85 mm[Hg] [facility] 10-14-2023 13:45-0400 Heart rate 83 /min [facility] 10-14-2023 13:45-0400 Systolic blood pressure 133 mm[Hg] [facility] 10-01-2023 10:40-0400 Body height 172.72 cm [facility] 10-01-2023 10:40-0400 Body mass index (BMI) [Ratio] 22 kg/m2 [facility] 10-01-2023 10:40-0400 Body weight 65.77 kg [facility] 10-01-2023 10:40-0400 Diastolic blood pressure 87 mm[Hg] [facility] 10-01-2023 10:40-0400 Heart rate 81 /min [facility] 10-01-2023 10:40-0400 Systolic blood pressure 135 mm[Hg] [facility] Encounters Encounter Date Encounter Type Care Provider Facility Start: 02-20-2025 End: 02-20-2025 ambulatory Fadumo R JONNY Facility:[facility] Start: 02-20-2025 End: 02-20-2025 Patient encounter procedure Alirio BRANNON [facility] [place] Start: 02-20-2025 End: 02-20-2025 ambulatory Antonia Torres MD Work Phone: [facility] Work Phone: Start: 02-20-2025 End: 02-20-2025 Patient encounter procedure Antonia Torres MD -[facility] Work Phone: Start: 02-06-2025 ambulatory Fadumo JONNY Facility:[facility] Start: 01-29-2025 Non-patient / Non-visit Fadumo Jonny -[facility] Work Phone: Start: 01-29-2025 End: 01-29-2025 Patient encounter procedure Fadumo Jonny DO Work Phone: [facility] Start: 01-29-2025 End: 01-29-2025 Periodic preventive med est patient 40-64yrs Fadumo Jonny DO Work Phone: [facility] Comment on above: Well woman exam with routine gynecological exam; H/O: hysterectomy; Breast cancer screening by mammogram Start: 01-29-2025 End: 01-29-2025 ambulatory FADUMO JONNY Not Available Start: 01-29-2025 End: 01-29-2025 Bamboo flowsheet Fadumo Jonny DO Work Phone: [facility] Start: 01-29-2025 End: 02-01-2025 Bamboo flowsheet Fadumo Jonny DO Work Phone: [facility] Start: 01-29-2025 End: 02-01-2025 Clinisync Result Encounter Fadumo Jonny DO Work Phone: [facility] Unsolicited Start: 03-09-2024 End: 03-09-2024 ambulatory [facility] Work Phone: Start: 03-09-2024 End: 03-09-2024 Patient encounter procedure [facility] Work Phone: Start: 01-24-2024 End: 01-24-2024 Patient encounter procedure Fadumo Jonny DO Work Phone: [facility] Work Phone: Start: 01-24-2024 End: 01-24-2024 Periodic preventive med est patient 40-64yrs Fadumo Jonny DO Work Phone: [facility] Comment on above: Well woman exam with routine gynecological exam; Breast cancer screening by mammogram Start: 01-24-2024 End: 01-24-2024 Bamboo flowsheet Fadumo Jonny DO Work Phone: [facility] Start: 01-24-2024 End: 01-28-2024 Bamboo flowsheet Fadumo Jonny DO Work Phone: [facility] Start: 01-24-2024 End: 01-28-2024 Clinisync Result Encounter Fadumo Jonny DO Work Phone: [facility] Unsolicited Start: 10-14-2023 End: 10-14-2023 ambulatory [facility] Work Phone: Start: 10-14-2023 End: 10-14-2023 Patient encounter procedure [facility] Work Phone: Start: 10-01-2023 End: 10-01-2023 ambulatory [facility] Work Phone: Start: 10-01-2023 End: 10-01-2023 Patient encounter procedure [facility] Work Phone: Start: 03-25-2020 End: 03-25-2020 Patient encounter procedure FADUMO WATTERSO Facility: Start: 06-10-2018 End: 08-02-2018 Patient encounter procedure JUSTUS BAILEY [facility] Start: 05-23-2018 End: 05-24-2018 Patient encounter procedure JUSTUS BAILEY [facility] Start: 05-13-2018 End: 05-16-2018 [facility] Procedures Date Procedure Procedure Detail Performing Clinician Start: 01-29-2025 IGP,APTIMA HPV,AGE GDLN Fadumo Jonny DO Work Phone: Start: 01-24-2024 IGP,APTIMA HPV,AGE GDLN Fadumo Jonny DO Work Phone: Start: 01-24-2024 Cytp cerv/vag auto thin layer prep mnl screen Fadumo Jonny DO Work Phone: Start: 06-07-2007 Angioplasty of blood vessel Alirio BRANNON Esophagogastroduodenoscopy M ichlisandro BRANNON Excision of lumbar i ntervertebral disc Alirio RITESH H/O: hysterectomy H/O: hysterectomy Fadumo Jonny DO Work Phone: Total abdominal hyst erectomy with bilateral salpingo-oophorectomy Alirio BRANNON Plan of Treatment Date Care Activity Detail Author Start: 02-04-2026 End: 02-04-2026 Patient encounter procedure 02/04/2026 3:00 PM EDT Procedure Visit [facility] [address] [id number] Fadumo Fuller, DO [address] [place] [address] [facility] Start: 01-29-2025 End: 01-29-2025 Patient encounter procedure [facility] Comment on above: Arrived Start: 01-29-2025 End: 01-29-2026 MG Breast - bilateral Screening Bilateral screening mammogram Imaging Routine Breast cancer screening by mammogram Expected: 01/29/2025 (Approximate), Expires: 01/29/2026 [facility] Work Phone: Comment on above: Expected: 01/29/2025 (Approximate), Expires: 01/29/2026 Start: 01-24-2024 End: 08-19-2024 Patient encounter procedure 01/24/2024 3:00 PM EDT Office Visit [facility] [address] [address] Fadumo Fuller DO [address] [place] [address] Arrived [facility] Comment on above: Arrived Start: 01-24-2024 End: 03-25-2025 MG Breast - bilateral Screening Bilateral screening mammogram Imaging Routine Breast cancer screening by mammogram Expected: 01/24/2024 (Approximate), Expires: 03/25/2025 [facility] Work Phone: Comment on above: Expected: 01/24/2024 (Approximate), Expires: 03/25/2025 THIN PREP TIS PAP AN D HR HPV DNA THIN PREP TIS PAP AND HR HPV DNA Pathology and Cytology Routine Well woman exam with routine gynecological exam Ordered: 01/24/2024 [facility] Comment on above: Ordered: 01/24/2024 THIN PREP TIS PAP AN D HR HPV DNA THIN PREP TIS PAP AND HR HPV DNA Pathology and Cytology Routine Well woman exam with routine gynecological exam H/O: hysterectomy Ordered: 01/29/2025 [facility] Comment on above: Ordered: 01/29/2025 XR Cervical spine 5 Views [facility] Payers Date Payer Category Payer Private Health Insurance [id number] 2018 [facility] BCBS [id number] 2018 Unknown BCBS BCBS xxxxxx [id number] 2018-Present [phone] [address] [place] [address] [id number] 1977 Unknown [id number] 1977 Unknown [id number] 1977 Unknown [id number] 1959 Unknown [id number] Social History Date Type Detail Facility Start: 09-30-2023 Tobacco smoking stat NHIS Smoker (finding) [facility] Start: 1975 Sex Assigned At Female F [facility] Start: 01-15-2023 End: 09-30-2023 Tobacco smoking status OKIS Smokes tobacco daily [facility] History of tobacco use Cigarette Smoker [facility] Start: 01-24-2024 End: 01-29-2025 Alcoholic beverage intake Current drinker of alcohol (finding) [facility] Start: 01-24-2024 End: 01-29-2025 History of Social function [facility] Start: 01-24-2024 End: 01-29-2025 Tobacco use panel [facility] Start: 01-15-2023 Alcohol Comment 1-2 drinks 2-4 x a month in the past year, Caffeine intake: 3-4 cups per day [facility] Start: 1975 Sex assigned at Not on file [facility] Sex Female (finding) [facility] Start: 02-20-2025 Tobacco smoking status Heavy t obacco smoker (finding) [facility] [place] [facility] [place] Sexual Orientation [facility] Clinical Notes 01-24-2024 to 02-20-2025 Comfort Stapleton, OJHNNY - 01/29/2025 3:00 PM EDTSjose MadhuriMADI - 01/24/2024 3:00 PM EDT Note Date & Type Note Facility 02-20-2025 Note General Surgery Offi ce/Clinic Note Chief Complaint consultation for colonoscopy HPI Staff 49 year old female presents on consultation from Dr. Fuller for screening colonoscopy. Denies abdominal or rectal pain. No rectal bleeding or change in bowel habits. Denies nausea, vomiting or weight loss. Never had colonoscopy in the past. No known family history of colon cancer. History of Present Illness 49 yo female referred for screening colonoscopy; denies change in bms or blood in stools, no abd complaints; abd operations significant for PHILLY with BSO; no previous colonoscopy; no asa or NSAID use; smokes daily, daily marijuana use; no fmhx of GI malignancy or IBD. Review of Systems PHQ Score Initial Depression Screen Score: 0 SCORE ROS - Provider Constitutional: no fever, no sweats, no weight loss. Eyes: no glasses, no blurred vision, no visual loss. ENMT: no dentures, no hoarseness, no swallowing difficulties, no hearing loss, no ear infection(s), no nose bleeds. Cardiovascular: normal blood pressure, no chest pain, regular heartbeat, no heart murmur. Respiratory: no shortness of breath, no cough, no asthma, no wheezing. Gastrointestinal: no nausea, no vomiting, no diarrhea, no constipation, no blood in stool, no change in bowel habits, no abdominal pain, no hepatitis. Genitourinary: no kidney stones, no urine infection, no dysuria. Musculoskeletal: no pain, no weakness. Skin: no changing moles, no rash, no skin lumps. Neurologic: no seizures, no epilepsy, no headache. Psychiatric: no emotional or psychiatric problem. Heme/Lymph: no bleeding problems, no anemia, no blood clots, no transfusions. Allergy/Immunologic: no swollen lymph nodes/glands, no IV drug abuse. Other: Additional ROS info: Except as noted in the above Review of Systems and in the History of Present Illness, all other systems have been reviewed and are negative or noncontributory. Physical Exam Vitals & Measurements HR: 72(Peripheral) RR: 16 BP: 149/86 HT: 172.72 cm HT: 68 in WT: 60.2 kg WT: 132.718 lb BMI: 20.18 HEENT: normal conjunctiva, sclera clear, no scleral icterus, EOM intact, PERRLA, oral mucosa moist without lesions. Neck: trachea midline, no mass, symmetric, no thyromegaly or nodules, no adenopathy Respiratory: lungs CTA, respirations non labored. Cardiovascular: regular rate and rhythm, no murmur, no pedal edema or varicosities. Gastrointestinal: soft, non distended, no tenderness, no masses, no palpable hernias, diastasis recti no, no hepatosplenomegaly; normal bs Musculoskeletal: normal gait, digits and nails without infection, nodes, cyanosis, clubbing. Skin: no rashes, no lesions, no ulcers, no subcutaneous nodules, induration. Psychiatric/Neuro: oriented to time, place, person, judgement normal, affect appropriate for age, insight intact, no focal deficits. Tests: review of old records completed , Discussed surgical options, risks, and possible complications with patient. Assessment/Plan 1. Screening for malignant neoplasm of colon (Z12.11: Encounter for screening for malignant neoplasm of colon) plan colonoscopy under anesthesia, informed consent obtained. Follow-up No qualifying data available Problem List/Past Medical History Ongoing Allergic rhinitis Lumbar disc disease Screening for malignant neoplasm of colon Historical No qualifying data Procedure/Surgical History Angioplasty (2007), EGD - esophagogastroduodenoscopy, Lumbar discectomy, PHILLY BSO - Total abdominal hysterectomy and bilateral salpingo-oophorectomy. Medications Benadryl 25 mg Tab, 1 tab(s), Oral, Daily Premarin 0.9 mg Tab, 0.9 mg= 1 tab(s), Oral, Daily Allergies morphine (Hives) Social History Alcohol Current, Beer, Liquor, 3-5 times per week, 02/20/2025 Substance Abuse Current, Marijuana, Daily, 02/20/2025 Tobacco 10 or more cigarettes (1/2 pack or more)/day in last 30 days Tobacco Use:. Never Smokeless Tobacco Use:. Cigarettes, 0.75 per day. Started age 15.0 Years. Yes, 02/20/2025 Family History Hypertension: Father. [facility] Comment on above: Result Comment: Elec tronically Signed By: RITESH ARRIETA, Alirio Carrillo\Date and Time Signed: 02/20/25 15:29 EDT 01-29-2025 History of Present illness Narrative Reason for Appointment: Patient ID: Shantal Messina is a 49 y.o. female who presents for Gynecologic Exam Patient presents today for Annual Exam. MEDICATIONS Current Outpatient Medications Medication Instructions Premarin 0.9 mg, Oral, Nightly ALLERGIES Allergies Allergen Reactions Morphine Hives and Rash PROBLEMS Active Ambulatory Problems Diagnosis Date Noted Bilateral tinnitus 01/12/2023 Encounter for colorectal cancer screening 01/26/2024 Resolved Ambulatory Problems Diagnosis Date Noted No [...] SYSTEMS Review of Systems: Review of Systems Constitutional: Negative. HENT: Negative. Eyes: Negative. Respiratory: Negative. Cardiovascular: Negative. Gastrointestinal: Negative. Genitourinary: Negative. Musculoskeletal: Negative. Skin: Negative. Neurological: Negative. All other systems reviewed and are negative. Hematological: Negative. Endocrine: Negative. Allergic/Immunologic: Negative. OBJECTIVE Objective: Physical Exam Constitutional: Appearance: Normal appearance. She is well-developed. Genitourinary: Vulva normal. Breasts: Breasts are soft. Right: Normal. Left: [...] nursing note reviewed. Exam conducted with a special shopper present. Vitals: Estimated body mass index is 19.92 kg/m as calculated from the following: Height as of this encounter: 5' 8 . Weight as of this encounter: 131 lb. BP: 120/72 No LMP recorded (lmp unknown). Patient has had a hysterectomy. ASSESSMENT & PLAN ICD-10-CM 1. Well woman exam with routine gynecological exam Z01.419 THIN PREP TIS PAP AND HR HPV DNA 2. H/O: hysterectomy Z90.710 THIN PREP TIS PAP AND HR HPV DNA 3. Breast cancer screening by mammogram Z12.31 Bilateral screening mammogram Bilateral screening mammogram Annual Exam: Patient presents today for an annual exam. Patient states she is doing well and has no complaints. Pap was obtained without difficulty. Orders Placed This Encounter Procedures Bilateral screening mammogram Follow Up: Patient is to return in one year for annual unless needed otherwise. Will refer for screening colonoscopy with Dr Brannon Documented by Comfort Stapleton NP on behalf of: Fadumo Fuller DO documented in this encounter [facility] 01-24-2024 History of Present illness Narrative Reason for Appointment: Patient ID: [...] nursing note reviewed. Exam conducted with a special shopper present. 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 and was unsure if that could [...] Fadumo Fuller DO documented in this encounter [facility] Evaluation + Plan note No data available for this section [facility] Evaluation note No assessment inform ation available [facility] Work Phone: Evaluation note Diagnosis Onset Date Contact dermatitis acute Contact dermatitis acute [facility] Work Phone: Evaluation note* Diagnosis Onset Date Resolution Status Cervical radicular pain acut e [facility] Work Phone: Evaluation note* Diagnosis Well woman exam with routine gynecological exam Routine gynecological examination Breast cancer screening by mammogram documented in this encounter [facility] HealthcareEvaluation note* Diagnosis Well woman exam with routine gynecological exam Routine gynecological examination H/O: hysterectomy Acquired absence of both cervix and uterus Breast cancer screening by mammogram documented in this encounter [facility] Healthcare[facility]ospital Discharge instructions No data available for this section [facility] Progress note No data available for this section [facility] Reason for referral (narrative)No reason for referral [facility] Work [facility]: Summary Purpose Family History No Family History Records Found Relationship Condition Age at Onset Recorded Date/T alessandra father Prediabetes Unknown Not Specified Asthma Unknown Relationship Condition Age at Onset Recorded Date/T alessandra father Prediabetes Unknown mother Asthma Unknown Advance Directives No Advanced Directives Records Found Advance Directive Response Recorded Date/ Time Advance Directives No September 29 2:38pm Chief Complaint and Reason for Visit Chief Complaint reaction to paint Chief Complaint reaction to paint Rash Reason for Visit Contact dermatitis Contact dermatitis Chief Complaint Neck/Shoulder Pain Reason for Visit Cervical radicular p ain Chief Complaint Admit Date Possible Shingles February 20, 2025 1:39pm Additional Source Comments INFORMATION SOURCE (unrecogn ized section and content) DATE CREATED AUTHOR 08/02/2018 [facility] DATE CREATED AUTHOR AUTHOR'S ORGANIZ ATION 04/01/2020 [facility] DATE CREATED AUTHOR AUTHOR'S ORGANIZ ATION 01/30/2025 [facility] EPIC DATE CREATED AUTHOR AUTHOR'S ORGANIZ ATION 02/21/2025 Abram Alvarez [facility] Care Teams (unrecognized sec tion and content) Team Status: Active Member Role Status Dates Antonia Torres MD Primary Care Provider Active Team Status: Active Member Role Status Dates Antonia Torres MD Primary Care Provider Active Start: January 29, 2025 Fadumo Fuller DO Attending Provider Active Start : January 29, 2025 Team Status: Inactive Member Role Status Dates Antoina Torres MD Primary Care Provider Active Start: February 20, 2025 End: February 20, 2025 Antonia Torres MD Attending Provider Active St art: February 20, 2025 End: February 20, 2025 Team Status: Inactive Member Role Status Dates [...] March 09, 2024 End: March 09, 2024 Flooring Professional Relationship Specialty Start Date End Date Antonia Torres MD [address] [place] [phone] PCP - General Family Medicine 01/18/23 Flooring Professional Relationship Specialty Start Date End Date Antonia Torres MD [address] [place] [id number] PCP - General Family Medicine 01/18/23 Flooring Professional Relationship Specialty Start Date End Date Antonia Torres MD [address] [place] [id number] PCP - General Family Medicine 01/18/23 Flooring Professional Relationship Specialty Start Date End Date Antonia Torres MD [address] [place] [phone] PCP - General Family Medicine 01/18/23 Flooring Professional Relationship Specialty Start Date End Date Antonia Torres MD [address] [place] [phone] PCP - General Family Medicine 01/18/23 Goals (unrecognized section and content) Goals may be documented in a n alternate sectionGoals may be documented in an alternate sectionGoals may be documented in an alternate sectionGoals may be documented in an alternate section No data available for this section Reason for Visit (unrecogniz ed section and content) Reason Comments Well Women Visit Reason Comments Gynecologic Exam FOR RECORDS PERTAINING TO PATIENTS WHO ARE [...] BE BASED ON THE PRIMARY CLINICAL RECORDS. [email or web address] [facility]. provides no warranty or guarantee of the accuracy or completeness of information in this document.
== END 2025-03-16 14:58 | disposition home or self-care (01) ==
LOC: PST 14:57
PROVIDERS: PCP Family Medicine; Visit Provider Surgery
DX: Z01.818 Encounter for other preprocedural examination (principal); Z12.11 Encounter for screening for malignant neoplasm of colon

== ENCOUNTER 2025-03-21 08:30 | Day surgery (SDC) | payer BC, SELFPAY ==
--- NOTE | 2025-03-21 | OP_ITS ---
OPERATION DATE: 03/21/2025 PREOPERATIVE DIAGNOSIS: Colorectal screening. POSTOPERATIVE DIAGNOSIS: Normal colon. PROCEDURE: Colonoscopy to cecum. SURGEON: Alirio Brannon M.D. ANESTHESIA: Monitored anesthesia care. ESTIMATED BLOOD LOSS: Zero. INDICATIONS AND CONSENT: Patient is a 49-year-old female, presents for colorectal screening. Indications, risks, benefits, alternatives of proceeding with colonoscopy were explained extensively to the patient, including the risks of bleeding, colon perforation or anesthetic complications. All of her questions were answered. Informed consent was obtained. PROCEDURE: Patient brought to the operating room, placed in the left lateral decubitus position. Monitored anesthesia care was provided. Rectal exam was performed which showed no masses or blood. The scope was inserted into the anal canal. Under direct visualization was advanced. With the aid of abdominal compression, it was advanced to the cecum where cecal markings were clearly identified. There was noted to be a good prep. Upon withdrawal of the scope, mucosal surfaces were carefully examined. There were no mass lesions or polyps. No inflammatory changes or ulcerations. No significant diverticulosis. The scope was retroflexed in the anal canal. There was no significant hemorrhoidal disease. There was some redundancy of the colon. The scope was then withdrawn. Patient tolerated procedure well, was sent to recovery room in good condition. Follow up screening colonoscopy should be in 10 years. CC: Antonia Darby M.D. ADRIANNA
--- OUTSIDE RECORDS SUMMARY | 2025-03-21 08:33 | XMS_ITS | Encounter Summary ---
Author Organization [facility] Address [address] [place] [address] Care Team Providers Care Pneumatic Riveter Name Role Phone Antonia Darby MD Primary Care Provider [phone] Encounter Details Date Type Department Care Team (Late Contact Info) Description 02/07/2025 Orders Only [facility] [address] [place] [address] Jillian Gao LPN [address] [place] [address] Social History Tobacco Use Types Packs/Day Years Used Date Smoking Tobacco: Every Day Cigarettes Alcohol Use Standard Drinks/Week Comments Yes 0 (1 standard drink = 0.6 oz pure alcohol) 1-2 drinks 2-4x a month in the past year, Caffeine intake: 3-4 cups per day Comments No Sex and Gender Information Value Date Recorded Sex Assigned at Not on file Legal Sex Female 7:10 PM EDT Gender Identity Not on file Sexual Orientation Not on file documented as of this encounter Plan of Treatment Upcoming Encounters Date Type Department Care Team (Late st Contact Info) Description 02/04/2026 3:00 PM EDT Procedure Visit [facility] [address] [place] [address] Jason Fuller DO [address] [place] [address] documented as of this encounter Procedures Procedure Name Priority Date/Time Associated Diagnosis Comments PAP SMEAR Routine 01/29/2025 12:00 AM EDT documented in this encounter Results * Pap Smear (01/29/2025 12:00 AM EDT) Swab Cervical swab / Unknown us Jason Fuller DO LAB CYTOLOGY ORDERABLES Final Re sult EXTERNAL LAB documented in this encounter Visit Diagnoses Not on filedocumented in this encounter Care Teams Pneumatic Riveter Relationship Specialty Start Date End Date Antonia Darby MD [address] [place] [address] PCP - General Family Medicine 01/18/23 documented as of this encounter
--- OUTSIDE RECORDS SUMMARY | 2025-03-21 08:33 | XMS_ITS | Clinical Summary ---
Author Organization [facility] Address [address] [place] [address] Care Team Providers Care Silk Screen Operator Name Role Phone Antonia Darby MD Primary Care Provider [phone] Allergies Active Allergy Reactions Criticality Noted Date Comments Morphine Hives,Rash Low 05/10/2018 Medications estrogens, conjugated, (Premarin) 0.9 MG tabletIndication s:Postmenopausal HRT (hormone replacement therapy) Take 1 tablet (0.9 mg) by mouth at bedtime 30 tablet 11 01/31/2025 Active Active Problems Problem Noted Date Diagnosed Date Encounter for colorectal cancer screening 2023 Bilateral tinnitus 01/12/2023 Encounters Date Type Department Care Team Description 02/07/2025 Orders Only [facility] [address] [place] [address] Jillian Gao LPN 01/31/2025 Refill [facility] [address] [place] [address] Rica Somers LPN Postmenopausal HRT (hormone replacement therapy) 01/29/2025 3:00 PM EDT Office Visit [facility] [address] [place] [address] Jason Fuller DO Well woman exam with routine gynecological exam; H/O: hysterectomy; Breast cancer screening by mammogram 01/29/2025 Clinisync Result Encounter [facility] Department Unsolicited Jason Fuller DO 01/29/2025 Bamboo flowsheet [facility] [address] [place] [address] Jason Fuller DO from Last 3 Months Family History Medical History Relation Name Comments Hypertension Father Relation Name Status Comments Father Alive Mother Alive Social History Tobacco Use Types Packs/Day Years Used Date Smoking Tobacco: Every Day Cigarettes Tobacco Cessation:Ready to Q uit: Not Asked; Counseling Given: Not Answered Alcohol Use Standard Drinks/Week Comments Yes 0 (1 standard drink = 0.6 oz pure alcohol) 1-2 drinks 2-4x a month in the past year, Caffeine intake: 3-4 cups per day Comments No Sex and Gender Information Value Date Recorded Sex Assigned at Not on file Legal Sex Female 7:10 PM EDT Gender Identity Not on file Sexual Orientation Not on file Last Filed Vital Signs Vital Sign Reading Time Taken Comments Blood Pressure 120/72 01/29/2025 3:30 PM EDT Pulse - - Temperature - - Respiratory Rate - - Oxygen Saturation - - Inhaled Oxygen Concentration - - Weight 59.4 kg (131 lb) 01/29/2025 3:30 PM EDT Height 172.7 cm (5' 8 ) 01/29/2025 3:30 PM EDT Body Mass Index 19.92 01/29/2025 3:30 PM EDT Plan of Treatment Upcoming Encounters Date Type Department Care Team (Late st Contact Info) Description 02/04/2026 3:00 PM EDT Procedure Visit [facility] [address] [facility] [place] [address] Jason Fuller DO [address] [place], [place] [id number] Procedures Procedure Name Priority Date/Time Associated Diagnosis Comments IGP,APTIMA HPV,AGE GDLN Routine 01/29/2025 3:26 PM EDT PAP SMEAR Routine 01/29/2025 12:00 AM EDT from Last 3 Months Results * IGP,APTIMA HPV,AGE GDLN (01/29/2025 3:26 PM EDT) AGE GDLN ACOG TESTING Note . [facility] Comment: TESTS RESULT FLAG UNITS REF RANGE LAB Clinician Provided Cytology Information Source.............Vagina No. of containers..01 ThinPrep Vial Age Latoya BENITO Ria... 32 FLAG LEGEND: L-Low Normal,H-High Normal,LL-Alert Low,HH-Alert High <-Panic Low,>-Panic High,A-Abnormal,AA-Critical Abnormal Performed at: 01 [facility] [address] [place] [address] Sheron Solares MD, IGP, APTIMA HPV, RFX 16/18,45 Note . [facility] Comment: TESTS RESULT FLAG UNITS REF RANGE LAB DIAGNOSIS: 02 NEGATIVE FOR INTRAEPITHELIAL LESION OR MALIGNANCY. Specimen adequacy: 02 Satisfactory for evaluation. Performed by: 02 Izabella Bhat, Communications Media Professor ([facility]) . 02 Note: Note 02 [...] <-Panic Low,>-Panic High,A-Abnormal,AA-Critical Abnormal Performed at: [address] [address] Sheron Solares MD, HPV APTIMA Negative Negative [facility] Comment: This nucleic acid amplification test detects fourteen high- risk HPV types (16,18,31,33,35,39,45,51,52,56,58,59,66,68) without differentiation. Performed at: =[address] [id number] Home Care Rn: Sheron Solares MD, Phone: [phone] Performed at: [address] [id number] Home Care Rn: Sheron Solares MD, Phone: [phone] 01/29/2025 3:26 PM EDT 01/29/2025 9:07 PM EDT Narrative [facility] - 02/01/2025 6:10 PM EDT SPATULA-ALONE VAGINA Linki Jason Fuller DO LAB BLOOD ORDERABLES Final Resul t [facility] * Pap Smear (01/29/2025 12:00 AM EDT) Swab Cervical swab / Unknown Link[facility] Jason Fuller DO LAB CYTOLOGY ORDERABLES Final Re sult EXTERNAL LAB from Last 3 Months Insurance [employer] Care Teams Silk Screen Operator Relationship Specialty Start Date End Date Antonia Darby MD [address] [place] [phone] PCP - General Family Medicine 01/18/23
[2025-03-21 08:35] VITALS: BP 158/102; PULSE 72; TEMP 36.4; O2SAT 100; BMI 20.5
--- OUTSIDE RECORDS SUMMARY | 2025-03-21 08:35 | XMS_ITS | CCD ---
Author Organization [facility] Care Team Providers Care Cable Way Operator Name Role Phone JUSTUS BAILEY Attending Unavailable FADUMO FULLER Referring Unavailable ANTONIA TORRES Referring Unavailable JUSTUS BAILEY Referring Unavailable ANTONIA TORRES Referring Unavailable DELORIS DEWITT ([facility]) Referring UnavailJUSTUS Hearn Attending Unavailable ANTONIA TORRES Referring Unavailable FADUMO FULLER Admitting Unavailable FADUMO FULLER Attending Unavailable FADUMO FULLER Consulting Unavailable Antonia Torres MD Primary Care Provider [phone] Antonia Torres MD Primary Care Provider [phone] FADUMO FULLER Attending Unavailable Antonia Torres MD Primary Care Provider Fadumo Fuller DO Attending Provider [phone] Antonia Torres MD Attending Provider ANTONIA TORRES Primary Care Physician Fadumo FULLER R Referring Unavailable Alirio BRANNON Attending Unavailable Allergies Allergy Classification Reported Allergen(s) Allergy Type Date of Onset Reaction(s) Facility (11 sources) Morphine; Translations: [MORPHINE] Drug Allergy 8 Hives, Rash, Weal (disorder) [facility] Repository Medications Current Medications Medication Drug [...] signed up for this yet, please contact [employer] at [phone] to get signed up today. Language Information Language assistance services are available as needed. Normal [facility] IGP,APTIMA HPV,AGE GDLNon AGE GDLN ACOG TESTING Note . [facility] Comment on above: TESTS RESULT FLAG U NITS REF RANGE LAB Clinician Provided Cytology Information Source.............Vagina No. of containers..01 ThinPrep Vial Age Algo ACOG Ria... FLAG LEGEND: L-Low Normal,H-High Normal,LL-Alert Low,HH-Alert High <-Panic Low,>-Panic High,A-Abnormal,AA-Critical Abnormal Performed at: 01 =[address] [address] Sheron Solares MD, HPV APTIMA Negative Negative [facility] Comment on above: This nucleic acid am plification test detects fourteen high- risk HPV types (16,18,31,33,35,39,45,51,52,56,58,59,66,68) without differentiation. Performed at: =[address] [id number] Physician President: Sheron Solares MD, Phone: [phone] Performed at: [address] [id number] Physician President: Sheron Solares MD, Phone: [phone] IGP, APTIMA HPV, RFX 16/18,45 Note . [facility] Comment on above: TESTS RESULT FLAG UN ITS REF RANGE LAB DIAGNOSIS: 02 NEGATIVE FOR INTRAEPITHELIAL LESION OR MALIGNANCY. Specimen adequacy: 02 Satisfactory for evaluation. Performed by: 02 Izabella Bhat, Weld Inspector (ASCP) . 02 Note: Note 02 The [...] <-Panic Low,>-Panic High,A-Abnormal,AA-Critical Abnormal Performed at: [address] [address] Sheron Solares MD, SPATULA-ALONE VAGINA CLINISYNC [facility] Human papilloma virus 16+18+ 31+33+35+39+45+51+52+56+58+59+66+68 DNA [Presence] in CerOrdered By: Fadumo Fuller on 01-29-2025 HPV 16+18+31+33+35+39+45+51 +52+56+58+59+66+68 DNA Probe+sig amp Ql (Cvx) Negative Negative [facility] Comment on above: This nucleic acid am plification test detects fourteen high-risk HPV types (16,18,31,33,35,39,45,51,52,56,58,59,66,68)without differentiation.Performed at: = - [address] [id number] Director: Sheron Solares MD, Phone: [phone] at: [address] [id number] Director: Sheron Solares MD, Phone: [phone] No Panel InformationOrdered By: Fadumo Fuller on 01-29-2025 HPV High Risk Other Comment Note . [facility] Comment on above: TESTS RESULT FLAG UN ITS REF RANGE LAB -DIAGNOSIS: 02 NEGATIVE FOR INTRAEPITHELIAL LESION OR MALIGNANCY.Specimen adequacy: 02 Satisfactory for evaluation.Performed by: 02 Izabella Bhat, Weld Inspector ([facility]). 02Note: Note 02 The Pap smear is [...] High <-Panic Low,>-Panic High,A-Abnormal,AA-Critical Abnormal ------Performed at:[address] [place] [address] Sheron Solares MD, Reference Lab Test Patient Age Note . [facility] Comment on above: TESTS RESULT FLAG UN ITS REF RANGE LAB - Clinician Provided Cytology Information Source.............Vagina No. of containers..01 ThinPrep VialAge Nighato ACOG Ria... FLAG LEGEND: L-Low Normal,H-High Normal,LL-Alert Low,HH-Alert High <-Panic Low,>-Panic High,A-Abnormal,AA-Critical Abnormal ------Performed at:01 =G [address] [place] [address] Sheron Solares MD, IGP,APTIMA HPV,AGE GDLNon AGE GDLN ACOG TESTING Note . [facility] Comment on above: TESTS RESULT FLAG UN ITS REF RANGE LAB Clinician Provided Cytology Information Source.............Vagina No. of containers..01 ThinPrep Vial Age Nighato ACOG Ria... FLAG LEGEND: L-Low Normal,H-High Normal,LL-Alert Low,HH-Alert High <-Panic Low,>-Panic High,A-Abnormal,AA-Critical Abnormal Performed at: 01 =[address] [place] [address] Sheron Solares MD, HPV APTIMA Negative Negative [facility] Comment on above: This nucleic acid am plification test detects fourteen high- risk HPV types (16,18,31,33,35,39,45,51,52,56,58,59,66,68) without differentiation. Performed at: =[address] [id number] Physician President: Sheron Solares MD, Phone: [phone] Performed at: [address], [place] [id number] Physician President: Sheron Solares MD, Phone: [phone] IGP, APTIMA HPV, RFX 16/18,45 Note . [facility] Comment on above: TESTS RESULT FLAG UN ITS REF RANGE LAB DIAGNOSIS: 02 NEGATIVE FOR INTRAEPITHELIAL LESION OR MALIGNANCY. Specimen adequacy: 02 Satisfactory for evaluation. No endocervical cells are present. This is consistent with a history of hysterectomy. Performed by: 02 Felice Crow, Repair Coil Winder ([facility]) . 02 Note: Note 02 The [...] Low,>-Panic High,A-Abnormal,AA-Critical Abnormal Performed at: [address] [address] Sheron Solares MD, SPATULA-ALONE VAGINA [facility] [place] Cytology Cervical or vaginal smear or scraping studyOrdered By: Abby Akbar on 01-24-2024 [facility] PAP ACOG PANEL 2: 30 to 65on 04-01-2020 Age Gdln ACOG Testing -67 Normal [facility] Comment on above: Performed By: #### 4 [id number] #### [facility] [address] [address] Eusebio Whittaker DIAGNOSIS: Comment Normal [facility] Comment on above: Result Comment: NEGA TIVE FOR INTRAEPITHELIAL LESION OR MALIGNANCY. THIS SPECIMEN WAS RESCREENED PART OF OUR RENAL DIALYSIS RN PROGRAM. Performed at: WB Performed By: #### 4 [id number] #### [facility] [address] [id number] Eusebio Whittaker HPV Aptima Negative Normal Negative [facility] Comment on above: Result Comment: This test was developed and its performance characteristics determined by [facility]. It has not been cleared or approved by the Food and Drug Administration. This nucleic acid amplification test detects fourteen high-risk HPV types (16,18,31,33,35,39,45,51,52,56,58,59,66,68) without differentiation. Performed at: =G Performed By: #### 4 [id number] #### [facility] [address] [id number] Eusebio Whittaker Methodology: Comment Normal [facility] Comment on above: Result Comment: This liquid based SurePath(R) pap test was screened with the assistance of an image guided system. Performed at: WB Performed By: #### 4 [id number] #### [facility] [address] [place] [address] Eusebio Whittaker Note: Comment Normal [facility] Comment on above: Result Comment: The Pap smear is a screening test designed to aid in the detection of premalignant and malignant conditions of the uterine cervix. It is not a diagnostic procedure and should not be used as the sole means of detecting cervical cancer. Both false-positive and false-negative reports do occur. . Performed at: WB Performed By: #### 4 [id number] #### [facility] [address] [place] [address] Eusebio Handleyen Performed by: Comment Normal [facility] Comment on above: Result Comment: Juan Diego Bhagat, Repair Coil Winder (ASCP) Performed at: WB Performed By: #### 4 [id number] #### [facility] [address] [place] [address] Eusebio Remedios QC reviewed by: Comment Normal [facility] Comment on above: Result Comment: Tiny Rutledge, Supervisory Repair Coil Winder (ASCP) Performed at: WB Performed By: #### 4 [id number] #### [facility] [address] [place] [address] [facility] Specimen adequacy: Comment Normal [facility] Comment on above: Result Comment: Sati sfactory for evaluation. No endocervical cells are present. This is consistent with a history of hysterectomy. Performed at: WB Performed By: #### 4 [id number] #### [facility] [address] [place] [address] Eusebio Remedios . . Normal [facility] Comment on above: Result Comment: Perf ormed at: WB Performed By: #### 4 [id number] #### [facility] [address] [place] [address] Eusebio Remedios CNOVSPon 06-10-2018 [facility]OVSP [facility] SHANTAL MESSINA ([id number]) 1975 F Date Time Provider Department 06/10/18 [...] of bleeding or clotting etc. Shantal Messina ([id number]) Female [address] + CBC ? ? (FOR REMOTE [facility] USE) Order: [id number] Status: Final result ??Visible to patient: No [...] Other Results from 05/23/2018 PROTHROMBIN TIME/PT Order: [id number] Status: Final result ??Visible to patient: No [...] with VKA drugs, such as warfarin, the [place] College of Chest Physicians 2012 Guideline recommends [...] Chest 2012, 141:7S-47S Gilberto RA, et al. [facility] 2017, 70: 252-289 Resulting Agency [facility] Specimen Collected: 05/23/18 10:55 AM Last Resulted: 05/23/18 11:36 AM Lab Flowsheet Order Details View Encounter Lab and Collection Details Routing Result History ACTIVATED PTT Order: [id number] Status: Final result ??Visible to patient: No [...] laboratory APTT reagent in use throughout the [facility]. Resulting Agency [facility] Specimen Collected: 05/23/18 10:55 AM Last Resulted: 05/23/18 11:36 AM Lab Flowsheet Order Details View Encounter Lab and Collection Details Routing Result History PLATELET AGGREGATION PANEL Order: [id number] Status: Final result ??Visible to patient: No [...] be seen in normal individuals. Resulting Agency [facility] Specimen Collected: 05/23/18 10:55 AM Last Resulted: 05/24/18 ?5:40 PM Lab Flowsheet Order Details View Encounter Lab and Collection Details Routing Result History VITAMIN B12 BLOOD Order: [id number] Status: Final result ??Visible to patient: No (Not Released) Next appt: 01/12/2019 at 03:45 PM in [facility] (Justus Bailey MD) Dx: Thrombocytopenia (HCC); Abnormal weig... Ref Range AND Units 2wk ago Vitamin B12 232 - 1,245 pg/mL 588 Resulting Agency [facility] Specimen Collected: 05/23/18 10:55 AM Last Resulted: 05/23/18 ?8:40 PM Lab Flowsheet Order Details View Encounter Lab and Collection Details Routing Result History METHYLMALONIC ACID Order: [id number] Status: Final result ??Visible to patient: No (Not Released) Next appt: 01/12/2019 at 03:45 PM in [facility] (Justus Bailey MD) Dx: Thrombocytopenia (HCC); Abnormal weig... Ref Range AND Units 2wk ago MMA 79 - 376 nmol/L 100 Comment: This test was developed and its performance characteristics determined by [facility]'s Roque Heron [facility] Pathology and Laboratory Medicine [place] ([facility]). It has not been cleared or approved by the FDA. [facility] is regulated under CLIA as qualified to perform high-complexity testing. This test is used for clinical purposes. It should not be regarded as investigational or for research. Resulting Agency [facility] Specimen Collected: 05/23/18 10:55 AM Last Resulted: 05/25/18 ?8:47 AM Lab Flowsheet Order Details View Encounter Lab and Collection Details Routing Result History FOLATE SERUM Order: [id number] Status: Final result ??Visible to patient: No (Not Released) Next appt: 01/12/2019 at 03:45 PM in [facility] (Justus Bailey MD) Dx: Thrombocytopenia (HCC); Abnormal weig... Ref Range AND Units 2wk ago Folate >4.7 ng/mL 13.5 Resulting Agency [facility] Specimen Collected: 05/23/18 10:55 AM Last Resulted: 05/23/18 ?8:40 PM Lab Flowsheet Order Details View Encounter Lab and Collection Details Routing Result History TSH BLD Order: [id number] Status: Final result ??Visible to patient: No (Not Released) Next appt: 01/12/2019 at 03:45 PM in [facility] (Justus Bailey MD) Dx: Thrombocytopenia (HCC); Abnormal [...] Clinical Practice Guideline. J Clin Endocrinol Metab, 2012:97:2620-9387. 2. Patrick STONER. Overview of thyroid disease in . UpToDate. 2016. Accessed on ?November 22, 2015. Resulting Agency [facility] Specimen Collected: 05/23/18 10:55 AM Last Resulted: 05/23/18 ?5:59 PM Lab Flowsheet Order Details View Encounter Lab and Collection Details Routing Result History HEPATIC FUNCTION PNL Order: [id number] Status: Final result ??Visible to patient: No [...] Routing Result History BASIC METABOLIC PNL Order: [id number] Status: Final result ??Visible to patient: No (Not Released) Next appt: 01/12/2019 at 03:45 PM in [facility] (Justus Bailey MD) Dx: Thrombocytopenia (HCC); Abnormal weig... Ref Range AND Units 2wk ago Glucose 74 - 99 mg/dL 86 Comment: The [place] Diabetes Association (ADA) provides guidance for cutoff [...] Standards of Medical Care in Diabetes 2016, Australian Diabetes Association. Diabetes Care. 2016.39(Suppl 1). BUN [...] Result History HIV 1,2 COMBO (AG/AB) Order: [id number] Status: Final result ??Visible to patient: No (Not Released) Next appt: 01/12/2019 at 03:45 PM in [facility] (Justus Bailey MD) Dx: Thrombocytopenia (HCC); Abnormal weig... Ref Range AND Units 2wk ago HIV 12 Combo (Ag/Ab) Non Reactive Non Reactive Comment: (NOTE) HIV Information: ?[place] Rev. Code 3701.243(E): This information has been [...] Routing Result History SED RATE LINUSERGREN Order: [id number] Status: Final result ??Visible to patient: No [...] Result History KAUSHIK BY IFA SCREEN Order: [id number] Status: Final result ??Visible to patient: No [...] BLOOD Collected: 05/23/2018 10:56 AM Resulting Agency: [facility] Result Information Flag: Abnormal Status: Final result (Resulted: 05/23/2018 ?2:56 PM) Provider Status: Reviewed Patient Release Status: This result is not viewable by the patient. Routing History Priority Sent On From To Message Type 05/23/2018 11:37 AM , Lab [facility] [place] Justus Bailey Results View Smartlink Info ABS GRAN CT + CBC ? ? (FOR REMOTE [facility] USE) (Order #[id number]) on 05/23/18 Order Report Order Details Current [...] ABS GRAN CT + CBC (FOR REMOTE [facility] USE) Justus Bailey MD Referring Provider: ANTONIA TORRES [[id number]] Allergies As of Date: 06/10/2018 Noted Allergy Reaction MORPHINE 05/10/2018 4 - Hives Date Reviewed: 06/10/2018 Reviewed by: Mela Alfaro - Fully Assessed Reason for Visit: Thrombocytopenia [603] Cmt: 4 week follow up Primary Visit Diagnosis:Thrombocyt openia (HCC) [D69.6] Order(s):VON WILLEBRAND DX PANEL [SQVWFPN] Order #: [id number] FUTURE ABS GRAN CT + CBC (FOR REMOTE [facility] USE) [SQRAGCBC] Order #: [id number] FUTURE Disposition: Return in about 8 months [...] by JUSTUS BAILEY MD on 06/10/18 Normal [facility] PROGRESSon 06-10-2018 Protein mass conc HNO ID: [id number] Author: Justus Bailey Service: (none) Author Type: [...] of bleeding or clotting etc. EusebioShantal bhandari ([id number]) Female [address] + CBC ? ? (FOR REMOTE [facility] USE) Order: [id number] Status: Final result ??Visible to patient: No [...] Other Results from 05/23/2018 PROTHROMBIN TIME/PT Order: [id number] Status: Final result ??Visible to patient: No [...] with VKA drugs, such as warfarin, the [place] College of Chest Physicians 2012 Guideline recommends [...] Chest 2012, 141:7S-47S Gilberto RA, et al. [facility] 2017, 70: 252-289 Resulting Agency [facility] Specimen Collected: 05/23/18 10:55 AM Last Resulted: 05/23/18 11:36 AM Lab Flowsheet Order Details View Encounter Lab and Collection Details Routing Result History ACTIVATED PTT Order: [id number] Status: Final result ??Visible to patient: No [...] laboratory APTT reagent in use throughout the [facility]. Resulting Agency [facility] Specimen Collected: 05/23/18 10:55 AM Last Resulted: 05/23/18 11:36 AM Lab Flowsheet Order Details View Encounter Lab and Collection Details Routing Result History PLATELET AGGREGATION PANEL Order: [id number] Status: Final result ??Visible to patient: No [...] be seen in normal individuals. Resulting Agency [facility] Specimen Collected: 05/23/18 10:55 AM Last Resulted: 05/24/18 ?5:40 PM Lab Flowsheet Order Details View Encounter Lab and Collection Details Routing Result History VITAMIN B12 BLOOD Order: [id number] Status: Final result ??Visible to patient: No (Not Released) Next appt: 01/12/2019 at 03:45 PM in [facility] (Justus Bailey MD) Dx: Thrombocytopenia (HCC); Abnormal weig... Ref Range AND Units 2wk ago Vitamin B12 232 - 1,245 pg/mL 588 Resulting Agency [facility] Specimen Collected: 05/23/18 10:55 AM Last Resulted: 05/23/18 ?8:40 PM Lab Flowsheet Order Details View Encounter Lab and Collection Details Routing Result History METHYLMALONIC ACID Order: [id number] Status: Final result ??Visible to patient: No (Not Released) Next appt: 01/12/2019 at 03:45 PM in [facility] (Justus Bailey MD) Dx: Thrombocytopenia (HCC); Abnormal weig... Ref Range AND Units 2wk ago MMA 79 - 376 nmol/L 100 Comment: This test was developed and its performance characteristics determined by [facility]'s [facility] Pathology and Laboratory Medicine [place] (-[facility]). It has not been cleared or approved by the FDA. [facility] is regulated under CLIA as qualified to perform high-complexity testing. This test is used for clinical purposes. It should not be regarded as investigational or for research. Resulting Agency [facility] Specimen Collected: 05/23/18 10:55 AM Last Resulted: 05/25/18 ?8:47 AM Lab Flowsheet Order Details View Encounter Lab and Collection Details Routing Result History FOLATE SERUM Order: [id number] Status: Final result ??Visible to patient: No [...] Details Routing Result History TSH BLD Order: [id number] Status: Final result ??Visible to patient: No [...] Third Trimester ? ?0.300-3.000 uU/mL References: 1. vEerett L, Angie M, Messi EK, et al. Management of Thyroid Dysfunction during and : An Endocrine Society Clinical Practice Guideline. J Clin Endocrinol Metab, 2012:97:6665-2399. 2. Patrick DS. Overview of thyroid disease in . UpToDate. 2016. Accessed on ?November 22, 2015. Resulting Agency [facility] Specimen Collected: 05/23/18 10:55 AM Last Resulted: 05/23/18 ?5:59 PM Lab Flowsheet Order Details View Encounter Lab and Collection Details Routing Result History HEPATIC FUNCTION PNL Order: [id number] Status: Final result ??Visible to patient: No [...] 6.3 - 8.0 g/dL 7.5 [facility] Spec[facility] Collected: 05/23/18 10:55 AM Last Resulted: 05/23/18 11:41 AM Lab Flowsheet Order Details View Encounter Lab and Collection Details Routing Result History BASIC METABOLIC PNL Order: [id number] Status: Final result ??Visible to patient: No (Not Released) Next appt: 01/12/2019 at 03:45 PM in [facility] (Justus Bailey MD) Dx: Thrombocytopenia (HCC); Abnormal weig... Ref Range AND Units 2wk ago Glucose 74 - 99 mg/dL 86 Comment: The [place] Diabetes Association (ADA) provides guidance for cutoff [...] Standards of Medical Care in Diabetes 2016, [place] Diabetes Association. Diabetes Care. 2016.39(Suppl 1). BUN [...] may not accurately reflect actual GFR. Resulting [place] [facility] Specimen Collected: 05/23/18 10:55 AM Last Resulted: 05/23/18 11:41 AM Lab Flowsheet Order Details View Encounter Lab and Collection Details Routing Result History HIV 1,2 COMBO (AG/AB) Order: [id number] Status: Final result ??Visible to patient: No (Not Released) Next appt: 01/12/2019 at 03:45 PM in [facility] (Justus Bailey MD) Dx: Thrombocytopenia (HCC); Abnormal weig... Ref Range AND Units 2wk ago HIV 12 Combo (Ag/Ab) Non Reactive Non Reactive Comment: (NOTE) HIV Information: ?[place] Rev. Code 3701.243(E): This information has been [...] HIV test results or diagnoses. Resulting Agency [facility] Specimen Collected: 05/23/18 10:55 AM Last Resulted: 05/23/18 ?7:23 PM Lab Flowsheet Order Details View Encounter Lab and Collection Details Routing Result History SED RATE WESTERGREN Order: [id number] Status: Final result ??Visible to patient: No (Not Released) Next appt: 01/12/2019 at 03:45 PM in [facility] (Justus Bailey MD) Dx: Thrombocytopenia (HCC); Abnormal weig... Ref Range AND Units 2wk ago WSR 0 - 20 mm/hr 12 Resulting Agency [facility] Specimen Collected: 05/23/18 10:55 AM Last Resulted: 05/23/18 ?5:47 PM Lab Flowsheet Order Details View Encounter Lab and Collection Details Routing Result History KAUSHIK BY IFA SCREEN Order: [id number] Status: Final result ??Visible to patient: No [...] BLOOD Collected: 05/23/2018 10:56 AM Resulting Agency: [facility] Result Information Flag: Abnormal Status: Final result (Resulted: 05/23/2018 ?2:56 PM) Provider Status: Reviewed Patient Release Status: This result is not viewable by the patient. Routing History Priority Sent On From To Message Type 05/23/2018 11:37 AM , Lab [place] Justus Bailey Results View Game Blisters Info ABS GRAN CT + CBC ? ? (FOR REMOTE [facility] USE) (Order #[id number]) on 05/23/18 Order Report Order Details Current [...] ABS GRAN CT + CBC (FOR REMOTE [facility] USE) Justus Bailey MD Normal [facility] KAUSHIK by Maxime 05-23-2018 KAUSHIK Pattern Negative Normal [facility] Comment on above: Performed By: #### W SR, TSH, HIV12C, B12, SERFOL, ANAIFS, MMA ####[facility], [place] [phone] KAUSHIK Titer Negative Normal Negative [facility] Comment on above: Result Comment: Norm al range : negative at <1:80 serum dilution. Performed By: #### W SR, TSH, HIV12C, B12, SERFOL, ANAIFS, MMA ####[facility], [place] [phone] Nuclear Ab IF titer (S) Negative Normal Negative [facility] Comment on above: Result Comment: Norm al range : negative at <1:80 serum dilution. Approximately 6% of patients with connective tissue diseases with low positive EIA values are negative by IFA. Recommend follow-up with specific antinuclear antibodies if clinically indicated. Performed By: #### W SR, TSH, HIV12C, B12, SERFOL, ANAIFS, MMA ####[facility], [place] [phone] APTTon 05-23-2018 aPTT Coag time (Bld) 26.7 s Normal 23.0-32.4 [facility] Comment on above: Result Comment: Unfr [...] laboratory APTT reagent in use throughout the [facility]. Performed By: #### W SR, TSH, HIV12C, B12, SERFOL, ANAIFS, MMA #### [facility] [address] [place], [place] [address] Basic Metabolic Panlon 05-23 Anion gap molar conc 12 mmol/L Normal -18 [facility] Comment on above: Performed By: #### W SR, TSH, HIV12C, B12, SERFOL, ANAIFS, MMA #### [facility] [address] [place], [place] [address] Calcium mass conc 9.6 mg/dL Normal 8.6-10.0 [facility] Comment on above: Performed By: #### W SR, TSH, HIV12C, B12, SERFOL, ANAIFS, MMA #### [facility] [address] [place] [address] Chloride molar conc 104 mmol/L Normal 97-105 [facility] Comment on above: Performed By: #### W SR, TSH, HIV12C, B12, SERFOL, ANAIFS, MMA #### [facility] [address] [place] [phone] CO2 molar conc 25 mmol/L Normal 22-30 [facility] Comment on above: Performed By: #### W SR, TSH, HIV12C, B12, SERFOL, ANAIFS, MMA #### [facility] [address] [place] [phone] Creatinine mass conc 0.70 mg/dL Normal 0.58-0.96 [facility] Comment on above: Performed By: #### W SR, TSH, HIV12C, B12, SERFOL, ANAIFS, MMA #### [facility] [address] [place] [phone] eGFR- Amer. >60 Normal [facility] Comment on above: Performed By: #### W SR, TSH, HIV12C, B12, SERFOL, ANAIFS, MMA #### [facility] [address] [place] [phone] GFR/1.73 sq M predicted among non-blacks MDRD vol rate/area (S/P/Bld) mL/min/{1.73_m2} Normal [facility] Comment on above: Result Comment: eGFR (Estimated [...] TSH, HIV12C, B12, SERFOL, ANAIFS, MMA #### [facility] [address] [address] Glucose mass conc 86 mg/dL Normal 74-99 [facility] Comment on above: Result Comment: The [place] Diabetes Association (ADA) provides guidance for cutoff [...] Standards of Medical Care in Diabetes 2016, Australian Diabetes Association. Diabetes Care. 2016.39(Suppl 1). Performed By: #### W SR, TSH, HIV12C, B12, SERFOL, ANAIFS, MMA #### [facility] [address] [address] Potassium molar conc 4.3 mmol/L Normal 3.7-5.1 [facility] Comment on above: Performed By: #### W SR, TSH, HIV12C, B12, SERFOL, ANAIFS, MMA #### [facility] [address] [address] Sodium molar conc 141 mmol/L Normal 136-144 [facility] Comment on above: Performed By: #### W SR, TSH, HIV12C, B12, SERFOL, ANAIFS, MMA #### [facility] [address] [address] Urea nitrogen mass conc 12 mg/dL Normal 7-21 [facility] Comment on above: Performed By: #### W SR, TSH, HIV12C, B12, SERFOL, ANAIFS, MMA #### [facility] [address] [address] Folate, Serumon 05-23-2018 Folate mass conc 13.5 ng/mL Normal >4.7 [facility] Comment on above: Performed By: #### W SR, TSH, HIV12C, B12, SERFOL, ANAIFS, MMA ####[facility] [place], [place] [phone] HIV 12 Combo (Ag/Ab)on 05-23 HIV 12 Ag/Ab Non Reactive Normal Non Reactive [facility] Comment on above: Result Comment: (NOT E) HIV Information: [place] Rev. Code 3701.243(E): This information has been [...] TSH, HIV12C, B12, SERFOL, ANAIFS, MMA #### [address] [place] [address] Hepatic Functn Panelon 05-23 Albumin mass conc 4.6 g/dL Normal 3.9-4.9 [facility] Comment on above: Performed By: #### W SR, TSH, HIV12C, B12, SERFOL, ANAIFS, MMA #### [address] [address] [address] [place] [address] ALP enzyme act/vol 106 U/L Normal 34-123 [facility] Comment on above: Performed By: #### W SR, TSH, HIV12C, B12, SERFOL, ANAIFS, MMA #### [facility] [address] [address] ALT enzyme act/vol 15 U/L Normal 7-38 [facility] Comment on above: Performed By: #### W SR, TSH, HIV12C, B12, SERFOL, ANAIFS, MMA #### [facility] [address] [address] AST enzyme act/vol 16 U/L Normal 13-35 [facility] Comment on above: Performed By: #### W SR, TSH, HIV12C, B12, SERFOL, ANAIFS, MMA #### [place] [address] Bilirubin mass conc 0.2 mg/dL Normal 0.2-1.3 [facility] Comment on above: Performed By: #### W SR, TSH, HIV12C, B12, SERFOL, ANAIFS, MMA #### [address] [place] [address] [place] [address] Bilirubin,Conjugated <0.2 Normal <0.2 [facility] Comment on above: Performed By: #### W SR, TSH, HIV12C, B12, SERFOL, ANAIFS, MMA #### [place] [address] Protein mass conc 7.5 g/dL Normal 6.3-8.0 [facility] Comment on above: Performed By: #### W SR, TSH, HIV12C, B12, SERFOL, ANAIFS, MMA #### [address] [address] [address] [place] [address] Methylmalonic Acidon 12-17-2 018 Methylmalonic Acid 100 nmol/L Normal 79-376 [facility] Comment on above: Result Comment: This test was developed and its performance characteristics determined by [facility] Pathology and Laboratory Medicine [place] (RT-PLMI). It has not been cleared or approved by the FDA. -[facility] is regulated under CLIA as qualified to perform high-complexity testing. This test is used for clinical purposes. It should not be regarded as investigational or for research. Performed By: #### W SR, TSH, HIV12C, B12, SERFOL, ANAIFS, MMA ####[address] [phone] Platelet Aggr. Panelon 05-23 ADP 20 Max Aggreg 76 % Max Normal 70-100 [facility] Comment on above: Performed By: #### A GGPLP ####[address] [phone] ADP Max Aggreg 86 % Max Normal 70-100 [facility] Comment on above: Performed By: #### A GGPLP ####[address] [phone] Arach Max Aggreg 93 % Max Normal 66-100 [facility] Comment on above: Performed By: #### A GGPLP ####[address] [phone] ATP Rel by ADP 0.3 nM Normal 0.2-1.6 [facility] Comment on above: Performed By: #### A GGPLP ####[address] [phone] ATP Rel by ADP 20 0.5 nM Normal 0.2-1.6 [facility] Comment on above: Performed By: #### A GGPLP ####[address] [phone] ATP Rel by Aracha 0.7 nM Normal 0-1.3 [facility] Comment on above: Performed By: #### A GGPLP ####[address] [phone] ATP Rel by Collagen 0.4 nM Normal 0.4-1.9 [facility] Comment on above: Performed By: #### A GGPLP ####[place] [phone] ATP Rel by EPI 100 0.3 nM Normal 0.3-1.7 [facility] Comment on above: Performed By: #### A GGPLP ####[address] [place] [phone] ATP Rel by Epineph 0.0 nM Low 0.3-1.7 [facility] Comment on above: Performed By: #### A GGPLP ####[address] [place] [phone] Collagen Max Aggreg 79 % Max Normal 70-100 [facility] Comment on above: Performed By: #### A GGPLP ####[address] [place] [phone] Epin 100 Max Aggreg 84 % Max Normal 67-95 [facility] Comment on above: Performed By: #### A GGPLP ####[address] [place] [phone] Epin Max Aggreg 16 % Max Low 67-95 [facility] Comment on above: Performed By: #### A GGPLP ####[address] [place] [phone] Plt Aggreg Interp (NOTE) Normal [facility] Comment on above: Result Comment: Perf orming [...] normal individuals. Performed By: #### A GGPLP ####[address] [place] [phone] Risto 1200 Max Agg 81 % Max Normal 68-100 [facility] Comment on above: Performed By: #### A GGPLP ####[address] [place] [phone] Risto 1500 Max Agg 86 % Max Normal 75-100 [facility] Comment on above: Performed By: #### A GGPLP ####[address] [place] [phone] Risto 600 Max Agg 5 % Max Normal 0-26 [facility] Comment on above: Performed By: #### A GGPLP ####[address] [place] [phone] Risto 900 Max Agg 86 % Max Normal 0-90 [facility] Comment on above: Performed By: #### A GGPLP ####[address] [place] [phone] Protimeon 05-23-2018 Prothrombin time (PT) Coag time (PPP) 9.3 s Low 9.7-13.0 [facility] Comment on above: Performed By: #### W SR, TSH, HIV12C, B12, SERFOL, ANAIFS, MMA #### [facility] [address] [phone] Prothrombin time (PT) Coag time (PPP) s Low 0.9-1.3 [facility] Comment on above: Result Comment: Adriana min K Antagonist (VKA) Therapeutic Range: INR 2 to 3 (Target INR of 2.5) Note: For patients treated with VKA drugs, such as warfarin, the [place] College of Chest Physicians 2012 Guideline recommends [...] Chest 2012, 141:7S-47S Gilberto RA, et al. [facility] 2017, 70: 252-289 Performed By: #### W SR, TSH, HIV12C, B12, SERFOL, ANAIFS, MMA #### [facility] [address] [phone] Remote Abs Gran + CBC (for F HC use only)on 05-23-2018 Absol Gran Count 2.03 k/uL Normal 1.45-7.50 [facility] Comment on above: Performed By: #### R AGCBC ####[facility] [address] [place], [place] [phone] Absolute nRBC <0.01 Normal <0.01 [facility] Comment on above: Performed By: #### R AGCBC ####[facility] [address] [place], [place] [phone] Erythrocyte distribution width Ratio (RBC) 13.4 % Normal 11.5-15.0 [facility] Comment on above: Performed By: #### R AGCBC ####[id number] [place], [place] [phone] Hematocrit Volume Fraction (Bld) 40.4 % Normal 36.0-46.0 [facility] Comment on above: Performed By: #### R AGCBC ####[address] [phone] Hemoglobin mass conc (Bld) 13.6 g/dL Normal 11.5-15.5 [facility] Comment on above: Performed By: #### R AGCBC ####[address] [phone] MCH Entitic mass (RBC) 35.5 pG High 26.0-34.0 [facility] Comment on above: Performed By: #### R AGCBC ####[address] [phone] MCHC mass conc (RBC) 33.7 g/dL Normal 30.5-36.0 [facility] Comment on above: Performed By: #### R AGCBC ####[address] [phone] MCV Entitic volume (RBC) 105.5 fL High 80.0-100.0 [facility] Comment on above: Performed By: #### R AGCBC ####[address] [phone] Platelet mean volume Entitic volume (Bld) 9.7 fL Normal 9.0-12.7 [facility] Comment on above: Performed By: #### R AGCBC ####[address] [phone] Platelets #/vol (Bld) 145 10*3/uL Low 150-400 [facility] Comment on above: Performed By: #### R AGCBC ####[address] [phone] RBC #/vol (Bld) 3.83 10*6/uL Low 3.90-5.20 [facility] Comment on above: Performed By: #### R AGCBC ####[facility] [place], [place] [phone] WBC #/vol (Bld) 3.89 10*3/uL Normal 3.70-11.00 [facility] Comment on above: Performed By: #### R AGCBC ####[facility] [place], [place] [phone] Sed Rate Westergrenon 2017 Sed Rate Westergren 12 mm/hr Normal 0-20 [facility] Comment on above: Performed By: #### W SR, TSH, HIV12C, B12, SERFOL, ANAIFS, MMA #### [facility] [address] [place], [place] [address] TSHon 05-23-2018 Thyrotropin Qn 2.160 uU/mL Normal 0.400-5.500 [facility] Comment on above: Result Comment: If t he patient is , TSH reference range varies by gestational period: First Trimester 0.100-2.500 uU/mL Second Trimester 0.200-3.000 uU/mL Third Trimester 0.300-3.000 uU/mL References: 1. Everett L, Angie M, Messi EK, et al. Management of Thyroid Dysfunction during and : An Endocrine Society Clinical Practice Guideline. J Clin Endocrinol Metab, 2012:97:7699-8107. 2. Patrick STONER. Overview of thyroid disease in . UpToDate. 2016. Accessed on November 22, 2015. Performed By: #### W SR, TSH, HIV12C, B12, SERFOL, ANAIFS, MMA #### [facility] [address] [place], [place] [address] Vitamin B12on 05-23-2018 Cobalamin (Vitamin B12) mass conc 588 pg/mL Normal 232-1245 [facility] Comment on above: Performed By: #### W SR, TSH, HIV12C, B12, SERFOL, ANAIFS, MMA ####[facility] [address] [place], [place] [phone] CNCOon 05-13-2018 CNCO Letter Text Dear Shantal Messina: How to activate your [facility] [employer] Account 1. Visit the [employer] Signup page at [email or web address] 2. Identify yourself using your one-time use activation code: [email or web address] 3. Follow the on-screen prompts to choose [...] information on the Identify Yourself Form at [email or web address] , click Next. Create your login and password, choose a [employer] ID and password that will be easy for you to use, but impossible for anyone else to guess. Pick a security question that will assist you in the event you forget your password the next time you log-on. If you have difficulty activating your account, please call our [employer] helpline at [phone] or toll free at . We hope you enjoy using [employer]! Kindest Regards, [facility] [employer] Team Normal [facility] CNOVSPon 05-13-2018 CNOVSP Visit (SP) Office ([place]) SHANTAL MESSINA ([id number]) 1975 F Date Time Provider Department 05/13/18 [...] Justus Bailey MD Referring Provider: FADUMO FULLER [[id number]] Allergies As of Date: 05/13/2018 Noted Allergy Reaction MORPHINE 05/10/2018 4 - Hives Date Reviewed: 05/13/2018 Reviewed by: Mela Alfaro - Fully Assessed Reason for Visit: Thrombocytopenia [603] Cmt: New patient consultation Primary Visit Diagnosis:Thrombocyt openia (HCC) [D69.6] Other Visit Diagnoses:S/P PHILLY-BSO [Z90.710, Z90.722, Z90.79] Abnormal weight loss [R63.4] Order(s):ABS GRAN CT + CBC (FOR REMOTE [facility] USE) [SQRAGCBC] Order #: [id number] FUTURE PROTHROMBIN TIME/PT [SQPT] Order #: [id number] FUTURE ACTIVATED PTT [SQPTT] Order #: [id number] FUTURE PLATELET AGGREGATION PANEL [SQAGGPLP] Order #: [id number] FUTURE VITAMIN B12 BLOOD [SQB12] Order #: [id number] FUTURE METHYLMALONIC ACID [SQMMA] Order #: [id number] FUTURE FOLATE SERUM [SQSERFOL] Order #: [id number] FUTURE TSH BLD [SQTSH] Order #: [id number] FUTURE HEPATIC FUNCTION PNL [SQHFP] Order #: [id number] FUTURE BASIC METABOLIC PNL [SQBMP] Order #: [id number] FUTURE HIV 1,2 COMBO (AG/AB) [SQHIV12] Order #: [id number] FUTURE SED RATE WESTERGREN [SQWSR] Order #: [id number] FUTURE KAUSHIK BY IFA SCREEN [SQANAIFS] Order #: [id number] FUTURE Disposition: Return in about 4 weeks [...] by JUSTUS BAILEY MD on 05/13/18 Normal [facility] PROGRESSon 05-13-2018 Protein mass conc HNO ID: [id number] Author: Justus Bailey Service: (none) Author Type: [...] ABS GRAN CT + CBC (FOR REMOTE [facility] USE) - PROTHROMBIN TIME/PT - ACTIVATED [...] BY IFA SCREEN Justus Bailey MD Normal [facility] Vital Signs Date Time Vital Sign Value Performing Clinician Facility 02-20-2025 13:41-0400 Body height 172.72 cm Antonia Torres MD Work Phone: [facility] 02-20-2025 13:41-0400 Body mass index (BMI) [Ratio] 19.9 kg/m2 Antonia Torres MD Work Phone: [facility] 02-20-2025 13:41-0400 Body weight 59.42 kg Antonia Torres MD Work Phone: [facility] 02-20-2025 13:41-0400 Diastolic blood pressure 82 mm[Hg] Antonia Torres MD Work Phone: [facility] 02-20-2025 13:41-0400 Heart rate 86 /min Antonia Torres MD Work Phone: [facility] 02-20-2025 13:41-0400 Systolic blood pressure 140 mm[Hg] Antonia Torres MD Work Phone: [facility] 01-29-2025 15:30-0400 Body height 172.7 cm Fadumo Jonny DO Work Phone: [facility] 01-29-2025 15:30-0400 Body mass index (BMI) [Ratio] 19.92 kg/m2 Fadumo Jonny DO Work Phone: [facility] 01-29-2025 15:30-0400 Body weight 59.42 kg Fadumo Jonny DO Work Phone: [facility] 01-29-2025 15:30-0400 Diastolic blood pressure 72 mm[Hg] Fadumo Jonny DO Work Phone: [facility] 01-29-2025 15:30-0400 Systolic blood pressure 120 mm[Hg] Fadumo Jonny DO Work Phone: [facility] 03-09-2024 13:19-0400 Body height 172.[address] [facility] 03-09-2024 13:19-0400 Body mass index (BMI) [Ratio] 20.9 kg/m2 [facility] 03-09-2024 13:19-0400 Body weight 62.[address] [facility] 03-09-2024 13:19-0400 Diastolic blood pressure 82 mm[Hg] [facility] 03-09-2024 13:19-0400 Heart rate 93 /min [facility] 03-09-2024 13:19-0400 Respiratory rate 16 /[facility] 03-09-2024 13:19-0400 SaO2% (BldA) [Mass fraction] 98 % [facility] 03-09-2024 13:19-0400 Systolic blood pressure 118 mm[Hg] [facility] 01-24-2024 15:06-0400 Body mass index (BMI) [Ratio] 20.44 kg/m2 Fadumo Jonny DO Work Phone: [facility] 01-24-2024 15:06-0400 Body weight 60.96 kg Fadumo Jonny DO Work Phone: [facility] 01-24-2024 15:06-0400 Diastolic blood pressure 70 mm[Hg] Fadumo Jonny DO Work Phone: [facility] 01-24-2024 15:06-0400 Systolic blood pressure 120 mm[Hg] Fadumo Jonny DO Work Phone: [facility] 10-14-2023 13:45-0400 Body height 172.[address] [facility] 10-14-2023 13:45-0400 Body mass index (BMI) [Ratio] 20.5 kg/m2 [facility] 10-14-2023 13:45-0400 Body weight 61.[address] [facility] 10-14-2023 13:45-0400 Diastolic blood pressure 85 mm[Hg] [facility] 10-14-2023 13:45-0400 Heart rate 83 /min [facility] 10-14-2023 13:45-0400 Systolic blood pressure 133 mm[Hg] [facility] 10-01-2023 10:40-0400 Body height 172.[address] [facility] 10-01-2023 10:40-0400 Body mass index (BMI) [Ratio] 22 kg/m2 [facility] 10-01-2023 10:40-0400 Body weight 65.[address] [facility] 10-01-2023 10:40-0400 Diastolic blood pressure 87 mm[Hg] [facility] 10-01-2023 10:40-0400 Heart rate 81 /min [facility] 10-01-2023 10:40-0400 Systolic blood pressure 135 mm[Hg] [facility] Encounters Encounter Date Encounter Type Care Provider Facility Start: 02-20-2025 End: 02-20-2025 ambulatory Fadumo R JONNY Facility:[facility] Start: 02-20-2025 End: 02-20-2025 Patient encounter procedure Alirio BRANNON [facility] [place] Start: 02-20-2025 End: 02-20-2025 ambulatory Antonia Torres MD Work Phone: [facility] Work Phone: Start: 02-20-2025 End: 02-20-2025 Patient encounter procedure Antonia Torres MD -[facility] Work Phone: Start: 02-06-2025 ambulatory Fadumo JONNY Facility:[facility] Start: 01-29-2025 Non-patient / Non-visit Fadumo Jonny -[facility] Work Phone: Start: 01-29-2025 End: [...] flowsheet Fadumo Jonny DO Work Phone: [facility] [place] [facility] Start: 01-29-2025 End: 02-01-2025 Bamboo flowsheet Fadumo Jonny DO Work Phone: [facility] Start: 01-29-2025 End: 02-01-2025 Clinisync Result Encounter Fadumo Jonny DO Work Phone: [facility] Unsolicited Start: 03-09-2024 End: 03-09-2024 ambulatory [facility] Work Phone: Start: 03-09-2024 End: 03-09-2024 Patient encounter procedure [facility] Work Phone: Start: 01-24-2024 End: 01-24-2024 [...] Department Unsolicited Start: 10-14-2023 End: 10-14-2023 ambulatory [facility] Work Phone: Start: 10-14-2023 End: 10-14-2023 Patient encounter procedure [facility] Work Phone: Start: 10-01-2023 End: 10-01-2023 ambulatory [facility] Work Phone: Start: 10-01-2023 End: 10-01-2023 Patient encounter procedure [facility] Work Phone: Start: 03-25-2020 End: 03-25-2020 Patient encounter procedure FADUMO WATTERSO Facility: Start: 06-10-2018 End: 08-02-2018 Patient encounter procedure JUSTUS BAILEY [facility] Start: 05-23-2018 End: 05-24-2018 Patient encounter procedure JUSTUS BAILEY [facility] Start: 05-13-2018 End: 05-16-2018 [facility] Procedures Date Procedure Procedure Detail Performing Clinician [...] PM EDT Procedure Visit [facility] [address] [place] [id number] Fadumo Fuller, DO [address] [place] [address] [facility] Start: 01-29-2025 End: 01-29-2025 Patient [...] EDT Office Visit [facility] [address] [place] [address] Fadumo Fuller DO [address] [place] [address] Arrived [facility] Comment on above: Arrived Start: 01-24-2024 End: 03-25-2025 MG Breast - bilateral Screening Bilateral screening mammogram Imaging Routine Breast cancer screening by mammogram Expected: 01/24/2024 (Approximate), Expires: 03/25/2025 [facility] Work Phone: Comment on above: Expected: 01/24/2024 (Approximate), Expires: 03/25/2025 THIN PREP TIS PAP AN D HR HPV DNA THIN PREP TIS PAP AND HR HPV DNA Pathology and Cytology Routine Well woman exam with routine gynecological exam Ordered: 01/24/2024 [facility] Comment on above: Ordered: 01/24/2024 THIN PREP TIS PAP AN D HR HPV DNA THIN PREP TIS PAP AND HR HPV DNA Pathology and Cytology Routine Well woman exam with routine gynecological exam H/O: hysterectomy Ordered: 01/29/2025 [facility] Comment on above: Ordered: 01/29/2025 XR Cervical spine 5 Views [facility] Payers Date Payer Category Payer Private Health Insurance [id number] 2018 [facility] BCBS [id number] 2018 Unknown BCBS BCBS xxxxxx [id number] 2018-Present [phone] [address] [place] [address] [id number] 1975 Unknown [id number] 1975 Unknown [id number] 1975 Unknown [id number] 1957 Unknown [id number] Social History Date Type Detail Facility Start: 09-30-2023 Tobacco smoking stat NHIS Smoker (finding) [facility] Start: 1975 Sex Assigned At Female F [facility] Start: 01-15-2023 End: 09-30-2023 Tobacco smoking status WAIS Smokes tobacco daily [facility] History of tobacco use Cigarette Smoker [facility] Start: 01-24-2024 End: 01-29-2025 Alcoholic beverage intake Current drinker of alcohol (finding) [facility] Start: 01-24-2024 End: 01-29-2025 History of Social function [facility] Start: 01-24-2024 End: 01-29-2025 Tobacco use panel [facility] Start: 01-15-2023 Alcohol Comment 1-2 drinks 2-4 x a month in the past year, Caffeine intake: 3-4 cups per day [facility] Start: 1975 Sex assigned at Not on file [facility] Sex Female (finding) [facility] Start: 02-20-2025 Tobacco smoking status Heavy t obacco smoker (finding) [facility] [place] [facility] [place] Sexual Orientation [facility] Clinical Notes 01-24-2024 to 02-20-2025 Comfort Stapleton, JOHNNY - 01/29/2025 3:00 PM EDTSjose MadhuriMADI - [...] Years. Yes, 02/20/2025 Family History Hypertension: Father. [facility] Comment on above: Result Comment: Elec [...] nursing note reviewed. Exam conducted with a power shovel operator present. Vitals: Estimated body mass index is [...] Fadumo Fuller DO documented in this encounter [facility] 01-24-2024 History of Present illness Narrative Reason [...] nursing note reviewed. Exam conducted with a power shovel operator present. 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 and was unsure if that could [...] Fadumo Fuller DO documented in this encounter [facility] Healthcare Evaluation + Plan note No data available for this section [facility] Evaluation note No assessment inform ation available [facility] Work Phone: Evaluation note Diagnosis Onset Date Contact dermatitis acute Contact dermatitis acute [facility] Work Phone: Evaluation note* Diagnosis Onset Date Resolution Status Cervical radicular pain acut e [facility] Work Phone: Evaluation note* Diagnosis Well woman exam with routine gynecological exam Routine gynecological examination Breast cancer screening by mammogram documented in this encounter [facility] HealthcareEvaluation note* Diagnosis Well woman exam with routine gynecological exam Routine gynecological examination H/O: hysterectomy Acquired absence of both cervix and uterus Breast cancer screening by mammogram documented in this encounter [facility] HealthcareHospital Discharge instructions No data available for this section [facility] Progress note No data available for this section [facility] Reason for referral (narrative)No reason for referral [facility]: Summary Purpose Family History No [...] section and content) DATE CREATED AUTHOR 08/02/2018 [facility] DATE CREATED AUTHOR AUTHOR'S ORGANIZ ATION 04/01/2020 [facility] DATE CREATED AUTHOR AUTHOR'S ORGANIZ ATION 01/30/2025 [facility] EPIC DATE CREATED AUTHOR AUTHOR'S ORGANIZ ATION 02/21/2025 Abram Alvarez [facility] Care Teams (unrecognized sec tion and content) [...] March 09, 2024 End: March 09, [address] Relationship Specialty Start Date End Date Antonia Torres MD [address] [place] [id number] PCP - General Family Medicine 01/18/[address] Relationship Specialty Start Date End Date Antonia Torres MD [address] [place] [id number] PCP - General Family Medicine 01/18/[address] Relationship Specialty Start Date End Date Antonia Torres MD [address] [place] [id number] PCP - General Family Medicine 01/18/[address] Relationship Specialty Start Date End Date Antonia Torres MD [address] [place] [id number] PCP - General Family Medicine 01/18/[address] Relationship Specialty Start Date End Date Antonia Torres MD [address] [place] [id number] PCP - General Family Medicine 01/18/23 Goals [...] BE BASED ON THE PRIMARY CLINICAL RECORDS. [employer] [facility]. provides no warranty or guarantee of the accuracy or completeness of information in this document.
[2025-03-21 10:37] VITALS: BP 116/73; PULSE 81; TEMP 36.4; O2SAT 98
[2025-03-21 10:52] VITALS: BP 128/80; PULSE 61; O2SAT 100
[2025-03-21 11:03] VITALS: BP 137/85; PULSE 75; O2SAT 100
== END 2025-03-21 11:03 | disposition home or self-care (01) ==
LOC: SURGOUT 08:32
PROVIDERS: PCP Family Medicine; Visit Provider Surgery
PROC: (CPT 812; principal; 2025-03-21 09:30)
DX: Z12.11 Encounter for screening for malignant neoplasm of colon (principal); Z90.710 Acquired absence of both cervix and uterus; Z90.722 Acquired absence of ovaries, bilateral; Z90.79 Acquired absence of other genital organ(s); F17.210 Nicotine dependence, cigarettes, uncomplicated
CPT/HCPCS: 45378; J2704